=== PATIENT | female | born 1950 | race Caucasian/White ===

== ENCOUNTER 2018-03-09 17:42 | Inpatient (IN) | payer MEDICARE ==
[2018-03-09 18:29] LABS: #Basophils 0.1 thou/uL (0.0-0.2); #Eosinphils 0.1 thou/uL (0.0-0.7); #Lymphocytes 2.4 thou/uL (1.20-3.40); #Monocytes 0.8 thou/uL (0.11-0.59); #Neutrophils 9.4 thou/uL (1.40-6.50); %Basophils 0.5 % (0.0-1.0); %Eosinophils 0.8 % (0.0-10.0); %Lymphocytes 19.1 % (21.0-51.0); %Monocytes 6.1 % (0.0-10.0); %Neutrophils 73.6 % (42.0-75.0); Hemoglobin 13.3 g/dL (12.0-16.0); Mean Corpuscular HGB CONC 33.1 g/dL (32.0-36.0); Mean Corpuscular Hemoglobin 27.6 pg (27.0-31.0); Mean Corpuscular Volume 83.3 fl (81.0-99.0); Mean Platelet Volume 8.5 fL (7.4-10.4); Platelet Count 255 thou/uL (130-400); Red Blood Cell (RBC) Count 4.82 mill/uL (4.20-5.40); White Blood Cell (WBC) Count 12.8 thou/uL (4.8-10.8)
[2018-03-09 18:30] LABS: Bilirubin Negative (Negative); Blood, Urine Negative (Negative); Clarity Clear (Clear); Glucose, Urine (Dipstick) Negative (Negative); Leukocyte Negative (Negative); Nitrite Negative (Negative); Protein, Urine (Dipstick) Trace mg/dL (Neg-Trace); pH, Urine 6.5 (5.0-9.0)
[2018-03-09 18:46] LABS: ALT (SGPT) Less than 6 U/L (8-55); AST (SGOT) 15 U/L (5-34); Albumin 4.3 g/dL (3.4-4.8); Alkaline Phosphatase 85 U/L (40-150); Anion Gap 14 mmol/L (10-20); BUN (Urea Nitrogen) 13 mg/dL (9.8-20.1); Bilirubin, Total 0.8 mg/dL (0.2-1.2); CK (CPK) 231 U/L (29-168); CKMB 1.1 ng/mL (0-6.6); Calc. Creatinine Clearance 0 mL/min (70-130); Calcium 9.7 mg/dL (7.8-10.44); Carbon Dioxide 25 mmol/L (23-31); Chloride 104 mmol/L (98-107); Estimated GFR-MDRD 55; Globulin 3.2 g/dL (2.4-3.5); Glucose 112 mg/dL (80-115); Lipase 6 U/L (8-78); Potassium 4.1 mmol/L (3.5-5.1); Protein, Total 7.5 g/dL (6.0-8.3); Sodium 139 mmol/L (136-145); Troponin I 0.012 ng/mL (< 0.028)
--- NOTE | 2018-03-09 19:22 | RAD ---
SINGLE VIEW OF THE CHEST: 03/09/18 COMPARISON: None. HISTORY: Shortness of breath for four days and dyspnea. FINDINGS: Single view of the chest shows a normal sized cardiomediastinal silhouette. There is no evidence of c onsolidation, mass, or pleural effusion. The bones are unremarkable. IMPRESSION: No evidence of acute cardiopulmonary disease. POS: [facility]
[2018-03-09] MEDS ORDERED: Enoxaparin Sodium 80 MG/0.8 ML SYRINGE ONE (19:26)
[2018-03-09] MEDS ORDERED: Enoxaparin Sodium 100 MG/ML SYRINGE ONE (19:26)
[2018-03-09] MEDS ORDERED: methylPREDNISolone Sod Succ/PF 125 MG/2 ML VIAL ONE (19:26)
[2018-03-09 22:04] LABS: Troponin I Less than 0.010 ng/mL (< 0.028)
[2018-03-09 22:30] VITALS: BMI 63.8
[2018-03-09 22:39] LABS: Lactic Acid 0.9 mmol/L (0.5-2.2)
[2018-03-09] MEDS ORDERED: Gabapentin 400 MG CAP PO SCH (23:30)
[2018-03-09] MEDS ORDERED: traZODone HCl 50 MG TAB PO SCH (23:30)
[2018-03-10] MEDS ORDERED: Acetaminophen 325 MG TAB PO PRN (01:23)
[2018-03-10] MEDS ORDERED: Guaifenesin DM 100-10/5 ML UDCUP PO PRN (01:23)
[2018-03-10] MEDS ORDERED: Ondansetron HCl/PF 4 MG/2 ML Vial IVP PRN (01:23)
[2018-03-10] MEDS ORDERED: traZODone HCl 50 MG TAB PO PRN (01:23)
[2018-03-10] MEDS ORDERED: Albuterol Sulfate 2.5 mg/3 ml Neb NEB PRN (01:23)
--- NOTE | 2018-03-10 02:41 | HP ---
REASON FOR ADMISSION: Likely BACLOFEN intolerance, acute encephalopathy, acute respiratory failure with hypoxia again due to baclofen. HISTORY OF PRESENTING ILLNESS: The patient gives history of starting baclofen from last 3 days. She was on Flexeril, but her insurance was not covering Flexeril and, Dr. Danny Barksdale, her primary care physician switched her over to baclofen. She states she has been feeling crazy after starting baclofen. She could not walk straight and she was feeling lethargic. She was peeing all over and could not think straight. Around 4:30 p.m., she went to see Dr. Barksdale for the same. She was asked to go to the emergency room for further workup by her primary care physician. The patient states she has got bad back and neck area with herniated disk and hence the need for muscle relaxants. She normally ambulates with a cane. Currently, she is fully oriented and this entire history is obtained from her. PAST MEDICAL AND SURGICAL HISTORY: Hypertension, history of asthma, paroxysmal atrial fibrillation with prior EP study done in 1996 in [facility], right Achilles heel repair, morbid obesity, tonsillectomy, GERD, hypothyroidism , insomnia. CURRENT MEDICATIONS: Advair Diskus 100/50 mcg 2 puffs twice daily, albuterol inhaler q.6 hourly p.r.n., losartan 50 mg daily, trazodone 100 mg p.o. at bedtime, levothyroxine 150 mcg daily, Protonix 40 mg daily, Plavix 75 mg daily, VESIcare 10 mg daily, gabapentin 400 mg p.o. 3 times daily, metoclopramide 10 mg p.o. twice daily. ALLERGIES: SULFACETAMIDE. PERSONAL HISTORY: Does not abuse alcohol or drugs. No history of smoking. FAMILY HISTORY: Mother of a stroke and its complications at the age of 88 years. Father at the age of 89 years from old age. Code status is DNR. This was discussed with patient. Power of database tester is her son, Mr. Romero, number to reach is [phone]. REVIEW OF SYSTEMS: The following complete review of systems was negative, unless otherwise mentioned in the HPI or below: Constitutional: Weight loss or gain, ability to conduct usual activities. Skin: Rash, itching. Eyes: Double vision, pain. ENT/Mouth: Nose bleeding, neck stiffness, pain, tenderness. Cardiovascular: Palpitations, dyspnea on exertion, orthopnea. Respiratory: Shortness of breath, wheezing, cough, hemoptysis, fever or night sweats. Gastrointestinal: Poor appetite, abdominal pain, heartburn, nausea, vomiting, constipation, or diarrhea. Genitourinary: Urgency, frequency, dysuria, nocturia. Musculoskeletal: Pain, swelling. Neurologic/Psychiatric: Anxiety, depression. Allergy/Immunologic: Skin rash, bleeding tendency. PHYSICAL EXAMINATION: GENERAL: The patient is a 68-year-old female, who is currently not in any acute distress. VITAL SIGNS: Blood pressure 156/94, pulse 86 per minute, respiratory rate 24 per minute, temperature 99.5 degrees Fahrenheit, saturating 96% on 3 liters nasal cannula. NECK: Supple, no elevated JVD. HEENT: Eyes: Extraocular muscles intact. Pupils are reacting to light. Oral cavity, mucous membranes are moist. No exudates or congestion. CARDIOVASCULAR SYSTEM: S1, S2 heard. Regular rhythm. RESPIRATORY SYSTEM: Air entry 1+ bilateral. No rales or rhonchi. ABDOMEN: Soft, bowel sounds heard. No tenderness, rigidity or guarding. EXTREMITIES: No peripheral edema or calf tenderness. VASCULAR SYSTEM: Peripheral pulses 1+ bilateral, no ischemic ulcerations or gangrene. CENTRAL NERVOUS SYSTEM: No gross focal deficits seen. The patient is alert, awake, oriented x3. PSYCHIATRIC SYSTEM: The patient's mood is euthymic. No hallucinations or delusions. LABORATORY AND X-RAY FINDINGS: EKG done shows normal sinus rhythm at 84 beats per minute with poor R-wave progression. White count of 12, H&H 13 and 40, platelet count 255 with 73% neutrophils. D-dimer 1.0. Electrolytes are stable. BUN 13, creatinine 1.0. Glucose 112. Liver enzymes within normal limits. CK-MB 1.1. Troponin x2 is negative. BNP 44. Lipase is 6. Chest x- ray done shows no acute cardiopulmonary abnormalities. CLINICAL IMPRESSION AND PLAN: The patient will be admitted to telemetry for likely BACLOFEN intolerance/overdose with acute encephalopathy and acute hypoxic respiratory failure, which is slowly resolving on supplemental oxygen at present. The patient's mind is also clearing up and she is responding well to verbal questions. The patient states she is so much better now than she was in the morning. She is on multiple medications for her disk issues and chronic pain. The patient is also on trazodone, Reglan, gabapentin, all of which can cause psychotropic issues. Her baclofen will be held completely for now. We will continue her Plavix, Synthroid, Cozaar, Reglan, and half the dose of trazodone for now. PT evaluation will be requested in the morning. Once the patient is weaned off oxygen, she can be safely discharged home. She is otherwise hemodynamically stable at present. Please note I have seen and examined patient on 03/09/2018. JEMALD
[2018-03-10 05:40] LABS: #Lymphocytes 1.4 thou/uL (1.20-3.40); #Monocytes 0.1 thou/uL (0.11-0.59); #Neutrophils 6.1 thou/uL (1.40-6.50); %Eosinophils 0.4 % (0.0-10.0); %Lymphocytes 18.6 % (21.0-51.0); %Monocytes 1.1 % (0.0-10.0); %Neutrophils 79.9 % (42.0-75.0); Hemoglobin 13.2 g/dL (12.0-16.0); Mean Corpuscular HGB CONC 32.3 g/dL (32.0-36.0); Mean Corpuscular Hemoglobin 27.6 pg (27.0-31.0); Mean Corpuscular Volume 85.5 fl (81.0-99.0); Mean Platelet Volume 8.3 fL (7.4-10.4); Platelet Count 246 thou/uL (130-400); RBC Distribution Width 13.7 % (11.5-14.5); Red Blood Cell (RBC) Count 4.79 mill/uL (4.20-5.40); White Blood Cell (WBC) Count 7.6 thou/uL (4.8-10.8)
[2018-03-10 05:53] LABS: Anion Gap 11 mmol/L (10-20); BUN (Urea Nitrogen) 16 mg/dL (9.8-20.1); Calc. Creatinine Clearance 162 mL/min (70-130); Calcium 9.6 mg/dL (7.8-10.44); Carbon Dioxide 26 mmol/L (23-31); Chloride 104 mmol/L (98-107); Estimated GFR-MDRD 57; Glucose 177 mg/dL (80-115); Potassium 4.8 mmol/L (3.5-5.1); Sodium 136 mmol/L (136-145)
[2018-03-10] MEDS ORDERED: Levothyroxine Sodium 25 MCG TAB PO SCH (06:00)
[2018-03-10] MEDS ORDERED: Levothyroxine Sodium 112 MCG TAB PO SCH (06:00)
[2018-03-10] MEDS: Metoclopramide HCl 10 MG TAB PO SCH ×2 (07:05→09:17)
[2018-03-10 08:31] VITALS: TEMP 97.9
[2018-03-10] MEDS ORDERED: Clopidogrel Bisulfate 75 MG TAB PO SCH (09:00)
[2018-03-10] MEDS ORDERED: Gabapentin 400 MG CAP PO SCH (09:00)
[2018-03-10] MEDS ORDERED: TROSPIUM 20 MG TABLET PO SCH ×2 (09:00→11:00)
[2018-03-10] MEDS ORDERED: Enoxaparin Sodium 40 MG/0.4 ML SYRINGE SC SCH (09:00)
[2018-03-10] MEDS ORDERED: Losartan 25 MG TAB PO SCH (09:00)
[2018-03-10] MEDS ORDERED: Famotidine 20 MG TAB PO SCH (09:00)
--- NOTE | 2018-03-10 13:19 | ULT ---
BILATERAL LOWER EXTREMITY VENOUS DUPLEX ULTRASOUND INCLUDING COLOR AND SPECTRAL DOPPLER IMAGING: HISTORY: A 68-year-old female with a history of hypoxia and shortness of breath. FINDINGS: Exam performed from groin to ankle including visualized greater saphenous, common femoral, superficia l femoral, profunda femoral, popliteal, trifurcation, and posterior tibial vein regions. There is ph asic flow with normal compressibility and normal augmentation at all levels. No intraluminal thrombu s. IMPRESSION: No evidence for deep venous thrombosis. Exam was somewhat limited technically because of large body habitus. POS: [facility]
[2018-03-10 15:25] VITALS: BP 136/79
--- NOTE | 2018-03-10 22:27 | PDOC.EVN ---
Event Note - Event Note Event Note: discharge summary dictated [id number]
--- NOTE | 2018-03-11 07:11 | DIS ---
DATE OF ADMISSION: 03/09/2018 DATE OF DISCHARGE: 03/10/2018 DISCHARGE DIAGNOSES: 1. Baclofen intolerance with acute encephalopathy. 2. Acute hypoxic respiratory insufficiency, likely secondary to baclofen sedation. 3. Hypertension. 4. History of asthma. 5. Paroxysmal atrial fibrillation. 6. Hypothyroidism. 7. Morbid obesity. DISCHARGE DIAGNOSES: 1. Baclofen intolerance with acute encephalopathy. 2. Acute hypoxic respiratory insufficiency, likely secondary to baclofen sedation. 3. Hypertension 4. History of asthma. 5. Paroxysmal atrial fibrillation. 6. Hypothyroidism. 7. Morbid obesity. HOSPITAL COURSE: The patient is a 68-year-old female with a past medical history of asthma, hyperten kasandra, paroxysmal atrial fibrillation with prior EP study done in 1996, GERD, hypothyroidism, and morb id obesity who presents with "feeling crazy" after starting baclofen. The patient could not walk str aight and was feeling lethargic and had some urinary incontinence. The patient was asked to go to [facility] ED after she saw her PCP. The patient states that she had been doing very well on Flexeril 10 mg t .i.d. as needed. However, her insurance decided they would cover baclofen instead and she actually s tarted feeling strange after starting that about 3 days prior to admission. The patient was admitted . She was slightly hypoxic. She did have a slightly elevated D-dimer. The patient's baclofen was h eld and she actually improve the next day. The patient states she was back to her old self. Her oxy gen was also weaned off. She was trialed without oxygen and she did well. Her D-dimer was slightly elevated. However, she could not do a CTP or a VQ scan; however, she did have leg Dopplers done [facility] were negative for DVT bilaterally. The patient was discharged with being off of her baclofen and p utting her back on the Flexeril. Of note, the patient actually was told that the Flexeril would be a ffordable on the 4 dollar list at most pharmacies. DISCHARGE PHYSICAL EXAMINATION: VITAL SIGNS: Temperature 97.9, pulse 87, respirations 20, blood pressure 157/91. GENERAL: Awake, alert, oriented, and morbidly obese. HEENT: Mucous membranes moist. HEART: Regular rate and rhythm, no murmurs, rubs or gallops. LUNGS: Clear to auscultation bilaterally. ABDOMEN: Nontender, nondistended. EXTREMITIES: No cyanosis, clubbing or edema. DISCHARGE MEDICATIONS: 1. Tylenol #3. 2. Plavix 75 mg p.o. daily. 3. Flexeril 10 mg p.o. t.i.d. p.r.n. for muscle spasms. 4. Synthroid 137 mcg p.o. daily. 5. Losartan 50 mg p.o. daily. 6. Reglan 10 mg p.o. b.i.d. 7. Protonix 40 mg p.o. daily. 8. VESIcare 10 mg p.o. daily. 9. Trazodone 100 mg p.o. at bedtime. 10. Kenalog cream. DISCHARGE FOLLOWUP: The patient will follow up with her PCP, Dr. Danny Barksdale, in the next 3-4 days aft er discharge.
== END 2018-03-10 17:19 | disposition home or self-care (01) | DRG 189 ==
LOC: SCSER 17:42 → 2NO 19:14
PROVIDERS: ADMIT Emergency Medicine; ATTEND Emergency Medicine
DX: J96.01 Acute respiratory failure with hypoxia (principal); G93.40 Encephalopathy, unspecified; Z68.44 Body mass index [BMI] 60.0-69.9, adult; T42.8X5A Adverse effect of antiparkinsonism drugs and other central muscle-tone depressants, initial encounter; Z79.899 Other long term (current) drug therapy; I10 Essential (primary) hypertension; J45.909 Unspecified asthma, uncomplicated; I48.0 Paroxysmal atrial fibrillation; E66.01 Morbid (severe) obesity due to excess calories; K21.9 Gastro-esophageal reflux disease without esophagitis; G47.00 Insomnia, unspecified; E03.9 Hypothyroidism, unspecified; Z79.02 Long term (current) use of antithrombotics/antiplatelets; Z88.2 Allergy status to sulfonamides
CPT/HCPCS: 36415; 71045; 80048; 80053; 81003; 82553; 83605; 83690; 83880; 84484; 85025; 85379; 87040; 93005; 93970; 94640; 96372; 96374; A4353; J1650; J1956; J2930; J7620

== ENCOUNTER 2018-10-01 10:25 | Emergency (ER) | payer MEDICARE ==
[2018-10-01] MEDS ORDERED: Ketorolac Tromethamine 30 MG/ML VIAL ONE (10:42)
== END 2018-10-01 11:18 | disposition home or self-care (01) ==
LOC: SCSER 10:25
DX: M25.562 Pain in left knee (principal); M25.561 Pain in right knee; E03.9 Hypothyroidism, unspecified; K21.9 Gastro-esophageal reflux disease without esophagitis; I10 Essential (primary) hypertension; J45.909 Unspecified asthma, uncomplicated
CPT/HCPCS: 96372; J1885

== ENCOUNTER 2018-11-09 19:04 | Inpatient (IN) | payer MEDICARE ==
[2018-11-09] MEDS ORDERED: Diltiazem 125 MG/25 ML ONE (20:05)
[2018-11-09 20:06] LABS: #Eosinphils 0.1 thou/uL (0.0-0.7); #Lymphocytes 1.5 thou/uL (1.20-3.40); #Monocytes 0.7 thou/uL (0.11-0.59); #Neutrophils 8.9 thou/uL (1.40-6.50); %Basophils 0.3 % (0.0-1.0); %Eosinophils 0.6 % (0.0-10.0); %Lymphocytes 13.1 % (21.0-51.0); %Monocytes 6.1 % (0.0-10.0); %Neutrophils 79.9 % (42.0-75.0); Hemoglobin 12.4 g/dL (12.0-16.0); Mean Corpuscular HGB CONC 31.3 g/dL (32.0-36.0); Mean Corpuscular Hemoglobin 27.4 pg (27.0-31.0); Mean Corpuscular Volume 87.8 fL (78.0-98.0); Platelet Count 308 thou/uL (130-400); RBC Distribution Width 13.7 % (11.5-14.5); Red Blood Cell (RBC) Count 4.52 mill/uL (4.20-5.40); White Blood Cell (WBC) Count 11.1 thou/uL (4.8-10.8)
[2018-11-09 20:28] LABS: ALT (SGPT) Less than 7 U/L (8-55); AST (SGOT) 17 U/L (5-34); Alkaline Phosphatase 89 U/L (40-150); Anion Gap 10 mmol/L (10-20); BUN (Urea Nitrogen) 12 mg/dL (9.8-20.1); Bilirubin, Total 0.5 mg/dL (0.2-1.2); CK (CPK) 679 U/L (29-168); Calc. Creatinine Clearance 0 mL/min (70-130); Calcium 9.5 mg/dL (7.8-10.44); Carbon Dioxide 32 mmol/L (23-31); Chloride 102 mmol/L (98-107); Estimated GFR-MDRD 41; Globulin 3.2 g/dL (2.4-3.5); Glucose 130 mg/dL (80-115); Potassium 4.8 mmol/L (3.5-5.1); Protein, Total 7.2 g/dL (6.0-8.3); Sodium 139 mmol/L (136-145)
[2018-11-09] MEDS ORDERED: Diltiazem HCl 125 MG, Admixture Fee 1 EACH in Sodium Chloride 0.9% 100 ML IVPB SCH ×2 (20:30→21:30)
[2018-11-09 20:46] LABS: Bilirubin Moderate (Negative); Blood, Urine Negative (Negative); Clarity CLEAR (Clear); Glucose, Urine (Dipstick) Negative (Negative); Leukocyte Negative (Negative); Nitrite Negative (Negative); Protein, Urine (Dipstick) 30 mg/dL (Neg-Trace); Specific Gravity, Urine 1.027 (1.002-1.036)
[2018-11-09 20:48] LABS: Bacteria/HPF None Seen HPF (None Seen); Pathc Cast-AUWi Flag 2.32 (0-2.49); RBC/HPF 0-3 HPF (0-3); WBC/HPF 0-3 HPF (0-3)
--- NOTE | 2018-11-09 20:48 | RAD ---
FRONTAL VIEW CHEST: Date: 11/09/18 COMPARISON: 03/09/18. INDICATION: History of multiple falls, chest pain. FINDINGS: Cardiac silhouette is enlarged. There is interstitial opacification and pulmonary vascular congestion bilaterally. No obvious effusion. Left lateral lung base is partially excluded. IMPRESSION: Findings which favor decompensated CHF. Correlate clinically. Imaging follow-up is recommended. POS: [facility]
[2018-11-09 21:03] LABS: Renal Epithelial 0-3 HPF (0-3)
[2018-11-09] MEDS ORDERED: Morphine 4 MG/ML VIAL ONE (21:52)
[2018-11-10] MEDS ORDERED: Ondansetron PF 4 MG/2 ML Vial IVP PRN (00:27)
[2018-11-10] MEDS ORDERED: Acetaminophen 325 MG TAB PO PRN (00:27)
[2018-11-10 01:23] LABS: Troponin I 0.012 ng/mL (< 0.028)
--- NOTE | 2018-11-10 02:26 | HP ---
PRIMARY CARE DOCTOR: Dr. Danny Barksdale. CODE STATUS: Full code. TIME OF EVALUATION: 12:00 a.m. CHIEF COMPLAINT: Weakness. HISTORY OF PRESENT ILLNESS: This is a 68-year-old female patient with past medical history of hypertension, asthma, hypothyroidism, GERD, came to the hospital after having severe generalized weakness all day long, multiple times falls, no clear triggers, no alleviating factors, the patient developed also some dyspnea and chest pain. No nausea. No fevers. She reported the symptoms were moderate. They started insidiously and has gradually been getting worse. REVIEW OF SYSTEMS: CONSTITUTIONAL: No fever or chills. The patient reported generalized weakness. RESPIRATORY: No cough, sputum production, or shortness of breath. CARDIOVASCULAR: No chest pain or palpitation. GASTROINTESTINAL: No nausea. No vomiting or abdominal pain. PRODUCTION LINE WORKER: No dizziness, headache, or feeling lightheaded. GENITOURINARY: No burning on urination. EXTREMITIES: Bilateral leg swelling. All other systems were reviewed and negative except for the findings mentioned above. PAST MEDICAL HISTORY: As mentioned in the HPI. FAMILY HISTORY: Reviewed and noncontributory to current presentation. PAST SURGICAL HISTORY: Cardiac cath in 1996. Surgical history of orthopedic surgery, right Achilles heel repair, surgical history of tonsillectomy. PSYCHIATRIC HISTORY: No previous psych history. SOCIAL HISTORY: No alcohol, no drugs, and no smoking history. ALLERGIES: IODINE AND SULFA. REPORTED MEDICATIONS: 1. Oxybutynin. 2. Trazodone. 3. Losartan. 4. Levofloxacin. 5. Pantoprazole. 6. Tramadol. 7. Metoclopramide. 8. Cyclobenzaprine. 9. Benzonatate. 10. Gabapentin. 11. Tylenol 3. 12. [place]. PHYSICAL EXAMINATION: VITAL SIGNS: On presentation, blood pressure 143/79 with heart rate 96, respiratory rate was 22, temperature 98.8, pain was 8/10. Oxygen saturation was 94%. GENERAL APPEARANCE: The patient is alert, oriented, not in acute distress. HEENT: Eyes; normal conjunctivae. Moist oral mucosa. Anicteric. No JVD. RESPIRATORY: Bilateral air entry. No rales. No wheezing. Symmetric expansion. CARDIOVASCULAR: Irregular rhythm. Rate is controlled. No murmurs. No gallops. Bilateral leg edema. The patient is on Cardizem drip. ABDOMEN: Soft. Normal bowel sounds. MUSCULOSKELETAL: Baseline range of motion and strength. No tenderness. Skin is warm, intact. No pallor. No rash. No redness. Peripheral pulses are present. Capillary refill seems to be intact. NEUROLOGIC: No evidence of any new focal weakness. Baseline speech. Cranial nerves seems to be intact. PSYCHIATRIC: The patient has good mood. No anxiety. Optimal judgment. Baseline for this patient, the patient is unable to ambulate by herself, she needs help and she is morbidly obese. DIAGNOSTIC DATA: EKG was reviewed. The patient presented with sinus rhythm with premature ventricular complexes at a rate of 93, FL 146, QRS 80, QT corrected 432. Also another EKG was done showed atrial fibrillation with RVR, nonspecific ST abnormalities, ventricular rate was 128. FL undetermined, QRS 82, QT corrected 505. LABORATORY DATA: Labs are reviewed. The patient has white count 11.1, hemoglobin 12.4, MCV 87.8, platelet count 308. Chemistry; sodium 139, potassium 4.8, chloride 102, carbon dioxide 32, anion gap 10, BUN 12, creatinine 1.30, previous creatinine was 0.97, GFR 41, glucose 130, lactic acid 1.4, calcium 9.5, magnesium 2.0, total bilirubin 0.5, AST 17, ALT less than 7, alk phos 89. CK 679. Troponin 0.010. Beta natriuretic peptide 18.5. Serum total protein 7.2, albumin 4.0, globulin 3.2, albumin-globulin ratio is 1.3. TSH 27. Urine was done and showed no white count. ASSESSMENT AND PLAN: The patient will be placed in the hospital due to the following medical problems: 1. Atrial fibrillation with rapid ventricular response. The patient was given Cardizem. The patient was put on Cardizem drip. Rate is controlled right now. We will reconcile home medications, call Cardiology for medication adjustment in the morning. 2. Mildly elevated creatinine of 1.3, it was 0.9 at the time of admission, we will monitor, and will treat accordingly. 3. Hyperglycemia, glucose 130. No history of diabetes reported. We will monitor and treat accordingly. 4. Deep venous thrombosis prophylaxis. 5. Morbidly obese. Advised to lose weight. 6. The patient will need certified social workers in health care and case repairer evaluation since the patient is living alone. The son who takes care of her is in the hospital and unable to continue caring for the patient. Job ID: [id number] MTDD
[2018-11-10 03:49] LABS: #Eosinphils 0.1 thou/uL (0.0-0.7); #Lymphocytes 1.7 thou/uL (1.20-3.40); #Monocytes 0.8 thou/uL (0.11-0.59); #Neutrophils 7.4 thou/uL (1.40-6.50); %Basophils 0.3 % (0.0-1.0); %Lymphocytes 16.5 % (21.0-51.0); %Monocytes 8.3 % (0.0-10.0); %Neutrophils 73.9 % (42.0-75.0); Hemoglobin 11.7 g/dL (12.0-16.0); Mean Corpuscular Hemoglobin 28.2 pg (27.0-31.0); Mean Platelet Volume 7.7 fL (7.4-10.4); Platelet Count 254 thou/uL (130-400); RBC Distribution Width 13.7 % (11.5-14.5); Red Blood Cell (RBC) Count 4.16 mill/uL (4.20-5.40)
[2018-11-10 04:08] LABS: Anion Gap 14 mmol/L (10-20); BUN (Urea Nitrogen) 10 mg/dL (9.8-20.1); Calc. Creatinine Clearance 147 mL/min (70-130); Calcium 8.7 mg/dL (7.8-10.44); Carbon Dioxide 27 mmol/L (23-31); Chloride 102 mmol/L (98-107); Estimated GFR-MDRD 49; Glucose 118 mg/dL (80-115); Potassium 3.8 mmol/L (3.5-5.1); Sodium 139 mmol/L (136-145)
[2018-11-10 04:13] LABS: Troponin I 0.014 ng/mL (< 0.028)
[2018-11-10] MEDS: Furosemide 40 MG/4 ML VIAL SLOW IVP SCH ×2 (05:48→14:23)
[2018-11-10] MEDS ORDERED: Enoxaparin Sodium 40 MG/0.4 ML SYRINGE SC SCH (09:00)
--- NOTE | 2018-11-10 17:40 | CON ---
DATE OF CONSULTATION: CARDIOLOGY CONSULT PRIMARY CARE PHYSICIAN: Danny Barksdale DO PRIMARY PIPE BUFFER: Padma Nolan MD REASON FOR CONSULT: Atrial fibrillation with rapid ventricular response. HISTORY OF PRESENT ILLNESS: Ms. Flores is a 68-year-old female with a significant history of hypertension, asthma, hypothyroidism, COPD, and paroxysmal atrial fibrillation with EP study in 1996 in [place], prediabetic and obese. The patient started having feeling of the "flipping of heart" for 6 weeks. Also, with the intermittent sharp and squeezing-like pain for several seconds for over 6 weeks, which is very similar to symptom when she was found to have atrial fibrillation in 1996, however yesterday she feel worsening of dizziness and loss of balance. She fell twice yesterday at home and also she had worsening of shortness of breath. About the reason, the patient called the EMS and the patient was transferred to emergency department for further evaluation and treatment. She was found to have the atrial fibrillation with rapid ventricular response with heart rate more than 200. The patient was given Cardizem 10 mg IV push bolus with Cardizem drip, and the patient is converted back to sinus rhythm. When the patient was transferred to the telemetry floor last night around 1 o'clock in the morning, the patient's heart rate was back to the sinus rhythm, sinus rhythm is 110 this morning with Cardizem 5 mg an hour. She had a history of atrial fibrillation, however, she has not seen any cardiologists over the 2 years since she moved to the [place] from [place]. During the initial Cardiology consult assessment, the patient denied chest pain or heaviness, squeezing-like pain to her chest, fluttering, palpitation, dizziness, shortness of breath, or any other cardiac complaints. The patient is taking Plavix due to venous insufficiency. She has the ultrasound to her lower extremities, however, she cannot remember it was in the vein or artery studies. She underwent EP study in 1996 in [place]. Since then, she has not had any cardiac workup. She was in the hospital in February 2018 for encephalopathy secondary to baclofen. PAST MEDICAL HISTORY: 1. Hypertension. 2. Paroxysmal atrial fibrillation. 3. Asthma. 4. Hypothyroidism. 5. Insomnia. 6. GERD. 7. COPD, is on home O2 of 4 L nausea cannula. 8. Prediabetes. 9. Morbid obesity. 10. Vein insufficiency. PAST SURGICAL HISTORY: EP study in 1996, right Achilles heel repair, tonsillectomy, and thyroid removed in 2007. FAMILY HISTORY: The patient's father had a medical history of COPD and congestive heart failure. The patient's mother has history of pacemaker placement and CVA. The patient's grandfather in the maternal side had a history of cancer and the patient's grandmother in the maternal side has stroke. SOCIAL HISTORY: She is . She is living with her son. She is an ex- smoker, quit in 2007. She denied EtOH or illicit drug abuse. She drink Diet Coke 2 to 3 cans a day. She had a sedentary lifestyle for more than 2 years. ALLERGIES: SHE IS ALLERGIC TO IODINE, SULFA, AND BACLOFEN. HOME MEDICATIONS: 1. Losartan 50 mg once a day. 2. Levothyroxine 300 mcg once a day. 3. Plavix 75 mg once a day. 4. every 8 hours as needed. 5. Trazodone 100 mg once a day. 6. Kenalog ointment 0.5 tube topical once a day as needed. 7. VESIcare 10 mg once a day. 8. Protonix 40 mg once a day. 9. Tessalon 100 mg as needed. 10. Flexeril 10 mg for 3 times a day as needed. 11. Reglan 10 mg twice a day. 12. Gabapentin 400 mg 3 times a day. 13. Oxybutynin 10 mg twice a day. REVIEW OF SYSTEMS: Twelve-point review of systems negative unless otherwise mentioned in the HPI. The patient used to use a cane, but over the last couple of months, she is immobile and she does not move from her bed. She denies blood in the stool or urine. She has chronic joint pain. She denied constipation or diarrhea. PHYSICAL EXAMINATION: VITAL SIGNS: Blood pressure 138/69; temperature 98.1; pulse is 73, sinus rhythm ; respiratory rate 18, and O2 sat 93% with 4 L nasal cannula. GENERAL: The patient is alert and oriented x4, not in acute distress. HEENT: Head; normocephalic, atraumatic. Eyes; extraocular muscle movement intact. ENT and mouth; oral and nasal mucosa moist without lesion. RESPIRATORY: The patient has expiratory wheezing and diminished at the bases. CARDIOVASCULAR: Regular rate and rhythm. Normal S1 and S2. There is no S3 or S4. No significant murmur, hives, or thrills noted. 2+ pulses in upper extremities and 2+ pulses on the dorsalis pedis and posterior tibial. Unable to palpate popliteal and femoral due to body structure. No edema in the lower extremities. Carotid pulses are present without bruits or thrill. ABDOMEN: Soft, nontender. No mass to palpitate. Bowel sounds are present. SKIN: Warm and dry. No lesion, rash, or erythema noticed. MUSCULOSKELETAL: The patient is able to move all extremities. NEUROLOGIC: The patient is alert and oriented x4. Nonfocal. PSYCHIATRIC: The patient's mood is appropriate. DIAGNOSTIC DATA: A 12-lead EKG shows sinus rhythm with occasional PVC. WBC 10.0, hemoglobin 11.7, hematocrit of 36.6, and platelet 254. Sodium of 139, potassium 3.8, BUN 10, creatinine 1.11, glucose 118. AST 17, ALT is less than 7. Creatine kinase is 679. Troponin is 0.010, 0.012, and 0.014. TSH is 27.3158. The patient's chest x-ray shows interstitial opacification and pulmonary vascular congestion bilaterally, which indicate compensation to CHF. ASSESSMENT AND PLAN: 1. Atrial fibrillation with rapid ventricular response. The patient converted back to the sinus rhythm with Cardizem 10 mg bolus and Cardizem 5 mg an hour and she is on Lovenox 40 mg subcu once a day, which we would like to change to anticoagulants doses 1 mg/kg twice a day. Echocardiogram is ordered. At this moment, the patient is in sinus rhythm. We would like to continue to monitor on the telemetry and will be changed to p.o. form from tomorrow if the patient stay in sinus rhythm. 2. Acute kidney insufficiency. Again, the patient's kidney function is slightly improved from yesterday. We would like to continue to monitor. 3. Prediabetes. The patient's fasting blood glucose is a bit elevated, which is managed by the patient's primary care doctor. 4. Chronic obstructive pulmonary disease with home O2 of 4 L nasal cannula. The patient's condition is stable with 4 L nasal cannula, at this moment, which is managed by primary care doctor. 5. Hypothyroidism. At home, she say she is on levothyroxine 300 mcg once a day, which is not started yet, and the patient's TSH was more than 27, which is managed by the patient's primary care doctor. 6. Morbid obesity. Weight management education given to the patient. Thank you for allowing the Cardiology Service to participate in the care of this patient. We will follow along the patient's care team and make further recommendation as appropriate. Job ID: [id number] MTDD
[2018-11-10] MEDS ORDERED: Betamethasone Val 0.1% OINT 15 GM TUBE TOP PRN (19:44)
--- NOTE | 2018-11-10 19:45 | PDOC.PN ---
- Subjective Encounter Start Date: 11/10/18 Encounter Start Time: 19:25 Subjective: f/u for A-fib RVR on Cardizem/Lovenox and recent falls with weakness -: c/o bladder irritation and concern for UTI. - Objective MAR Reviewed: Yes Vital Signs & Weight: Vital Signs (12 hours) Temp Pulse Resp BP Pulse Ox 11/10/18 15:33 99.3 F 73 18 110/51 L 96 11/10/18 11:38 98.1 F 73 18 138/69 93 L Weight Weight 424 lb 1.6 oz I&O: 11/09/18 11/10/18 11/11/18 06:59 06:59 06:59 Intake Total 444 720 Output Total 225 4800 Balance 219 -4080 Result Diagrams: 11/10/18 03:41 11/10/18 03:41 Additional Labs: Laboratory Tests 11/09/18 11/09/18 11/09/18 19:52 19:52 19:52 WBC 11.1 H Creatinine 1.30 H Magnesium 2.0 Troponin I B-Natriuretic Peptide TSH 3rd Generation 27.3158 H 11/09/18 11/09/18 11/10/18 19:52 19:52 00:37 WBC Creatinine Magnesium Troponin I 0.010 0.012 B-Natriuretic Peptide 18.5 TSH 3rd Generation 11/10/18 03:41 WBC Creatinine Magnesium Troponin I 0.014 B-Natriuretic Peptide TSH 3rd Generation Radiology Reviewed by me: Yes (Echo - EF 60-65%, LAE) EKG Reviewed by me: Yes (Tele - SR) Phys Exam - Physical Examination Constitutional: NAD HEENT: PERRLA, sclera anicteric, oral pharynx no lesions Neck: no nodes, no JVD, supple, full ROM Respiratory: no wheezing, no rales, no rhonchi S1, S2 Cardiovascular: RRR, no significant murmur, no rub, gallop morbidly obese Gastrointestinal: soft, no distention, positive bowel sounds Musculoskeletal: no edema, pulses present Neurological: normal sensation, moves all 4 limbs Psychiatric: A&O x 3 Skin: normal turgor, cap refill <2 seconds Dx/Plan (1) Atrial fibrillation with RVR Code(s): I48.91 - UNSPECIFIED ATRIAL FIBRILLATION Status: Acute Comment: converted to SR on Cardizem gtt, continue IV Cardizem and transition to po in 24h, OAC options for d/c (2) Hypothyroidism Code(s): E03.9 - HYPOTHYROIDISM, UNSPECIFIED Status: Chronic Comment: Uncontrolled, start Levothyroxine, check FT4 (3) Chronic respiratory failure with hypoxia Code(s): J96.11 - CHRONIC RESPIRATORY FAILURE WITH HYPOXIA Status: Chronic Comment: Continue O2 @ baseline home requirements (4) Morbid obesity Code(s): E66.01 - MORBID (SEVERE) OBESITY DUE TO EXCESS CALORIES Status: Chronic Comment: Dietitian consult, low-fat diet (5) UTI (urinary tract infection) Status: Acute Qualifiers: Urinary tract infection type: acute cystitis Comment: Suspected, start Rocephin 2gm IV daily - Plan continue antibiotics, PT/OT, psychosocial rehabilitation counselor, out of bed/ambulate Stable currently -: Resume home medication regimen -: Start Rocephin 2gm IV daily -: Continue Cardizem gtt -: Resume Levothyroxine * D/C Lasix * AM lab: BMP
[2018-11-10] MEDS ORDERED: Trospium 20 MG TAB PO SCH (20:45)
[2018-11-10] MEDS: Acetaminophen/Codeine 30-300mg Tablet PO SCH (22:14)
[2018-11-10] MEDS: cefTRIAXone\\ROCEPHIN 2 GM in Sodium Chloride 0.9% 100 ML IVPB SCH (22:15)
[2018-11-10] MEDS: Gabapentin 400 MG CAP PO SCH (22:17)
[2018-11-11 05:54] LABS: Anion Gap 14 mmol/L (10-20); BUN (Urea Nitrogen) 12 mg/dL (9.8-20.1); Calc. Creatinine Clearance 156 mL/min (70-130); Calcium 9.4 mg/dL (7.8-10.44); Carbon Dioxide 28 mmol/L (23-31); Chloride 100 mmol/L (98-107); Estimated GFR-MDRD 52; Glucose 130 mg/dL (80-115); Potassium 4.1 mmol/L (3.5-5.1); Sodium 138 mmol/L (136-145)
[2018-11-11] MEDS: Levothyroxine Sodium 25 MCG TAB PO SCH (05:54)
[2018-11-11] MEDS: Levothyroxine Sodium 112 MCG TAB PO SCH (05:55)
[2018-11-11] MEDS: Acetaminophen/Codeine 30-300mg Tablet PO SCH ×3 (05:56→21:18)
--- NOTE | 2018-11-11 09:01 | PDOC.CTH ---
Cardiology Progress Note - Subjective The pt seen and examined. No overnight events. No cardiac complaints. Contact isolation for possible C-diff? She has been having cont. diarrhea since last night. - Objective Vital Signs Temp Pulse Resp BP Pulse Ox 11/11/18 04:05 98.6 F 87 20 134/72 93 L Weight 424 lb 1.6 oz 11/10/18 11/11/18 11/12/18 06:59 06:59 06:59 Intake Total 444 1080 Output Total 225 5850 Balance 219 -4770 - Physical Examination General/Neuro: alert & oriented x3 Neck: no JVD present Lungs: other: (diminished at bases) Heart: RRR Abdomen: soft Extremities: other: (No edema) - Telemetry Telemetry Rhythm: SR 90s - Labs Result Diagrams: 11/10/18 03:41 11/11/18 05:17 Troponin/CKMB Troponin I 0.014 ng/mL (< 0.028) 11/10/18 03:41 - Assessment/Plan 1. Afib with RVR - Remains in SR since 11/10/2018 with Cardizem drip, which will be changed Cardizem 180mg qd from today. On Lovenox 180mg subq q12hrs from today (the dose was verified by pharmacist) 2. HTN - stable 3. COPD/Asthma with Home O2 4LNC - stable 4. Hypothyroidism - Levothyroxin, which managed by PCP 5. UTI - on IV ABX; managed by PCP 6. Morbid obesity MAR reviewed 7. Diarhea. * Echo on 11/10/2018 showed EF 60-65%, mod-severe dilated LA, mild TR, and trace MR. Pt. seen and eval. by me. I agree with the A/P by the APPRAISER ART Review of Systems - Review of Systems Constitutional: reports: weakness EENTM: reports: no symptoms reported Respiratory: reports: no symptoms reported Cardiac (ROS): reports: no symptoms reported ABD/GI: reports: no symptoms reported : reports: see HPI
[2018-11-11] MEDS ORDERED: Diltiazem HCl 125 MG, Admixture Fee 1 EACH in Sodium Chloride 0.9% 100 ML IVPB SCH (09:04)
[2018-11-11] MEDS: Enoxaparin Sodium 100 MG/ML SYRINGE SC SCH ×2 (09:48→21:13)
[2018-11-11] MEDS: Enoxaparin Sodium 80 MG/0.8 ML SYRINGE SC SCH ×2 (09:48→21:13)
[2018-11-11] MEDS: Oxybutynin 5 MG TAB PO SCH ×2 (09:49→21:13)
[2018-11-11] MEDS: Gabapentin 400 MG CAP PO SCH ×3 (09:49→21:13)
--- NOTE | 2018-11-11 10:33 | CON ---
DATE OF CONSULTATION: 11/10/2018 ADDENDUM: INDICATION FOR CONSULTATION: A 68-year-old female with atrial fibrillation with rapid ventricular response. HISTORY OF PRESENT ILLNESS: Please also refer to the notes dictated by my nurse practitioner. She and we have already seen and discussed this patient. I would agree with her assessment and plan. This unfortunate lady who has had some history of atrial fibrillation in the past and also has COPD and has had some falls at home, was brought to the hospital as she has complained of some weakness yesterday. Her son usually takes care of her and he actually also was admitted to the hospital to undergo a GI surgical procedure. She has not been followed up by cap coverer for several years. Apparently, she was seen by someone in [place], so she moved here and then she almost lost to followup. She denies any chest pain, but she does have COPD and has chronic shortness of breath. She noticed that she had been having some palpitations and thus presented to the hospital, was found to have atrial fibrillation. She was given IV diltiazem and was then converted back to normal sinus rhythm. She apparently had some type of EP study in [place] in the past, but said that they were unable to do any ablation and uncertain if whether or not she was having atrial fibrillation at that time or possibly SVT or some other arrhythmia. We do not have those records available. PAST MEDICAL HISTORY: Please refer to the notes dictated. SOCIAL HISTORY: Please refer to the notes dictated. FAMILY HISTORY: Please refer to the notes dictated. REVIEW OF SYSTEMS: Please refer to the notes dictated. MEDICATIONS: Please refer to the notes dictated. PHYSICAL EXAMINATION: GENERAL: Reveals a morbidly obese female, who is in no acute distress at this time. She is very pleasant. She is oriented. VITAL SIGNS: Her blood pressure is 130/69 and she is afebrile. Heart rate is in the 70s, shows sinus rhythm, O2 saturations are 94%. She is on nasal oxygen. HEENT: Shows the head to be normocephalic and atraumatic. Carotid pulses are present. I cannot hear any bruits. Her chest has bilateral expiratory wheezing. CARDIOVASCULAR: Reveals a regular rate and rhythm at this time. There were no gross murmurs noted. ABDOMEN: Shows morbid obesity. Positive bowel sounds are present. EXTREMITIES: Showed 2+ lower extremity edema. She has what appears to be intertrigo in the right popliteal space. Pedal pulses are difficult to palpate, but appear to be present. NEUROLOGIC: She appears to be intact, but she is morbidly obese and does not get out of the bed. She actually has been falling at home, but is able to sometimes get up with a little bit of assistance. Neurologically otherwise is appropriate. SKIN: Warm and dry. LABORATORY DATA: EKG showed a sinus rhythm, but no acute changes. Her laboratory data was already outlined. She did have an elevation of BNP and also her cardiac enzymes are indeterminate, did not show any significant evidence of myocardial infarction. The EKG did not show any evidence of ischemia. IMPRESSION: 1. Atrial fibrillation with rapid ventricular response, which converted back to sinus rhythm. I would agree with the present medications with diltiazem, can switch her over to p.o. medications. Also would cover her with Lovenox due to her decreased mobility. However, she says at home, she is able to walk around. 2. Probable diastolic dysfunction with congestive heart failure. We will continue to monitor this and would agree with IV diuretics. 3. Most likely chronic kidney disease. This may be acute on chronic. This will be dealt with by the primary care physician. 4. History of chronic obstructive pulmonary disease. Would be careful with not to give her too much oxygen since she is morbidly obese, she may have CO2 retention. We are more than happy to continue to follow the patient with you throughout her course. Job ID: [id number]
[2018-11-11] MEDS: Nystatin Powder 15 GM BOT TOP SCH ×2 (12:13→21:14)
[2018-11-11] MEDS ORDERED: Saccharomyces boulardii 250 MG CAP PO SCH (12:15)
--- NOTE | 2018-11-11 13:30 | PDOC.PN ---
- Subjective Encounter Start Date: 11/11/18 Encounter Start Time: 13:30 Subjective: f/u for A-fib RVR, UTI and weakness. Feels ok but c/o diarrhea. - Objective MAR Reviewed: Yes Vital Signs & Weight: Vital Signs (12 hours) Temp Pulse Pulse Pulse Resp BP BP 11/11/18 11:05 104 H 83 109/62 114/55 L 11/11/18 04:05 98.6 F 87 20 BP Pulse Ox 11/11/18 11:05 11/11/18 04:05 134/72 93 L Weight Weight 424 lb 1.6 oz I&O: 11/10/18 11/11/18 11/12/18 06:59 06:59 06:59 Intake Total 444 1080 Output Total 225 5850 Balance 219 -4770 Result Diagrams: 11/10/18 03:41 11/11/18 05:17 Additional Labs: Laboratory Tests 11/09/18 11/09/18 11/09/18 19:52 19:52 19:52 WBC 11.1 H Creatinine 1.30 H Magnesium 2.0 Troponin I B-Natriuretic Peptide Free T4 TSH 3rd Generation 27.3158 H 11/09/18 11/09/18 11/10/18 19:52 19:52 00:37 WBC Creatinine Magnesium Troponin I 0.010 0.012 B-Natriuretic Peptide 18.5 Free T4 TSH 3rd Generation 11/10/18 11/10/18 11/11/18 03:41 03:41 05:17 WBC Creatinine 1.11 H Magnesium Troponin I 0.014 B-Natriuretic Peptide Free T4 0.78 TSH 3rd Generation Radiology Reviewed by me: Yes (Echo - EF 60-65%, mod-severe LAE) EKG Reviewed by me: Yes (Tele - SR) Phys Exam - Physical Examination Constitutional: NAD + wheezing L>R, diminished in bases S1, S2 Cardiovascular: RRR, no significant murmur, no rub, gallop + obesity Gastrointestinal: soft, non-tender, no distention, positive bowel sounds Musculoskeletal: pulses present, edema present Neurological: normal sensation, moves all 4 limbs Psychiatric: A&O x 3 Skin: normal turgor, cap refill <2 seconds Dx/Plan (1) Atrial fibrillation with RVR Code(s): I48.91 - UNSPECIFIED ATRIAL FIBRILLATION Status: Acute Comment: converted to SR on Cardizem gtt, continue Cardizem 180mg po daily, OAC options for d/c (2) Hypothyroidism Code(s): E03.9 - HYPOTHYROIDISM, UNSPECIFIED Status: Chronic Comment: Uncontrolled, start Levothyroxine (3) Chronic respiratory failure with hypoxia Code(s): J96.11 - CHRONIC RESPIRATORY FAILURE WITH HYPOXIA Status: Chronic Comment: Continue O2 @ baseline home requirements, add Duonebs q4h (4) Morbid obesity Code(s): E66.01 - MORBID (SEVERE) OBESITY DUE TO EXCESS CALORIES Status: Chronic Comment: Dietitian consult, low-fat diet (5) UTI (urinary tract infection) Status: Acute Qualifiers: Urinary tract infection type: acute cystitis Comment: Suspected, start Rocephin 2gm IV daily (6) Diarrhea Code(s): R19.7 - DIARRHEA, UNSPECIFIED Status: Acute Comment: ? infectious, check stool c. diff, stool guaiac, contact precautions pending stool study - Plan continue antibiotics, PT/OT, community mental health social worker, respiratory therapy, DVT proph w/ SCDs Stable overall -: Continue Rocephin -: Continue Diltiazem 180mg daily -: Consider OAC options -: Add Duonebs * PT for mobilizatoin * Rehab/SNF options
[2018-11-11] MEDS ORDERED: Diltiazem HCl SR 60 mg Capsule PO SCH (18:00)
[2018-11-11] MEDS: cefTRIAXone\\ROCEPHIN 2 GM in Sodium Chloride 0.9% 100 ML IVPB SCH (21:12)
[2018-11-11] MEDS: Metoclopramide HCl 10 MG TAB PO SCH (21:13)
[2018-11-12] MEDS: Levothyroxine Sodium 25 MCG TAB PO SCH (05:27)
[2018-11-12] MEDS: Levothyroxine Sodium 112 MCG TAB PO SCH (05:27)
[2018-11-12] MEDS: Acetaminophen/Codeine 30-300mg Tablet PO SCH ×3 (05:27→21:42)
[2018-11-12] MEDS: Enoxaparin Sodium 100 MG/ML SYRINGE SC SCH ×2 (08:24→21:41)
[2018-11-12] MEDS: Enoxaparin Sodium 80 MG/0.8 ML SYRINGE SC SCH ×2 (08:25→21:41)
[2018-11-12] MEDS: Gabapentin 400 MG CAP PO SCH ×3 (08:25→21:41)
[2018-11-12] MEDS: Metoclopramide HCl 10 MG TAB PO SCH ×2 (08:25→21:41)
[2018-11-12] MEDS: Oxybutynin 5 MG TAB PO SCH ×2 (08:27→21:42)
[2018-11-12] MEDS: Nystatin Powder 15 GM BOT TOP SCH ×2 (08:27→21:42)
[2018-11-12] MEDS: Saccharomyces boulardii 250 MG CAP PO SCH (08:28)
--- NOTE | 2018-11-12 08:31 | PDOC.CTH ---
Cardiology Progress Note - Subjective The pt seen and examined. No overnight events. No cardiac complaints. Around 1800 on 11/11/2018, diltiazem was increased from 180mg to 240mg due to several episodes of Afib with RVR. - Objective Vital Signs Temp Pulse Resp BP Pulse Ox 11/12/18 07:33 97.6 F 72 20 137/63 93 L 11/12/18 06:34 91 L 11/12/18 06:31 83 20 11/12/18 03:57 98.5 F 83 16 129/64 95 11/11/18 21:10 99.4 F 78 18 129/70 93 L Weight 423 lb 5 oz 11/11/18 11/12/18 11/13/18 06:59 06:59 06:59 Intake Total 1080 1295 Output Total 5850 1595 Balance -4770 -300 - Physical Examination General/Neuro: alert & oriented x3 Neck: no JVD present Lungs: other: (ex wheezing) Heart: other: (irregular) Abdomen: soft Extremities: other: (no edema) - Telemetry Telemetry Rhythm: SR 70s - Labs Result Diagrams: 11/10/18 03:41 11/11/18 05:17 Troponin/CKMB Troponin I 0.014 ng/mL (< 0.028) 11/10/18 03:41 - Assessment/Plan 1. Afib with RVR - SR with intermittent Afib with RVR since 11/11/2018 with Cardizem 240mg qd. On Lovenox 180mg subq q12hrs from today (the dose was verified by pharmacist) 2. HTN - stable 3. COPD/Asthma with Home O2 4LNC - stable 4. Hypothyroidism - Levothyroxin, which managed by PCP 5. UTI - on IV ABX; managed by PCP 6. Morbid obesity MAR reviewed 7. Diarhea. * Echo on 11/10/2018 showed EF 60-65%, mod-severe dilated LA, mild TR, and trace MR. Pt. seen and eval. by me. I agree with th ee A/Pby the CASH SALES AUDIT CLERK. The diarhea has subsided. Neg. for C.Diff. She feels better. Chest: few expiratory wheezes. RRR at present. Continue present management. She will need OAC on d/c. Suggest Eliquis if she can afford it. 5mg bid. Review of Systems - Review of Systems Constitutional: reports: no symptoms reported EENTM: reports: no symptoms reported Respiratory: reports: no symptoms reported Cardiac (ROS): reports: no symptoms reported ABD/GI: reports: no symptoms reported : reports: no symptoms reported
[2018-11-12] MEDS ORDERED: [UNRECOGNIZED DRUG - OTHER] PO SCH (09:00)
--- NOTE | 2018-11-12 12:39 | PQF ---
CLINICAL DOCUMENTATION IMPROVEMENT CLARIFICATION FORM: ICD-10 Updated PLEASE DO AN ADDENDUM TO THE PROGRESS NOTE WITH ANY DOCUMENTATION UPDATES OR ADDITIONS AND CARRY THROUGH TO DC SUMMARY. THANK YOU. DATE: 11/16/18 ATTN : Nigel TAPIA / DR. NUNEZ Please exercise your independent, professional judgment in responding to the clarification form. Clinical indicators are provided on the bottom of this form for your review Please check appropriate box(s): HEART FAILURE: A. TYPE: [ ] Systolic / HFrEF [X ] Diastolic / HFpEF [ ] Combined Systolic / Diastolic B. ACUITY [ ] Acute [ ] Acute on Chronic [ X] Chronic [ ] Other diagnosis [ ] Unable to determine In addition, please specify: Present on Admission (POA): [X] Yes [ ] No [ ] Unable to determine For continuity of documentation, please document condition throughout progress notes and discharge summary. Thank You. CLINICAL INDICATORS - SIGNS / SYMPTOMS / LABS ER NOTE: "FINDINGS WHICH FAVOR DECOMPENSATED CHF" CONSULTATION REPORT 11/10: "ACUTE CONGESTIVE HEART FAILURE" PROGRESS NOTE 11/12: " ECHO ON 11/10/2018 SHOWED EF 60-65%" RISKS: HTN COPD MORBID OBESITY TREATMENT: TELEMETRY MONITORING ECHOCARDIOGRAM CARDIOLOGY CONSULT (This form is maintained as a part of the permanent medical record) 2014 [employer]. All Rights Reserved DELMY [email or web address] Office: [phone] HOSPITALOscar
--- NOTE | 2018-11-12 16:09 | PDOC.PN ---
- Subjective Encounter Start Date: 11/12/18 Encounter Start Time: 11:40 Subjective: f/u for A-fib RVR now converting to SR on Diltiazem and severe -: deconditioning and fall. Feels better overall. - Objective MAR Reviewed: Yes Vital Signs & Weight: Vital Signs (12 hours) Temp Pulse Pulse Resp BP BP Pulse Ox 11/12/18 15:45 97.6 F 97 18 129/70 94 L 11/12/18 15:17 66 16 11/12/18 11:35 97.5 F L 66 18 129/60 98 11/12/18 11:25 86 16 11/12/18 10:35 85 144/65 H 11/12/18 07:33 97.6 F 72 20 137/63 93 L 11/12/18 06:34 91 L 11/12/18 06:31 83 20 Pulse Ox 11/12/18 15:45 11/12/18 15:17 11/12/18 11:35 11/12/18 11:25 11/12/18 10:35 96 11/12/18 07:33 11/12/18 06:34 11/12/18 06:31 Weight Weight 423 lb 5 oz I&O: 11/11/18 11/12/18 11/13/18 06:59 06:59 06:59 Intake Total 1080 1295 Output Total 5850 1595 Balance -4770 -300 Result Diagrams: 11/10/18 03:41 11/11/18 05:17 Additional Labs: Laboratory Tests 11/09/18 11/09/18 11/09/18 19:52 19:52 19:52 WBC 11.1 H Creatinine 1.30 H Magnesium 2.0 Troponin I B-Natriuretic Peptide Free T4 TSH 3rd Generation 27.3158 H 11/09/18 11/09/18 11/10/18 19:52 19:52 00:37 WBC Creatinine Magnesium Troponin I 0.010 0.012 B-Natriuretic Peptide 18.5 Free T4 TSH 3rd Generation 11/10/18 11/10/18 11/11/18 03:41 03:41 05:17 WBC Creatinine 1.11 H Magnesium Troponin I 0.014 B-Natriuretic Peptide Free T4 0.78 TSH 3rd Generation Microbiology 11/11/18 10:20 Stool Stool Occult Blood (DEANNE) - Final 11/11/18 10:20 Stool C. difficile GDH Antigen & Toxins - Final Laboratory Tests 11/09/18 11/09/18 11/09/18 19:52 19:52 19:52 WBC 11.1 H Creatinine 1.30 H Magnesium 2.0 Troponin I B-Natriuretic Peptide Free T4 TSH 3rd Generation 27.3158 H 11/09/18 11/09/18 11/10/18 19:52 19:52 00:37 WBC Creatinine Magnesium Troponin I 0.010 0.012 B-Natriuretic Peptide 18.5 Free T4 TSH 3rd Generation 11/10/18 11/10/18 11/11/18 03:41 03:41 05:17 WBC Creatinine 1.11 H Magnesium Troponin I 0.014 B-Natriuretic Peptide Free T4 0.78 TSH 3rd Generation EKG Reviewed by me: Yes (Tele - SR in 60's) Phys Exam - Physical Examination Constitutional: NAD HEENT: PERRLA, sclera anicteric, oral pharynx no lesions Neck: no nodes, no JVD, supple, full ROM diminished in bases Respiratory: no wheezing S1, S2 Cardiovascular: RRR, no significant murmur, no rub, gallop obese Gastrointestinal: soft, non-tender, no distention, positive bowel sounds Musculoskeletal: pulses present, edema present Neurological: normal sensation, moves all 4 limbs Psychiatric: A&O x 3 Skin: normal turgor, cap refill <2 seconds Dx/Plan (1) Atrial fibrillation with RVR Code(s): I48.91 - UNSPECIFIED ATRIAL FIBRILLATION Status: Acute Comment: converted to SR on Cardizem gtt, continue Cardizem 240mg po daily, OAC options for d/c (2) Hypothyroidism Code(s): E03.9 - HYPOTHYROIDISM, UNSPECIFIED Status: Chronic Comment: Uncontrolled, start Levothyroxine (3) Chronic respiratory failure with hypoxia Code(s): J96.11 - CHRONIC RESPIRATORY FAILURE WITH HYPOXIA Status: Chronic Comment: Continue O2 @ baseline home requirements, add Duonebs q4h (4) Morbid obesity Code(s): E66.01 - MORBID (SEVERE) OBESITY DUE TO EXCESS CALORIES Status: Chronic Comment: Dietitian consult, low-fat diet (5) UTI (urinary tract infection) Status: Acute Qualifiers: Urinary tract infection type: acute cystitis Comment: Suspected, continue Rocephin 2gm IV daily (6) Diarrhea Code(s): R19.7 - DIARRHEA, UNSPECIFIED Status: Acute Comment: ? infectious, check stool c. diff, stool guaiac, contact precautions pending stool study - Plan continue antibiotics, PT/OT, geriatric social work professor, out of bed/ambulate Stable currently -: Continue Rocephin -: PT for mobilization -: Continue Diltiazem 240mg po daily -: Continue Florastor * CM for SNF options * Continue Lovenox SC BID, consider OAC options prior to d/c
[2018-11-12] MEDS: cefTRIAXone\\ROCEPHIN 2 GM in Sodium Chloride 0.9% 100 ML IVPB SCH (21:41)
[2018-11-13] MEDS: Levothyroxine Sodium 112 MCG TAB PO SCH (05:49)
[2018-11-13] MEDS: Levothyroxine Sodium 25 MCG TAB PO SCH (05:49)
[2018-11-13] MEDS: Acetaminophen/Codeine 30-300mg Tablet PO SCH ×3 (05:49→21:51)
[2018-11-13] MEDS: Enoxaparin Sodium 80 MG/0.8 ML SYRINGE SC SCH (08:52)
[2018-11-13] MEDS: Enoxaparin Sodium 100 MG/ML SYRINGE SC SCH (08:53)
[2018-11-13] MEDS: Metoclopramide HCl 10 MG TAB PO SCH ×2 (08:53→21:53)
[2018-11-13] MEDS: Gabapentin 400 MG CAP PO SCH ×3 (08:53→21:53)
[2018-11-13] MEDS: Oxybutynin 5 MG TAB PO SCH ×2 (08:53→21:53)
[2018-11-13] MEDS: Saccharomyces boulardii 250 MG CAP PO SCH (08:53)
[2018-11-13] MEDS: Nystatin Powder 15 GM BOT TOP SCH ×2 (08:55→21:53)
--- NOTE | 2018-11-13 11:27 | PDOC.CTH ---
Cardiology Progress Note - Subjective No cardiac complaints. C/O wanting trazadone back at night. Feels shaky. - Objective Vital Signs Temp Pulse Resp BP Pulse Ox 11/13/18 08:53 68 11/13/18 07:50 97.8 F 68 20 138/77 97 11/13/18 07:45 97 11/13/18 07:42 68 16 11/13/18 04:00 98.0 F 68 20 128/69 92 L Weight 423 lb 5 oz 11/12/18 11/13/18 11/14/18 06:59 06:59 06:59 Intake Total 1295 1830 240 Output Total 1595 1850 Balance -300 -20 240 - Physical Examination General/Neuro: alert & oriented x3 Neck: no JVD present Lungs: CTA Heart: RRR Abdomen: NT/ND Extremities: other: (no edema) - Telemetry Telemetry Rhythm: SR - Labs Result Diagrams: 11/10/18 03:41 11/11/18 05:17 Troponin/CKMB Troponin I 0.014 ng/mL (< 0.028) 11/10/18 03:41 - Assessment/Plan 1. Afib with RVR 2. HTN 3. COPD/Asthma 4. Hypothyroidism 5. UTI 6. Morbid obesity Stable on current therapy. Rhythm remains SR for the last 48 hours. Will stop Lovenox. Add Eliquis 5mg BID. Continue antibiotics for UTI per primary team. Hopefully home soon. Pt seen and examined. Agree with above. No other changes
--- NOTE | 2018-11-13 16:41 | PDOC.PN ---
- Subjective Encounter Start Date: 11/13/18 Encounter Start Time: 16:30 Subjective: f/u for gen weakness, fall, A-fib RVR now in SR. Feels depressed and -: anxious about having to go to SNF before transitioning home. No CP, -: SOB. - Objective MAR Reviewed: Yes Vital Signs & Weight: Vital Signs (12 hours) Temp Pulse Resp BP Pulse Ox 11/13/18 14:59 73 16 11/13/18 12:55 98.3 F 80 18 127/59 L 93 L 11/13/18 11:29 83 16 11/13/18 08:53 68 11/13/18 07:50 97.8 F 68 20 138/77 97 11/13/18 07:45 97 11/13/18 07:42 68 16 Weight Weight 423 lb 5 oz I&O: 11/12/18 11/13/18 11/14/18 06:59 06:59 06:59 Intake Total 1295 1830 480 Output Total 1595 1850 Balance -300 -20 480 Result Diagrams: 11/10/18 03:41 11/11/18 05:17 Additional Labs: Microbiology 11/11/18 10:20 Stool Stool Occult Blood (DEANNE) - Final 11/11/18 10:20 Stool C. difficile GDH Antigen & Toxins - Final Laboratory Tests 11/09/18 11/09/18 11/09/18 19:52 19:52 19:52 WBC 11.1 H Creatinine 1.30 H Magnesium 2.0 Troponin I B-Natriuretic Peptide Free T4 TSH 3rd Generation 27.3158 H 11/09/18 11/09/18 11/10/18 19:52 19:52 00:37 WBC Creatinine Magnesium Troponin I 0.010 0.012 B-Natriuretic Peptide 18.5 Free T4 TSH 3rd Generation 11/10/18 11/10/18 11/11/18 03:41 03:41 05:17 WBC Creatinine 1.11 H Magnesium Troponin I 0.014 B-Natriuretic Peptide Free T4 0.78 TSH 3rd Generation EKG Reviewed by me: Yes (Tele - SR) Phys Exam - Physical Examination Constitutional: NAD HEENT: PERRLA, sclera anicteric, oral pharynx no lesions Neck: no nodes, no JVD, supple, full ROM diminished in bases Respiratory: no wheezing, no rhonchi S1, S2 Cardiovascular: RRR, no significant murmur, no rub, gallop Obese Gastrointestinal: soft, non-tender, no distention, positive bowel sounds Musculoskeletal: pulses present, edema present Neurological: normal sensation, moves all 4 limbs Psychiatric: A&O x 3 Skin: normal turgor, cap refill <2 seconds Dx/Plan (1) Atrial fibrillation with RVR Code(s): I48.91 - UNSPECIFIED ATRIAL FIBRILLATION Status: Acute Comment: converted to SR on Cardizem gtt, continue Cardizem 240mg po daily, Eliquis 5mg BID (2) Hypothyroidism Code(s): E03.9 - HYPOTHYROIDISM, UNSPECIFIED Status: Chronic Comment: Uncontrolled, start Levothyroxine (3) Chronic respiratory failure with hypoxia Code(s): J96.11 - CHRONIC RESPIRATORY FAILURE WITH HYPOXIA Status: Chronic Comment: Continue O2 @ baseline home requirements, add Duonebs q4h (4) Morbid obesity Code(s): E66.01 - MORBID (SEVERE) OBESITY DUE TO EXCESS CALORIES Status: Chronic Comment: Dietitian consult, low-fat diet (5) UTI (urinary tract infection) Status: Acute Qualifiers: Urinary tract infection type: acute cystitis Comment: Suspected, continue Rocephin 2gm IV daily another 24h then convert to po option (6) Diarrhea Code(s): R19.7 - DIARRHEA, UNSPECIFIED Status: Acute Comment: ? infectious, check stool c. diff, stool guaiac neg, resolving - Plan continue antibiotics, PT/OT, group social worker, out of bed/ambulate, DVT proph w/ SCDs Stable overall -: Continue Rocephin another 24h -: Resume Trazodone -: OOB/ambulate with PT -: Continue Diltiazem * continue Florastor * SNF options pending
[2018-11-13 18:18] LABS: Platelet Count 314 thou/uL (130-400)
[2018-11-13] MEDS ORDERED: Non-Formulary Item 1 EACH (Trazodone Hcl [Trazodone Hcl] 100 MG) PO SCH (21:00)
[2018-11-13] MEDS: Apixaban 5 MG TAB PO SCH (21:52)
[2018-11-13] MEDS: cefTRIAXone\\ROCEPHIN 2 GM in Sodium Chloride 0.9% 100 ML IVPB SCH (21:52)
[2018-11-13] MEDS: traZODone HCl 50 MG TAB PO SCH (21:54)
[2018-11-14] MEDS: Levothyroxine Sodium 112 MCG TAB PO SCH (06:07)
[2018-11-14] MEDS: Acetaminophen/Codeine 30-300mg Tablet PO SCH ×3 (06:07→21:27)
[2018-11-14] MEDS: Levothyroxine Sodium 25 MCG TAB PO SCH (06:07)
[2018-11-14] MEDS: Apixaban 5 MG TAB PO SCH ×2 (10:12→20:25)
[2018-11-14] MEDS: Saccharomyces boulardii 250 MG CAP PO SCH (10:13)
[2018-11-14] MEDS: Gabapentin 400 MG CAP PO SCH ×3 (10:13→20:25)
[2018-11-14] MEDS: Metoclopramide HCl 10 MG TAB PO SCH ×2 (10:13→20:25)
[2018-11-14] MEDS: Oxybutynin 5 MG TAB PO SCH ×2 (10:13→20:24)
[2018-11-14] MEDS: Nystatin Powder 15 GM BOT TOP SCH ×2 (10:14→20:30)
--- NOTE | 2018-11-14 11:51 | PDOC.CTH ---
Cardiology Progress Note - Subjective No overnight events. remains in NSR. - Objective Vital Signs Temp Pulse Resp BP Pulse Ox 11/14/18 11:21 79 16 11/14/18 10:12 62 11/14/18 07:30 98.9 F 60 18 118/57 L 95 11/14/18 06:56 95 11/14/18 06:54 62 16 11/14/18 03:18 97.7 F 69 18 127/63 92 L Weight 427 lb 3.2 oz 11/13/18 11/14/18 11/15/18 06:59 06:59 06:59 Intake Total 1830 1320 Output Total 1850 950 Balance -20 370 - Physical Examination General/Neuro: alert & oriented x3 Neck: no JVD present Lungs: CTA Heart: RRR Abdomen: NT/ND - Telemetry Telemetry Rhythm: SR - Labs Result Diagrams: 11/13/18 17:55 11/13/18 17:55 Troponin/CKMB Troponin I 0.014 ng/mL (< 0.028) 11/10/18 03:41 - Assessment/Plan 1. Afib with RVR 2. HTN 3. COPD/Asthma 4. Hypothyroidism 5. UTI 6. Morbid obesity Remains in NSR. Vitals stable. on Eliquis. Ok for discharge to SNF at any time.
--- NOTE | 2018-11-14 15:37 | PDOC.PN ---
- Subjective Encounter Start Date: 11/14/18 Encounter Start Time: 15:35 Subjective: f/u for A-fib RVR currently in SR on Cardizem 240mg daily and Eliquis. -: Feels ok overall. - Objective MAR Reviewed: Yes Vital Signs & Weight: Vital Signs (12 hours) Temp Pulse Resp BP Pulse Ox 11/14/18 12:00 99.2 F 70 20 123/62 94 L 11/14/18 11:21 79 16 11/14/18 10:12 62 11/14/18 07:30 98.9 F 60 18 118/57 L 95 11/14/18 06:56 95 11/14/18 06:54 62 16 Weight Weight 427 lb 3.2 oz I&O: 11/13/18 11/14/18 11/15/18 06:59 06:59 06:59 Intake Total 1830 1320 Output Total 1850 950 Balance -20 370 Result Diagrams: 11/13/18 17:55 11/13/18 17:55 Additional Labs: Microbiology 11/11/18 10:20 Stool Stool Occult Blood (DEANNE) - Final 11/11/18 10:20 Stool C. difficile GDH Antigen & Toxins - Final Laboratory Tests 11/09/18 11/09/18 11/09/18 19:52 19:52 19:52 WBC 11.1 H Creatinine 1.30 H Magnesium 2.0 Troponin I B-Natriuretic Peptide Free T4 TSH 3rd Generation 27.3158 H 11/09/18 11/09/18 11/10/18 19:52 19:52 00:37 WBC Creatinine Magnesium Troponin I 0.010 0.012 B-Natriuretic Peptide 18.5 Free T4 TSH 3rd Generation 11/10/18 11/10/18 11/11/18 03:41 03:41 05:17 WBC Creatinine 1.11 H Magnesium Troponin I 0.014 B-Natriuretic Peptide Free T4 0.78 TSH 3rd Generation EKG Reviewed by me: Yes (Tele - SR) Phys Exam - Physical Examination Constitutional: NAD HEENT: PERRLA, sclera anicteric, oral pharynx no lesions Neck: no nodes, no JVD, supple, full ROM diminished in bases S1, S2 Cardiovascular: RRR, no significant murmur, no rub, gallop obese Gastrointestinal: soft, non-tender, no distention, positive bowel sounds Musculoskeletal: pulses present, edema present Neurological: normal sensation, moves all 4 limbs Psychiatric: A&O x 3 Skin: normal turgor, cap refill <2 seconds Dx/Plan (1) Atrial fibrillation with RVR Code(s): I48.91 - UNSPECIFIED ATRIAL FIBRILLATION Status: Acute Comment: converted to SR on Cardizem gtt, continue Cardizem 240mg po daily, Eliquis 5mg BID, rate controlled (2) Hypothyroidism Code(s): E03.9 - HYPOTHYROIDISM, UNSPECIFIED Status: Chronic Comment: Uncontrolled, start Levothyroxine 137mcg daily (3) Chronic respiratory failure with hypoxia Code(s): J96.11 - CHRONIC RESPIRATORY FAILURE WITH HYPOXIA Status: Chronic Comment: Continue O2 @ baseline home requirements, add Duonebs q4h (4) Morbid obesity Code(s): E66.01 - MORBID (SEVERE) OBESITY DUE TO EXCESS CALORIES Status: Chronic Comment: Dietitian consult, low-fat diet (5) UTI (urinary tract infection) Status: Acute Qualifiers: Urinary tract infection type: acute cystitis Comment: Suspected, continue Rocephin 2gm IV daily another 24h then convert to po option (6) Diarrhea Code(s): R19.7 - DIARRHEA, UNSPECIFIED Status: Acute Comment: ? infectious, check stool c. diff, stool guaiac neg, resolving - Plan continue antibiotics, PT/OT, psychiatric social worker, respiratory therapy, out of bed/ ambulate, DVT proph w/SCDs Stable currently -: Continue Diltiazem 240mg daily -: Continue Eliquis -: OOB with PT -: SNF options pending * D/C rocephin * Start Omnicef 300mg BID
[2018-11-14] MEDS: traZODone HCl 50 MG TAB PO SCH (20:25)
[2018-11-14] MEDS: Cefdinir 300 MG CAP PO SCH (20:25)
[2018-11-15] MEDS ORDERED: hydrALAZINE 20 MG/ML VIAL SLOW IVP PRN (04:37)
[2018-11-15] MEDS: Acetaminophen/Codeine 30-300mg Tablet PO SCH ×3 (05:39→21:29)
[2018-11-15] MEDS: Levothyroxine Sodium 112 MCG TAB PO SCH (05:40)
[2018-11-15] MEDS: Levothyroxine Sodium 25 MCG TAB PO SCH (05:40)
[2018-11-15] MEDS: Metoclopramide HCl 10 MG TAB PO SCH ×2 (08:42→21:30)
[2018-11-15] MEDS: Oxybutynin 5 MG TAB PO SCH ×2 (08:42→21:29)
[2018-11-15] MEDS: Apixaban 5 MG TAB PO SCH ×2 (08:43→21:29)
[2018-11-15] MEDS: Gabapentin 400 MG CAP PO SCH ×2 (08:43→14:09)
[2018-11-15] MEDS: Saccharomyces boulardii 250 MG CAP PO SCH (08:43)
[2018-11-15] MEDS: Cefdinir 300 MG CAP PO SCH ×2 (08:43→21:29)
[2018-11-15] MEDS: Nystatin Powder 15 GM BOT TOP SCH ×2 (08:44→21:30)
--- NOTE | 2018-11-15 09:04 | PDOC.CTH ---
Cardiology Progress Note - Subjective The pt seen and examined. No overnight events. No cardiac complaints. - Objective Vital Signs Temp Pulse Resp BP Pulse Ox 11/15/18 08:43 62 11/15/18 07:47 94 L 11/15/18 07:45 62 16 94 L 11/15/18 07:26 97.7 F 60 16 121/64 92 L 11/15/18 04:45 158/74 H 11/15/18 03:32 97.7 F 64 20 178/77 H 97 Weight 432 lb 8.751 oz 11/14/18 11/15/18 11/16/18 06:59 06:59 06:59 Intake Total 1320 2180 Output Total 950 1625 Balance 370 555 - Physical Examination General/Neuro: alert & oriented x3 Neck: no JVD present Lungs: other: (mild ex. wheezing) Heart: RRR Abdomen: soft Extremities: other: (No edema) - Telemetry Telemetry Rhythm: SR 60s - Labs Result Diagrams: 11/15/18 16:53 11/15/18 16:53 Troponin/CKMB Troponin I 0.014 ng/mL (< 0.028) 11/10/18 03:41 - Assessment/Plan 1. Afib with RVR - Remains in SR during this weekend with Cardizem 240mg qd and Eliquis 5mg BID. 2. HTN - stable 3. COPD/Asthma with Home O2 4LNC - stable 4. Hypothyroidism - Levothyroxin, which managed by PCP 5. UTI - on ABX PO; managed by PCP 6. Morbid obesity 7. Diarhea - resolved MAR reviewed * Echo on 11/10/2018 showed EF 60-65%, mod-severe dilated LA, mild TR, and trace MR. pt. seen and eval. by me. I agree with the A/P by the [facility]. She is maintaining NSR. Chest clear. RRR. No edema. Review of Systems - Review of Systems Constitutional: reports: no symptoms reported EENTM: reports: no symptoms reported Respiratory: reports: no symptoms reported Cardiac (ROS): reports: no symptoms reported ABD/GI: reports: no symptoms reported : reports: no symptoms reported Musculoskeletal: reports: no symptoms reported
[2018-11-15 17:17] LABS: Hemoglobin 12.1 g/dL (12.0-16.0); Platelet Count 313 thou/uL (130-400)
--- NOTE | 2018-11-15 18:55 | PDOC.PN ---
- Subjective Encounter Start Date: 11/15/18 Encounter Start Time: 18:25 Subjective: f/u for A-fib RVR, deconditioning and UTI on Omnicef. Feels ok -: overall. Awaiting SNF transfer. - Objective MAR Reviewed: Yes Vital Signs & Weight: Vital Signs (12 hours) Temp Pulse Resp BP Pulse Ox 11/15/18 18:11 65 20 95 11/15/18 15:43 97.8 F 72 16 131/65 94 L 11/15/18 14:51 72 20 93 L 11/15/18 12:05 97.7 F 64 16 132/62 93 L 11/15/18 10:52 65 20 91 L 11/15/18 08:43 62 11/15/18 07:47 94 L 11/15/18 07:45 62 16 94 L 11/15/18 07:26 97.7 F 60 16 121/64 92 L Weight Weight 432 lb 8.751 oz I&O: 11/14/18 11/15/18 11/16/18 06:59 06:59 06:59 Intake Total 1320 2180 1200 Output Total 950 1625 1250 Balance 370 555 -50 Result Diagrams: 11/15/18 16:53 11/15/18 16:53 Additional Labs: Microbiology 11/11/18 10:20 Stool Stool Occult Blood (DEANNE) - Final 11/11/18 10:20 Stool C. difficile GDH Antigen & Toxins - Final Laboratory Tests 11/09/18 11/09/18 11/09/18 19:52 19:52 19:52 WBC 11.1 H Creatinine 1.30 H Magnesium 2.0 Troponin I B-Natriuretic Peptide Free T4 TSH 3rd Generation 27.3158 H 11/09/18 11/09/18 11/10/18 19:52 19:52 00:37 WBC Creatinine Magnesium Troponin I 0.010 0.012 B-Natriuretic Peptide 18.5 Free T4 TSH 3rd Generation 11/10/18 11/10/18 11/11/18 03:41 03:41 05:17 WBC Creatinine 1.11 H Magnesium Troponin I 0.014 B-Natriuretic Peptide Free T4 0.78 TSH 3rd Generation EKG Reviewed by me: Yes (Tele - SR) Phys Exam - Physical Examination Constitutional: NAD HEENT: PERRLA, sclera anicteric, oral pharynx no lesions Neck: no nodes, no JVD, supple, full ROM diminished in bases Respiratory: no wheezing, no rales, no rhonchi, clear to auscultation bilateral S1, S2 Cardiovascular: RRR, no significant murmur, no rub, gallop obese Gastrointestinal: soft, non-tender, no distention, positive bowel sounds Musculoskeletal: pulses present, edema present Neurological: normal sensation, moves all 4 limbs Psychiatric: A&O x 3 Skin: normal turgor, cap refill <2 seconds Dx/Plan (1) Atrial fibrillation with RVR Code(s): I48.91 - UNSPECIFIED ATRIAL FIBRILLATION Status: Acute Comment: Converted to SR on Cardizem gtt, continue Cardizem 240mg po daily, Eliquis 5mg BID, rate controlled currently (2) Hypothyroidism Code(s): E03.9 - HYPOTHYROIDISM, UNSPECIFIED Status: Chronic Comment: Uncontrolled, start Levothyroxine 137mcg daily (3) Chronic respiratory failure with hypoxia Code(s): J96.11 - CHRONIC RESPIRATORY FAILURE WITH HYPOXIA Status: Chronic Comment: Continue O2 @ baseline home requirements, add Duonebs q4h (4) Morbid obesity Code(s): E66.01 - MORBID (SEVERE) OBESITY DUE TO EXCESS CALORIES Status: Chronic Comment: Dietitian consult, low-fat diet, SNF pending (5) UTI (urinary tract infection) Status: Acute Qualifiers: Urinary tract infection type: acute cystitis Comment: Suspected, continue Omnicef 300mg BID (6) Diarrhea Code(s): R19.7 - DIARRHEA, UNSPECIFIED Status: Acute Comment: ? infectious, check stool c. diff, stool guaiac neg, resolving (7) Physical deconditioning Code(s): R53.81 - OTHER MALAISE Status: Chronic Comment: PT/OT with SNF pending - Plan crowley catheter, continue antibiotics, PT/OT, social insurance administrator, respiratory therapy, out of bed/ambulate, DVT proph w/SCDs Stable currently -: Continue Omnicef -: SNF transfer likely in am -: Continue Eliquis -: Continue Diltiazem 240mg daily * D/C to SNF in am 11/16/18
[2018-11-16] MEDS: Gabapentin 400 MG CAP PO SCH ×3 (00:48→14:29)
[2018-11-16] MEDS: traZODone HCl 50 MG TAB PO SCH (00:49)
[2018-11-16] MEDS: Acetaminophen/Codeine 30-300mg Tablet PO SCH ×3 (05:52→20:35)
[2018-11-16] MEDS: Levothyroxine Sodium 25 MCG TAB PO SCH (05:52)
[2018-11-16] MEDS: Levothyroxine Sodium 112 MCG TAB PO SCH (05:52)
[2018-11-16] MEDS: Oxybutynin 5 MG TAB PO SCH ×2 (09:09→20:35)
[2018-11-16] MEDS: Apixaban 5 MG TAB PO SCH ×2 (09:09→20:35)
[2018-11-16] MEDS: Saccharomyces boulardii 250 MG CAP PO SCH (09:09)
[2018-11-16] MEDS: Metoclopramide HCl 10 MG TAB PO SCH ×2 (09:10→20:35)
[2018-11-16] MEDS: Cefdinir 300 MG CAP PO SCH ×2 (09:10→20:35)
[2018-11-16] MEDS: Nystatin Powder 15 GM BOT TOP SCH (10:23)
--- NOTE | 2018-11-16 10:41 | PDOC.CTH ---
Cardiology Progress Note - Objective Vital Signs Temp Pulse Resp BP Pulse Ox 11/16/18 10:31 62 20 95 11/16/18 09:09 77 11/16/18 07:50 98.0 F 77 19 124/74 92 L 11/16/18 06:42 74 20 92 L 11/16/18 04:00 98.1 F 67 20 148/69 H 93 L Weight 433 lb 11/15/18 11/16/18 11/17/18 06:59 06:59 06:59 Intake Total 2180 1200 Output Total 1625 1650 Balance 555 -450 - Physical Examination General/Neuro: alert & oriented x3 Neck: no JVD present Lungs: CTA Heart: RRR Abdomen: NT/ND, soft - Labs Result Diagrams: 11/15/18 16:53 11/15/18 16:53 Troponin/CKMB Troponin I 0.014 ng/mL (< 0.028) 11/10/18 03:41 - Assessment/Plan 1. Afib with RVR - Remains in SR From a cardiac standpoint she is stable to transfer to rehab. with Cardizem 240mg qd and Eliquis 5mg BID. 2. HTN - stable 3. COPD/Asthma with Home O2 4LNC - stable 4. Hypothyroidism - Levothyroxin, which managed by PCP 5. UTI - on ABX PO; managed by PCP 6. Morbid obesity 7. Diarhea - resolved MAR reviewed * Echo on 11/10/2018 showed EF 60-65%, mod-severe dilated LA, mild TR, and trace MR. From a cardiac standpoint she is stable for transfer to rehab.
--- NOTE | 2018-11-16 15:46 | PDOC.PN ---
- Subjective Encounter Start Date: 11/16/18 Encounter Start Time: 12:30 Doing generally well. Says she has her usual aches and pains, but otherwise at baseline. - Objective Vital Signs & Weight: Vital Signs (12 hours) Temp Pulse Pulse Resp BP BP Pulse Ox 11/16/18 14:17 63 20 93 L 11/16/18 11:30 98.4 F 70 22 H 124/69 92 L 11/16/18 11:23 70 124/69 11/16/18 10:31 62 20 95 11/16/18 09:09 77 11/16/18 07:50 98.0 F 77 19 124/74 92 L 11/16/18 06:42 74 20 92 L 11/16/18 04:00 98.1 F 67 20 148/69 H 93 L Pulse Ox 11/16/18 14:17 11/16/18 11:30 11/16/18 11:23 96 11/16/18 10:31 11/16/18 09:09 11/16/18 07:50 11/16/18 06:42 11/16/18 04:00 Weight Weight 433 lb I&O: 11/15/18 11/16/18 11/17/18 06:59 06:59 06:59 Intake Total 2180 1200 Output Total 1625 1650 Balance 555 -450 Result Diagrams: 11/15/18 16:53 11/15/18 16:53 Phys Exam - Physical Examination Constitutional: NAD Respiratory: no wheezing, no rales, no rhonchi, clear to auscultation bilateral Cardiovascular: RRR, no significant murmur, no rub Gastrointestinal: soft, non-tender, no distention, positive bowel sounds Musculoskeletal: no edema Neurological: non-focal Psychiatric: normal affect, A&O x 3 Dx/Plan (1) Atrial fibrillation with RVR Code(s): I48.91 - UNSPECIFIED ATRIAL FIBRILLATION Status: Acute Comment: Converted to SR on Cardizem gtt, continue Cardizem 240mg po daily, Eliquis 5mg BID, rate controlled currently (2) Diarrhea Code(s): R19.7 - DIARRHEA, UNSPECIFIED Status: Acute Comment: ? infectious, check stool c. diff, stool guaiac neg, resolving (3) UTI (urinary tract infection) Status: Acute Qualifiers: Urinary tract infection type: acute cystitis Comment: Suspected, continue Omnicef 300mg BID (4) Chronic respiratory failure with hypoxia Code(s): J96.11 - CHRONIC RESPIRATORY FAILURE WITH HYPOXIA Status: Chronic Comment: Continue O2 @ baseline home requirements, add Duonebs q4h (5) Hypothyroidism Code(s): E03.9 - HYPOTHYROIDISM, UNSPECIFIED Status: Chronic Comment: Uncontrolled, start Levothyroxine 137mcg daily (6) Morbid obesity Code(s): E66.01 - MORBID (SEVERE) OBESITY DUE TO EXCESS CALORIES Status: Chronic Comment: Dietitian consult, low-fat diet, SNF pending (7) Physical deconditioning Code(s): R53.81 - OTHER MALAISE Status: Chronic Comment: PT/OT with SNF pending (8) Acute encephalopathy Code(s): G93.40 - ENCEPHALOPATHY, UNSPECIFIED Status: Acute - Plan * Continue Diltiazem. * Continue Omnicef. * Rehab pending insurance approval. * Continue Eliquis. * Home oxygen...chronic.
[2018-11-17] MEDS: Gabapentin 400 MG CAP PO SCH ×4 (00:27→21:46)
[2018-11-17] MEDS: traZODone HCl 50 MG TAB PO SCH ×2 (00:27→21:46)
[2018-11-17] MEDS: Nystatin Powder 15 GM BOT TOP SCH ×3 (00:27→21:46)
[2018-11-17] MEDS: Acetaminophen/Codeine 30-300mg Tablet PO SCH ×2 (05:59→15:03)
[2018-11-17] MEDS: Levothyroxine Sodium 25 MCG TAB PO SCH (05:59)
[2018-11-17] MEDS: Levothyroxine Sodium 112 MCG TAB PO SCH (05:59)
--- NOTE | 2018-11-17 09:12 | PDOC.CTH ---
Cardiology Progress Note - Subjective The pt seen and examined. No overnight events. No cardiac complaints. She is waiting for SNF placement. - Objective Vital Signs Temp Pulse Resp BP Pulse Ox 11/17/18 06:38 70 16 94 L 11/17/18 04:00 98.0 F 72 20 136/72 93 L Weight 433 lb 11/16/18 11/17/18 11/18/18 06:59 06:59 06:59 Intake Total 1200 1530 Output Total 1650 2400 Balance -450 -870 - Physical Examination General/Neuro: alert & oriented x3 Neck: no JVD present Lungs: other: (very diminished at bases) Heart: RRR Abdomen: soft Extremities: other: (No edema) - Telemetry Telemetry Rhythm: SR 70s - Labs Result Diagrams: 11/15/18 16:53 11/15/18 16:53 Troponin/CKMB Troponin I 0.014 ng/mL (< 0.028) 11/10/18 03:41 - Assessment/Plan 1. Afib with RVR - Remains in SR with Cardizem 240mg qd and Eliquis 5mg BID. 2. HTN - stable 3. COPD/Asthma with Home O2 4LNC - stable 4. Hypothyroidism - Levothyroxin, which managed by PCP 5. UTI - on ABX PO; managed by PCP 6. Morbid obesity 7. Diarhea - resolved MAR reviewed * Echo on 11/10/2018 showed EF 60-65%, mod-severe dilated LA, mild TR, and trace MR. From a cardiac standpoint she is stable for transfer to rehab. Review of Systems - Review of Systems Constitutional: reports: no symptoms reported EENTM: reports: no symptoms reported Respiratory: reports: no symptoms reported Cardiac (ROS): reports: no symptoms reported ABD/GI: reports: no symptoms reported : reports: no symptoms reported Musculoskeletal: reports: no symptoms reported
[2018-11-17] MEDS: Oxybutynin 5 MG TAB PO SCH ×2 (09:40→20:28)
[2018-11-17] MEDS: Apixaban 5 MG TAB PO SCH ×2 (09:40→20:28)
[2018-11-17] MEDS: Saccharomyces boulardii 250 MG CAP PO SCH (09:41)
[2018-11-17] MEDS: Metoclopramide HCl 10 MG TAB PO SCH ×2 (09:42→20:28)
[2018-11-17] MEDS: Cefdinir 300 MG CAP PO SCH ×2 (09:43→20:28)
[2018-11-17 17:40] LABS: Hemoglobin 11.9 g/dL (12.0-16.0); Platelet Count 308 thou/uL (130-400)
--- NOTE | 2018-11-17 21:13 | PDOC.PN ---
- Subjective Encounter Start Date: 11/17/18 Encounter Start Time: 08:40 Doing well. No new complaints. - Objective Vital Signs & Weight: Vital Signs (12 hours) Temp Pulse Resp BP BP Pulse Ox 11/17/18 19:35 99.5 F 68 16 128/68 93 L 11/17/18 18:25 70 18 94 L 11/17/18 16:05 98.0 F 54 L 20 131/64 93 L 11/17/18 14:06 69 20 95 11/17/18 12:08 97.7 F 69 20 139/71 11/17/18 10:34 62 20 94 L 11/17/18 09:41 69 118/72 11/17/18 09:26 92 L 11/17/18 09:25 97.2 F L 69 20 118/72 92 L Weight Weight 433 lb I&O: 11/16/18 11/17/18 11/18/18 06:59 06:59 06:59 Intake Total 1200 1530 1370 Output Total 1650 2400 1675 Balance -450 -870 -305 Result Diagrams: 11/17/18 17:31 11/17/18 17:31 Phys Exam - Physical Examination Constitutional: NAD morbidly obese Respiratory: no wheezing, no rales, no rhonchi Cardiovascular: RRR, no significant murmur Gastrointestinal: soft, non-tender, no distention Musculoskeletal: no edema Dx/Plan (1) Atrial fibrillation with RVR Code(s): I48.91 - UNSPECIFIED ATRIAL FIBRILLATION Status: Acute Comment: Converted to SR on Cardizem gtt, continue Cardizem 240mg po daily, Eliquis 5mg BID, rate controlled currently (2) Diarrhea Code(s): R19.7 - DIARRHEA, UNSPECIFIED Status: Acute Comment: ? infectious, check stool c. diff, stool guaiac neg, resolving (3) UTI (urinary tract infection) Status: Acute Qualifiers: Urinary tract infection type: acute cystitis Comment: Suspected, continue Omnicef 300mg BID (4) Chronic respiratory failure with hypoxia Code(s): J96.11 - CHRONIC RESPIRATORY FAILURE WITH HYPOXIA Status: Chronic Comment: Continue O2 @ baseline home requirements, add Duonebs q4h (5) Hypothyroidism Code(s): E03.9 - HYPOTHYROIDISM, UNSPECIFIED Status: Chronic Comment: Uncontrolled, start Levothyroxine 137mcg daily (6) Morbid obesity Code(s): E66.01 - MORBID (SEVERE) OBESITY DUE TO EXCESS CALORIES Status: Chronic Comment: Dietitian consult, low-fat diet, SNF pending (7) Physical deconditioning Code(s): R53.81 - OTHER MALAISE Status: Chronic Comment: PT/OT with SNF pending (8) Acute encephalopathy Code(s): G93.40 - ENCEPHALOPATHY, UNSPECIFIED Status: Resolved - Plan * Stable. * Awaiting placement.
[2018-11-18] MEDS: Acetaminophen/Codeine 30-300mg Tablet PO SCH ×2 (00:37→06:38)
[2018-11-18] MEDS: Levothyroxine Sodium 25 MCG TAB PO SCH (05:17)
[2018-11-18] MEDS: Levothyroxine Sodium 112 MCG TAB PO SCH (05:17)
[2018-11-18] MEDS: Apixaban 5 MG TAB PO SCH (09:20)
[2018-11-18] MEDS: Cefdinir 300 MG CAP PO SCH (09:20)
[2018-11-18] MEDS: Gabapentin 400 MG CAP PO SCH (09:20)
[2018-11-18] MEDS: Saccharomyces boulardii 250 MG CAP PO SCH (09:21)
[2018-11-18] MEDS: Metoclopramide HCl 10 MG TAB PO SCH (09:21)
[2018-11-18] MEDS: Oxybutynin 5 MG TAB PO SCH (09:21)
[2018-11-18] MEDS: Nystatin Powder 15 GM BOT TOP SCH (09:21)
[2018-11-18 11:30] VITALS: BP 135/66; TEMP 98.1
--- NOTE | 2018-11-18 12:43 | PDOC.CTH ---
Cardiology Progress Note - Subjective The pt seen and examined. No overnight events. No cardiac complaints. - Objective Vital Signs Temp Pulse Resp BP Pulse Ox 11/18/18 11:29 98.1 F 60 18 135/66 93 L 11/18/18 10:19 62 18 95 11/18/18 09:20 62 11/18/18 07:55 97.6 F 62 18 133/63 94 L 11/18/18 06:48 95 11/18/18 06:47 72 16 95 11/18/18 03:37 98.6 F 70 20 123/57 L 92 L Weight 433 lb 11/17/18 11/18/18 11/19/18 06:59 06:59 06:59 Intake Total 1530 2070 Output Total 2400 2125 Balance -870 -55 - Physical Examination General/Neuro: alert & oriented x3 Neck: no JVD present Lungs: CTA Heart: RRR Abdomen: soft Extremities: other: (No edema) - Telemetry Telemetry Rhythm: SR - Labs Result Diagrams: 11/17/18 17:31 11/17/18 17:31 Troponin/CKMB Troponin I 0.014 ng/mL (< 0.028) 11/10/18 03:41 - Assessment/Plan 1. Afib with RVR - Remains in SR with Cardizem 240mg qd and Eliquis 5mg BID. 2. HTN - stable 3. COPD/Asthma with Home O2 4LNC - stable 4. Hypothyroidism - Levothyroxin, which managed by PCP 5. UTI - on ABX PO; managed by PCP 6. Morbid obesity 7. Diarhea - resolved MAR reviewed * Echo on 11/10/2018 showed EF 60-65%, mod-severe dilated LA, mild TR, and trace MR. From a cardiac standpoint she is stable for transfer to rehab. Review of Systems - Review of Systems Constitutional: reports: no symptoms reported EENTM: reports: no symptoms reported Respiratory: reports: no symptoms reported Cardiac (ROS): reports: no symptoms reported ABD/GI: reports: no symptoms reported : reports: no symptoms reported Musculoskeletal: reports: no symptoms reported Skin: reports: no symptoms reported
[2018-11-18 13:10] VITALS: BMI 69.9
== END 2018-11-18 13:07 | DRG 309 ==
LOC: ERS 19:04 → 2NO 11-10 00:56
PROVIDERS: ADMIT Hospitalist; ATTEND Hospitalist
DX: I48.0 Paroxysmal atrial fibrillation (principal); N17.9 Acute kidney failure, unspecified; J96.11 Chronic respiratory failure with hypoxia; Z68.44 Body mass index [BMI] 60.0-69.9, adult; N30.00 Acute cystitis without hematuria; G93.40 Encephalopathy, unspecified; I50.32 Chronic diastolic (congestive) heart failure; I11.0 Hypertensive heart disease with heart failure; E66.01 Morbid (severe) obesity due to excess calories; R73.03 Prediabetes; J44.9 Chronic obstructive pulmonary disease, unspecified; I87.2 Venous insufficiency (chronic) (peripheral); E03.9 Hypothyroidism, unspecified; R19.7 Diarrhea, unspecified; K21.9 Gastro-esophageal reflux disease without esophagitis; Z99.81 Dependence on supplemental oxygen; Z79.02 Long term (current) use of antithrombotics/antiplatelets; Z87.891 Personal history of nicotine dependence; Z88.2 Allergy status to sulfonamides; Z88.8 Allergy status to other drugs, medicaments and biological substances
CPT/HCPCS: 36415; 51702; 71045; 80048; 80053; 81003; 81015; 82274; 82550; 82565; 83605; 83735; 83880; 84439; 84443; 84484; 85014; 85018; 85025; 85049; 87324; 87449; 93005; 93306; 94640; 94760; 96361; 96365; 96366; 96375; 96376; J0696; J1650; J1940; J2270; J2405; J7050; J7620; J8597

== ENCOUNTER 2018-12-27 16:24 | Observation (INO) | payer MEDICARE ==
--- NOTE | 2018-12-27 19:02 | RAD ---
LEFT KNEE FOUR VIEWS: History: Injury. Pain. Comparison: None. FINDINGS: The exam is limited due to decreased penetration. Evaluation for joint effusion is severely limited. There is severe medial compartment joint space narrowing. Possible fracture of the articular surface of the lateral tibial plateau. IMPRESSION: 1. Possible lateral tibial plateau fracture although severely limited due to lack of penetration. A C T examination would be beneficial if clinically warranted. 2. Severe medial compartment degenerative disease. POS: ANAI
--- NOTE | 2018-12-27 20:18 | CT ---
CT LEFT KNEE WITHOUT CONTRAST: History: Fall, pain. Comparison: Radiograph same day. FINDINGS: Femur is intact. There is severe degenerative disease of the medial compartment with subcortical scle rosis, cyst formations as well as compartment narrowing. Large medial compartment osteophytes. Modera te lateral compartment osteophytes. No tibial plateau fracture is appreciated. There is extensive soft tissue swelling along the foot although it is incompletely evaluated on this exam. Abnormal sclerosis of the medial, intermediate, and lateral cuneiforms are present with some os sification on the intermediate cuneiform which may be sequellae of prior ligamentous injury. Tibia an d fibula are intact. IMPRESSION: Severe medial compartment degenerative changes of the knee. No acute displaced fracture is appreciate d. POS: ANAI
[2018-12-27] MEDS ORDERED: traMADol HCl 50 MG TAB ONE (20:26)
[2018-12-27] MEDS ORDERED: Ondansetron ODT 4 MG TAB SL PRN (21:33)
[2018-12-27] MEDS ORDERED: Ondansetron PF 4 MG/2 ML Vial IVP PRN (21:33)
[2018-12-27 21:39] VITALS: BMI 66.8
[2018-12-27] MEDS: Acetaminophen 325 MG TAB PO PRN (23:26)
[2018-12-28] MEDS: Acetaminophen 325 MG TAB PO PRN (03:31)
[2018-12-28 08:31] LABS: #Eosinphils 0.2 thou/uL (0.0-0.7); #Lymphocytes 1.6 thou/uL (1.20-3.40); #Monocytes 0.5 thou/uL (0.11-0.59); #Neutrophils 2.8 thou/uL (1.40-6.50); %Basophils 0.2 % (0.0-1.0); %Eosinophils 3.1 % (0.0-10.0); %Lymphocytes 31.5 % (21.0-51.0); %Monocytes 9.6 % (0.0-10.0); %Neutrophils 55.6 % (42.0-75.0); Hemoglobin 10.3 g/dL (12.0-16.0); Mean Corpuscular HGB CONC 30.9 g/dL (32.0-36.0); Mean Corpuscular Hemoglobin 26.7 pg (27.0-31.0); Mean Corpuscular Volume 86.7 fL (78.0-98.0); Mean Platelet Volume 8.4 fL (7.4-10.4); Platelet Count 240 thou/uL (130-400); RBC Distribution Width 13.6 % (11.5-14.5); Red Blood Cell (RBC) Count 3.87 mill/uL (4.20-5.40)
[2018-12-28 08:49] LABS: ALT (SGPT) Less than 7 U/L (8-55); AST (SGOT) 13 U/L (5-34); Albumin 3.4 g/dL (3.4-4.8); Alkaline Phosphatase 68 U/L (40-150); Anion Gap 12 mmol/L (10-20); BUN (Urea Nitrogen) 7 mg/dL (9.8-20.1); Bilirubin, Total 0.4 mg/dL (0.2-1.2); Calc. Creatinine Clearance 194 mL/min (70-130); Carbon Dioxide 31 mmol/L (23-31); Chloride 102 mmol/L (98-107); Estimated GFR-MDRD 67; Globulin 2.5 g/dL (2.4-3.5); Glucose 111 mg/dL (80-115); Potassium 3.8 mmol/L (3.5-5.1); Protein, Total 5.9 g/dL (6.0-8.3); Sodium 141 mmol/L (136-145)
[2018-12-28] MEDS ORDERED: Acetaminophen/Codeine 30-300mg Tablet PO SCH ×2 (11:30→14:00)
[2018-12-28] MEDS ORDERED: Losartan 25 MG TAB PO SCH (11:30)
--- NOTE | 2018-12-28 12:28 | HP ---
CHIEF COMPLAINT: Left knee gave out causing a fall of the bed. HISTORY OF PRESENT ILLNESS: Ms. Flores is a pleasant 68-year-old woman, who was recently discharged from rehab, where she was for approximately 3 weeks following a fall. The patient states she was at home and her son was helping her get back into bed. She managed to lift her right leg up and over into the bed; however, the left leg gave out causing her to roll off the bed and onto the floor. The patient reports having pain in the left knee and in her back. She underwent imaging in the ED including a knee x-ray, which showed a possible lateral tibial plateau fracture and severe medial compartment degenerative disease. A CT was obtained to further assess for fracture and showed severe medial compartment degenerative changes of the knee, but no acute displaced fracture appreciated. The patient does suffer from chronic joint and back pain, and states she often experiences difficulty with her knees. She describes a sensation of a ball hitting against a stump and states at times her knees give away causing her to slowly fall to the ground. The patient states while in rehab, she was doing well, however, states she had not really mobilize long distances as she normally does at home. She does have stairs in her home and is not feeling safe enough to return home due to her inability to mobilize confidently and independently. She gets a significant amount of support from her son; however, he is also dealing with medical issues including a recent colostomy. The patient denies having any complaints at this time. She has a past medical history of COPD and is normally on oxygen. She denies having any worsening of her shortness of breath. REVIEW OF SYSTEMS: She denies having any fevers, chills, or sweats. Denies having any chest pain or palpitations. She denies any abdominal pain or cramping. She has been moving her bowels normal. No urinary symptoms. Denies having any dysuria or hematuria. Denies any headaches or dizziness. All other review of systems are negative. PAST MEDICAL HISTORY: 1. Hypertension. 2. COPD on oxygen. 3. Chronic neck and back pain with bulging disks. 4. Urinary incontinence. 5. Hypothyroidism. 6. GERD. 7. History of UTIs. 8. Atrial fibrillation. 9. Anxiety. PAST SURGICAL HISTORY: 1. Heart cath with no lesions per patient in 1996. 2. Right Achilles heel repair. 3. Tonsillectomy. SOCIAL HISTORY: The patient denies any alcohol use or illicit drug use. Denies smoking. ALLERGIES: 1. IODINE AND IODINE CONTAINING PRODUCTS. 2. SULFA. CURRENT MEDICATIONS: 1. Oxybutynin 5 mg p.o. twice daily. 2. Trazodone 300 mg p.o. daily. 3. Losartan 50 mg p.o. daily. 4. Levofloxacin 750 mg p.o. daily. 5. Pantoprazole 40 mg p.o. daily. 6. Tramadol 50 mg p.o. daily. 7. Metoclopramide 10 mg p.o. b.i.d. 8. Cyclobenzaprine 10 mg p.o. daily. 9. Benzonatate 100 mg p.o. t.i.d. 10. Gabapentin 400 mg p.o. t.i.d. 11. Tylenol with codeine one tablet p.o. q.8 hours as needed for pain. PHYSICAL EXAMINATION: GENERAL: The patient is morbidly obese. She is in no acute distress. VITAL SIGNS: Temperature 97.7, pulse 67, respirations 20, O2 saturation 93% on 3 L per nasal cannula, and blood pressure 146/71. HEENT: Normocephalic and atraumatic. Pupils are equal, round, and reactive to light. Sclerae are without icterus. Oropharynx is clear. NECK: Supple. Full range of motion. LUNGS: Clear to auscultation bilaterally without any wheezes, rales, or rhonchi. CARDIAC: Regular rate and rhythm. ABDOMEN: Soft, obese, nontender. No guarding or rigidity. No renal angle tenderness. EXTREMITIES: No edema or swelling. No calf tenderness. NEUROLOGIC: Alert and oriented x3. SKIN: Without rash or jaundice. LABORATORY DATA: White blood count 5, hemoglobin 10.3, hematocrit 33.5, platelets 140. Sodium 141, potassium 3.8, BUN 7, creatinine 0.85, GFR 67, total bilirubin 0.4, AST 13, ALT less than 7, alkaline phosphatase 68, and albumin 3.4. IMAGING DATA: As mentioned above in HPI. IMPRESSION AND PLAN: Ms. Flores is a pleasant 68-year-old woman, admitted to the hospital for management of the following. 1. Left knee pain secondary to fall. Pain controlled with medications. Imaging studies have demonstrated no evidence of a fracture. The patient states the discomfort is not any worse from her chronic joint aches and pains; however, does not feel confident in returning home given her general deconditioning and inability to mobilize without assistance for long distances. PT, OT eval and rehab screening requested. 2. Pain. Resume regular home medications including Tylenol 3, Flexeril, and Neurontin. 3. Hypertension. Resume home medications and monitor blood pressure. 4. Hypothyroidism. Resume home medications. 5. History of atrial fibrillation. Resume home medications. 6. Gastroesophageal reflux disease. Resume home medications. The patient's case was discussed with Dr. Joya, who agrees with the plan of care as described above. Job ID: [id number]
[2018-12-28] MEDS: Gabapentin 400 MG CAP PO SCH ×2 (14:47→20:57)
[2018-12-28] MEDS ORDERED: Dicyclomine 10 MG CAP PO SCH (17:45)
--- NOTE | 2018-12-28 18:22 | RAD ---
ABDOMEN ONE VIEW: 12/28/18 HISTORY: Abdominal pain and nausea. COMPARISON: None. FINDINGS: Evaluation for free air is limited without an upright exam. The hemidiaphragms are not incorporated o n these two examinations. Moderate stool burden. No abnormal calcifications projecting over the renal shadows. Small phlebolith in the pelvis. No acute osseous abnormality. There is suture material along the left upper quadrant of the abdomen. IMPRESSION: Within the limits of this exam, no acute abnormality. POS: ANAI
[2018-12-28] MEDS: Apixaban 5 MG TAB PO SCH (20:57)
[2018-12-28] MEDS: Dicyclomine 10 MG CAP PO SCH (20:57)
[2018-12-28] MEDS: Trospium 20 MG TAB PO SCH (20:57)
[2018-12-28] MEDS: Metoclopramide HCl 10 MG TAB PO SCH (20:57)
[2018-12-28] MEDS ORDERED: Oxybutynin 5 MG TAB PO SCH (21:00)
[2018-12-28] MEDS ORDERED: Trospium 20 MG TAB PO SCH (21:00)
[2018-12-28] MEDS: Acetaminophen/Codeine 30-300mg Tablet PO SCH (21:01)
[2018-12-29] MEDS: Levothyroxine Sodium 112 MCG TAB PO SCH (05:03)
[2018-12-29] MEDS: Acetaminophen/Codeine 30-300mg Tablet PO SCH ×3 (05:03→21:03)
[2018-12-29] MEDS: Levothyroxine Sodium 25 MCG TAB PO SCH (05:03)
[2018-12-29 06:59] LABS: #Eosinphils 0.2 thou/uL (0.0-0.7); #Lymphocytes 1.6 thou/uL (1.20-3.40); #Monocytes 0.4 thou/uL (0.11-0.59); #Neutrophils 2.5 thou/uL (1.40-6.50); %Basophils 0.5 % (0.0-1.0); %Eosinophils 3.4 % (0.0-10.0); %Lymphocytes 34.4 % (21.0-51.0); %Neutrophils 52.7 % (42.0-75.0); Hemoglobin 10.8 g/dL (12.0-16.0); Mean Corpuscular HGB CONC 31.1 g/dL (32.0-36.0); Mean Corpuscular Hemoglobin 27.5 pg (27.0-31.0); Mean Corpuscular Volume 88.6 fL (78.0-98.0); Mean Platelet Volume 8.3 fL (7.4-10.4); Platelet Count 234 thou/uL (130-400); RBC Distribution Width 13.7 % (11.5-14.5); Red Blood Cell (RBC) Count 3.91 mill/uL (4.20-5.40); White Blood Cell (WBC) Count 4.7 thou/uL (4.8-10.8)
[2018-12-29 07:26] LABS: Anion Gap 9 mmol/L (10-20); BUN (Urea Nitrogen) 7 mg/dL (9.8-20.1); Calc. Creatinine Clearance 181 mL/min (70-130); Calcium 9.2 mg/dL (7.8-10.44); Carbon Dioxide 34 mmol/L (23-31); Chloride 103 mmol/L (98-107); Estimated GFR-MDRD 61; Glucose 108 mg/dL (80-115); Sodium 142 mmol/L (136-145)
[2018-12-29] MEDS: Apixaban 5 MG TAB PO SCH ×2 (08:58→20:59)
[2018-12-29] MEDS: Metoclopramide HCl 10 MG TAB PO SCH ×2 (08:58→20:59)
[2018-12-29] MEDS: Gabapentin 400 MG CAP PO SCH ×3 (08:58→20:59)
[2018-12-29] MEDS: Trospium 20 MG TAB PO SCH ×2 (08:58→21:00)
[2018-12-29] MEDS: Dicyclomine 10 MG CAP PO SCH ×4 (08:59→21:00)
[2018-12-29] MEDS ORDERED: LEVOTHYROXINE SODIUM PO SCH (09:00)
[2018-12-29] MEDS ORDERED: Polyethylene Glycol 3350 17 GM Packet PO SCH (11:45)
[2018-12-29] MEDS: traZODone HCl 50 MG TAB PO SCH (12:19)
[2018-12-29] MEDS: Cyclobenzaprine 10 MG TAB PO PRN (21:03)
[2018-12-30] MEDS: Levothyroxine Sodium 25 MCG TAB PO SCH (05:10)
[2018-12-30] MEDS: Levothyroxine Sodium 112 MCG TAB PO SCH (05:10)
[2018-12-30] MEDS: Acetaminophen/Codeine 30-300mg Tablet PO SCH ×3 (05:10→21:11)
[2018-12-30 05:47] LABS: Anion Gap 13 mmol/L (10-20); BUN (Urea Nitrogen) 8 mg/dL (9.8-20.1); Calc. Creatinine Clearance 177 mL/min (70-130); Carbon Dioxide 29 mmol/L (23-31); Chloride 104 mmol/L (98-107); Estimated GFR-MDRD 60; Glucose 96 mg/dL (80-115); Potassium 4.6 mmol/L (3.5-5.1); Sodium 141 mmol/L (136-145)
[2018-12-30 05:51] LABS: #Eosinphils 0.2 thou/uL (0.0-0.7); #Lymphocytes 2.2 thou/uL (1.20-3.40); #Monocytes 0.5 thou/uL (0.11-0.59); #Neutrophils 3.1 thou/uL (1.40-6.50); %Basophils 0.4 % (0.0-1.0); %Eosinophils 3.4 % (0.0-10.0); %Lymphocytes 36.8 % (21.0-51.0); %Monocytes 7.7 % (0.0-10.0); %Neutrophils 51.8 % (42.0-75.0); Hemoglobin 11.1 g/dL (12.0-16.0); Mean Corpuscular HGB CONC 31.2 g/dL (32.0-36.0); Mean Corpuscular Hemoglobin 27.7 pg (27.0-31.0); Mean Corpuscular Volume 88.9 fL (78.0-98.0); Mean Platelet Volume 9.7 fL (7.4-10.4); Platelet Count 169 thou/uL (130-400); RBC Distribution Width 14.1 % (11.5-14.5); Red Blood Cell (RBC) Count 3.99 mill/uL (4.20-5.40); White Blood Cell (WBC) Count 6.1 thou/uL (4.8-10.8)
[2018-12-30] MEDS: Dicyclomine 10 MG CAP PO SCH ×4 (09:29→20:02)
[2018-12-30] MEDS: Apixaban 5 MG TAB PO SCH ×2 (09:29→20:01)
[2018-12-30] MEDS: Trospium 20 MG TAB PO SCH ×2 (09:29→20:02)
[2018-12-30] MEDS: Metoclopramide HCl 10 MG TAB PO SCH ×2 (09:29→20:02)
[2018-12-30] MEDS: Gabapentin 400 MG CAP PO SCH ×3 (09:29→20:01)
[2018-12-30] MEDS: traZODone HCl 50 MG TAB PO SCH (09:30)
--- NOTE | 2018-12-30 16:08 | PDOC.PN ---
- Subjective Encounter Start Date: 12/30/18 Encounter Start Time: 16:06 Subjective: Patient resting comfortably. States she was able to have a bowel -: movement last night. Has some itching of her face which she states -: is chronic. Denies any further abdominal pain. No n/v. No chest pain or sob At present she is awaiting placement. I discussed with Dr. Robbins who took care of her when she was at [facility]. He is happy to take her. At this present time we are awaiting approval from [facility]. Patient doing well and without any problems at present. - Objective Vital Signs & Weight: Vital Signs (12 hours) Temp Pulse Resp BP BP Pulse Ox 12/30/18 14:01 80 16 12/30/18 11:00 98.1 F 70 18 132/80 95 12/30/18 10:40 70 16 12/30/18 09:29 68 144/80 H 12/30/18 07:30 97.9 F 68 20 144/80 H 95 12/30/18 06:36 100 16 12/30/18 04:27 98.4 F 70 18 149/78 H 94 L Weight Weight 426 lb 12.8 oz I&O: 12/29/18 12/30/18 12/31/18 06:59 06:59 06:59 Intake Total 1550 3150 Output Total 2600 4875 Balance -1050 -1725 Result Diagrams: 12/30/18 05:08 12/30/18 05:08 Phys Exam - Physical Examination Constitutional: NAD HEENT: PERRLA, oral pharynx no lesions Neck: supple, full ROM Respiratory: clear to auscultation bilateral Cardiovascular: RRR Gastrointestinal: soft, non-tender, no distention, positive bowel sounds morbidly obese Psychiatric: normal affect, A&O x 3 Deviation from normal: pruritic blotchy rash on left side of face, hx of psoriasis Dx/Plan (1) Constipation Code(s): K59.00 - CONSTIPATION, UNSPECIFIED Status: Resolved Plan: Moving bowels with help of stool softeners. No abdominal pain. (2) Hypothyroidism Code(s): E03.9 - HYPOTHYROIDISM, UNSPECIFIED Status: Chronic Comment: On Levothyroxine. (3) Morbid obesity Code(s): E66.01 - MORBID (SEVERE) OBESITY DUE TO EXCESS CALORIES Status: Chronic Comment: Dietitian consult, low-fat diet, SNF pending (4) Physical deconditioning Code(s): R53.81 - OTHER MALAISE Status: Chronic Comment: PT/OT with placement pending. - Plan cont current plan of care * .
[2018-12-30] MEDS ORDERED: Triamcinolone 0.5 % Ointment 15 Gram Tube TOP PRN (16:09)
[2018-12-30] MEDS ORDERED: Betamethasone Val 0.1% OINT 15 GM TUBE TOP PRN (16:16)
[2018-12-30] MEDS ORDERED: diphenhydrAMINE 25 MG CAP PO PRN (17:38)
--- NOTE | 2018-12-30 17:59 | PDOC.PN ---
- Subjective Encounter Start Date: 12/29/18 Encounter Start Time: 12:01 Subjective: Patient states she feels well but continues to have -: difficulty moving her bowels. Denies any abdominal pain. -: No nausea or vomiting. Tolerating oral intake. Denies any cp/sob. Has been mobilizing with the help of PT. - Objective Vital Signs & Weight: Vital Signs (12 hours) Temp Pulse Resp BP BP Pulse Ox 12/30/18 15:00 97.9 F 74 20 142/79 H 97 12/30/18 14:01 80 16 12/30/18 11:00 98.1 F 70 18 132/80 95 12/30/18 10:40 70 16 12/30/18 09:29 68 144/80 H 12/30/18 07:30 97.9 F 68 20 144/80 H 95 12/30/18 06:36 100 16 Weight Weight 426 lb 12.8 oz I&O: 12/29/18 12/30/18 12/31/18 06:59 06:59 06:59 Intake Total 1550 3150 Output Total 2600 4875 Balance -1050 -1725 Result Diagrams: 12/30/18 05:08 12/30/18 05:08 Phys Exam - Physical Examination Constitutional: NAD Morbidly obese HEENT: PERRLA, moist MMs, oral pharynx no lesions Neck: full ROM Respiratory: no wheezing, no rales, no rhonchi, clear to auscultation bilateral Cardiovascular: RRR Gastrointestinal: soft, non-tender, no distention, positive bowel sounds Musculoskeletal: no edema Neurological: normal sensation Psychiatric: normal affect, A&O x 3 Dx/Plan (1) Constipation Code(s): K59.00 - CONSTIPATION, UNSPECIFIED Status: Chronic Plan: Senna and miralax. (2) Hypothyroidism Code(s): E03.9 - HYPOTHYROIDISM, UNSPECIFIED Status: Chronic Comment: On Levothyroxine. (3) Morbid obesity Code(s): E66.01 - MORBID (SEVERE) OBESITY DUE TO EXCESS CALORIES Status: Chronic Comment: Low fat diet. Placement pending. (4) Physical deconditioning Code(s): R53.81 - OTHER MALAISE Status: Chronic Comment: PT/OT with placement pending. - Plan cont current plan of care * .
[2018-12-30] MEDS ORDERED: Nystatin Powder 15 GM BOT TOP PRN (19:40)
[2018-12-30] MEDS: Cyclobenzaprine 10 MG TAB PO PRN (21:11)
[2018-12-31] MEDS: Levothyroxine Sodium 112 MCG TAB PO SCH (05:07)
[2018-12-31] MEDS: Levothyroxine Sodium 25 MCG TAB PO SCH (05:07)
[2018-12-31] MEDS: Acetaminophen/Codeine 30-300mg Tablet PO SCH ×3 (05:08→21:21)
[2018-12-31 05:31] LABS: #Eosinphils 0.2 thou/uL (0.0-0.7); #Lymphocytes 1.7 thou/uL (1.20-3.40); #Monocytes 0.5 thou/uL (0.11-0.59); #Neutrophils 2.7 thou/uL (1.40-6.50); %Basophils 0.5 % (0.0-1.0); %Eosinophils 3.5 % (0.0-10.0); %Lymphocytes 33.4 % (21.0-51.0); %Monocytes 9.3 % (0.0-10.0); %Neutrophils 53.3 % (42.0-75.0); Hemoglobin 10.7 g/dL (12.0-16.0); Mean Corpuscular HGB CONC 31.7 g/dL (32.0-36.0); Mean Corpuscular Hemoglobin 28.1 pg (27.0-31.0); Mean Corpuscular Volume 88.5 fL (78.0-98.0); Mean Platelet Volume 8.7 fL (7.4-10.4); Platelet Count 234 thou/uL (130-400); RBC Distribution Width 13.9 % (11.5-14.5); Red Blood Cell (RBC) Count 3.82 mill/uL (4.20-5.40)
[2018-12-31 05:48] LABS: Anion Gap 9 mmol/L (10-20); BUN (Urea Nitrogen) 9 mg/dL (9.8-20.1); Calc. Creatinine Clearance 160 mL/min (70-130); Calcium 9.3 mg/dL (7.8-10.44); Carbon Dioxide 35 mmol/L (23-31); Chloride 101 mmol/L (98-107); Estimated GFR-MDRD 53; Glucose 108 mg/dL (80-115); Potassium 4.4 mmol/L (3.5-5.1); Sodium 141 mmol/L (136-145)
[2018-12-31] MEDS: Dicyclomine 10 MG CAP PO SCH ×4 (09:01→21:21)
[2018-12-31] MEDS: traZODone HCl 50 MG TAB PO SCH (09:01)
[2018-12-31] MEDS: Trospium 20 MG TAB PO SCH ×2 (09:01→21:21)
[2018-12-31] MEDS: Apixaban 5 MG TAB PO SCH ×2 (09:01→21:20)
[2018-12-31] MEDS: Metoclopramide HCl 10 MG TAB PO SCH ×2 (09:02→21:21)
[2018-12-31] MEDS: Gabapentin 400 MG CAP PO SCH ×3 (09:02→21:21)
[2018-12-31] MEDS ORDERED: Aluminum & Magnesium Hydroxide 60 ML, Lidocaine 2% Viscous Solution 30 ML, diphenhydrAM... SSW SCH (13:00)
[2018-12-31] MEDS: Benzonatate 100 MG CAP PO SCH ×2 (13:20→21:20)
[2018-12-31] MEDS: Cyclobenzaprine 10 MG TAB PO PRN ×2 (13:21→21:21)
--- NOTE | 2018-12-31 13:21 | PRG ---
DATE OF SERVICE: 12/31/2018 SUBJECTIVE: Reviewed the case with Baylee Lieberman. I reviewed the case and examined the patient. The patient was known to me from her previous admission. She was discharged to rehab. She states she was at home from rehab for just a matter of hours or less than an hour before she fell and injured her knee. The patient is feeling that she is actually better than she was from her previous admission, but is still capable of managing at home at this particular juncture. She has developed an erythematous rash over the left side of her face. On further exam, it appears to be somewhat psoriatic. She does have significant degenerative joint disease, but has significant obesity, which is likely contributory. She does occasionally have some of these patches on her elbow, not so much on her knees. She does not have any pitting of her nail beds. There is still concern certainly for the possibility of psoriatic arthritis. At any rate, the patient prepared to go to rehab. She has been accepted waiting on insurance approval at this juncture. We are at the 72 hour eliel today and should have a decision at some point today. Job ID: [id number] MTDD
--- NOTE | 2018-12-31 15:36 | RAD ---
SINGLE VIEW CHEST: Date: 12/31/18 COMPARISON: 11/09/18. HISTORY: Persistent cough and choking episode. FINDINGS: Single view of the chest shows a normal sized cardiomediastinal silhouette. There is no evidence of c onsolidation, mass, or pleural effusion. The bones are unremarkable. IMPRESSION: No evidence of acute cardiopulmonary disease. POS: [facility]
[2018-12-31 16:30] LABS: Bilirubin Negative (Negative); Blood, Urine Large (Negative); Clarity CLOUDY (Clear); Glucose, Urine (Dipstick) Negative (Negative); Leukocyte Moderate (Negative); Nitrite Positive (Negative); Protein, Urine (Dipstick) Trace mg/dL (Neg-Trace); Specific Gravity, Urine 1.007 (1.002-1.036); pH, Urine 5.5 (5.0-9.0)
[2018-12-31 16:33] LABS: Bacteria/HPF 3+ HPF (None Seen); Hyaline Casts/LPF 4-6 HYALINE CAST LPF (0-3 Hyaline); Pathc Cast-AUWi Flag 0.54 (0-2.49); Squamous Epithelial None Seen HPF (0-3)
--- NOTE | 2018-12-31 16:55 | PDOC.PN ---
- Subjective Encounter Start Date: 12/31/18 Encounter Start Time: 13:51 Subjective: Patient complaining of constipation, small hard stool yesterday. -: Had good bowel movement the day before with Miralax. Eating/drinking -: without n/v. Has had a cough, bringing up white/clear phlegm. Afebrile. No chest pain or sob. No hemoptysis. Has been walking with PT but only able to get as far as 12 steps. Denies any dizziness but has sob, which is chronic for her. She is on oxygen at home due to COPD. - Objective Vital Signs & Weight: Vital Signs (12 hours) Temp Pulse Resp BP BP Pulse Ox 12/31/18 15:50 98.1 F 79 18 105/66 93 L 12/31/18 13:24 100 24 H 12/31/18 11:32 97.6 F 70 18 108/66 97 12/31/18 11:14 72 20 12/31/18 09:01 89 126/71 12/31/18 08:28 94 L 12/31/18 08:26 89 20 94 L 12/31/18 07:31 97.9 F 64 18 126/71 95 Weight Weight 426 lb 12.8 oz I&O: 12/30/18 12/31/18 01/01/19 06:59 06:59 06:59 Intake Total 3150 3210 Output Total 4887 0345 Balance -1725 -6750 Result Diagrams: 12/31/18 04:41 12/31/18 04:41 Phys Exam - Physical Examination Constitutional: NAD HEENT: PERRLA, moist MMs, oral pharynx no lesions Neck: supple, full ROM Respiratory: clear to auscultation bilateral Cardiovascular: RRR Gastrointestinal: soft, non-tender, no distention, positive bowel sounds Morbidly obese Musculoskeletal: no edema Neurological: normal sensation, moves all 4 limbs Psychiatric: normal affect, A&O x 3 Deviation from normal: well-demarcated rash on left side of face and neck, flare since yesterday -: non-pruritic, per patient chronic issue Dx/Plan (1) Constipation Code(s): K59.00 - CONSTIPATION, UNSPECIFIED Status: Chronic (2) Hypothyroidism Code(s): E03.9 - HYPOTHYROIDISM, UNSPECIFIED Status: Chronic Comment: On Levothyroxine. (3) Morbid obesity Code(s): E66.01 - MORBID (SEVERE) OBESITY DUE TO EXCESS CALORIES Status: Chronic Comment: Low fat diet. Placement pending. (4) Physical deconditioning Code(s): R53.81 - OTHER MALAISE Status: Chronic Comment: PT/OT with placement pending. - Plan cont current plan of care Patient with coughing fits while eating lunch. Bringing up clear phlegm. -: CXR requested. Patient admits to frequently holding her breath. -: Rash likely associated with Psoriatic arthritis (Dr. Nava has seen pt). -: Improved with topical steroids. -: Awaiting placement. Per RN, urine odorous. UA/UCx requested. ADDENDUM: Received notification from [facility] that dario intends to deny request for transfer to swing bed. I have called to complete peer to peer ([phone]). High call volume and prompted to leave a message. UA positive, Levaquin 750 mg IV q24h, with plans to transition to PO on discharge. Patient afebrile. Awaiting UCx.
[2018-12-31] MEDS: guaiFENesin ER 600 MG TAB PO SCH (21:21)
[2019-01-01 04:55] LABS: #Eosinphils 0.2 thou/uL (0.0-0.7); #Lymphocytes 1.7 thou/uL (1.20-3.40); #Monocytes 0.5 thou/uL (0.11-0.59); #Neutrophils 2.6 thou/uL (1.40-6.50); %Basophils 0.5 % (0.0-1.0); %Eosinophils 3.3 % (0.0-10.0); %Lymphocytes 33.5 % (21.0-51.0); %Monocytes 9.7 % (0.0-10.0); Hemoglobin 10.8 g/dL (12.0-16.0); Mean Corpuscular HGB CONC 32.7 g/dL (32.0-36.0); Mean Corpuscular Hemoglobin 28.3 pg (27.0-31.0); Mean Corpuscular Volume 86.4 fL (78.0-98.0); Mean Platelet Volume 8.4 fL (7.4-10.4); Platelet Count 219 thou/uL (130-400); White Blood Cell (WBC) Count 4.9 thou/uL (4.8-10.8)
[2019-01-01 05:21] LABS: Anion Gap 10 mmol/L (10-20); BUN (Urea Nitrogen) 9 mg/dL (9.8-20.1); Calc. Creatinine Clearance 150 mL/min (70-130); Calcium 9.2 mg/dL (7.8-10.44); Carbon Dioxide 34 mmol/L (23-31); Chloride 101 mmol/L (98-107); Estimated GFR-MDRD 49; Glucose 108 mg/dL (80-115); Potassium 4.1 mmol/L (3.5-5.1); Sodium 141 mmol/L (136-145)
[2019-01-01] MEDS: Levothyroxine Sodium 25 MCG TAB PO SCH (06:05)
[2019-01-01] MEDS: Acetaminophen/Codeine 30-300mg Tablet PO SCH ×3 (06:05→22:27)
[2019-01-01] MEDS: Levothyroxine Sodium 112 MCG TAB PO SCH (06:05)
[2019-01-01] MEDS: Trospium 20 MG TAB PO SCH ×2 (08:38→20:05)
[2019-01-01] MEDS: traZODone HCl 50 MG TAB PO SCH (08:39)
[2019-01-01] MEDS: Dicyclomine 10 MG CAP PO SCH ×4 (08:40→20:03)
[2019-01-01] MEDS: Gabapentin 400 MG CAP PO SCH ×3 (08:40→20:04)
[2019-01-01] MEDS: Metoclopramide HCl 10 MG TAB PO SCH ×2 (08:40→20:04)
[2019-01-01] MEDS: guaiFENesin ER 600 MG TAB PO SCH ×2 (08:40→20:04)
[2019-01-01] MEDS: Apixaban 5 MG TAB PO SCH ×2 (08:40→20:03)
[2019-01-01] MEDS: Benzonatate 100 MG CAP PO SCH ×3 (08:40→20:03)
--- NOTE | 2019-01-01 11:03 | PRG ---
DATE OF SERVICE: 01/01/2019 SUBJECTIVE: The patient is doing well today. She has no specific complaints. She did have a significant episode yesterday of coughing aggressively after attempting to eat her evening meal and then she reports she had a little bit this morning. She does admit that it is primarily with trying to swallow. It can even happen with water. She feels like there is something in her esophagus that is not working properly. OBJECTIVE: VITAL SIGNS: Temperature 98.3, pulse 69, respirations 18, O2 saturation 97% on room air, and BP is 117/69. GENERAL APPEARANCE: Morbidly obese, age-appropriate female, in no distress. She is awake, alert, oriented, pleasant, cooperative. HEART: Regular rate and rhythm without murmurs. LUNGS: Clear bilaterally with no wheeze or rales. ABDOMEN: Soft, nontender, and nondistended. Positive bowel sounds. She does have upper abdomen ventral hernia. EXTREMITIES: No cyanosis, clubbing, or edema. SKIN: There is a bit of violaceous type erythematous patches over her left face and postauricular area that is significantly improved over the last day or 2. LABORATORY DATA: White count is 4.9, hemoglobin 10.8. Sodium 141, potassium 4.1, chloride 101, CO2 is 34, BUN 9, creatinine 1.1. Urinalysis from yesterday revealed significant evidence of urinary tract infection. So far, cultures are still pending. IMPRESSION AND PLAN: 1. Knee pain. The patient initially presented with fall related to the pain. Improved. 2. Physical deconditioning, improving. Continue therapy. Still awaiting on rehab placement possibilities. 3. Fall related to the deconditioning and knee pain. 4. Urinary tract infection. The patient has a chronic indwelling Slaughter catheter due to her chronic debility, as she gets closer to the point where that can likely be discontinued as her mobility improves. We will continue with the Levaquin. We will go ahead and switch that to a p.o. Still awaiting cultures. 5. Dysphagia with some possible mild aspiration. We will get a Speech Therapy consult. 6. Hypothyroidism. Continue levothyroxine. 7. Morbid obesity. 8. Disposition. Waited for 3 days for peer to peer be done until Thursday , so the patient will be here until that time. Job ID: [id number] [facility]
[2019-01-01] MEDS ORDERED: Polyethylene Glycol 3350 17 GM Packet PO ONE (12:19)
[2019-01-01] MEDS: Cyclobenzaprine 10 MG TAB PO PRN ×2 (15:07→22:28)
[2019-01-02] MEDS: Acetaminophen/Codeine 30-300mg Tablet PO SCH ×3 (05:34→23:05)
[2019-01-02] MEDS: Levothyroxine Sodium 25 MCG TAB PO SCH (05:35)
[2019-01-02] MEDS: Levothyroxine Sodium 112 MCG TAB PO SCH (05:35)
[2019-01-02] MEDS: traZODone HCl 50 MG TAB PO SCH (09:05)
[2019-01-02] MEDS: Benzonatate 100 MG CAP PO SCH ×3 (09:05→20:38)
[2019-01-02] MEDS: Trospium 20 MG TAB PO SCH ×2 (09:06→20:39)
[2019-01-02] MEDS: Dicyclomine 10 MG CAP PO SCH ×4 (09:06→20:38)
[2019-01-02] MEDS: guaiFENesin ER 600 MG TAB PO SCH ×2 (09:06→20:39)
[2019-01-02] MEDS: Apixaban 5 MG TAB PO SCH ×2 (09:06→20:38)
[2019-01-02] MEDS: Gabapentin 400 MG CAP PO SCH ×3 (09:06→20:39)
[2019-01-02] MEDS: Metoclopramide HCl 10 MG TAB PO SCH ×2 (09:06→20:40)
[2019-01-02] MEDS: Cyclobenzaprine 10 MG TAB PO PRN ×2 (15:20→23:05)
--- NOTE | 2019-01-02 19:04 | PDOC.PN ---
- Subjective Encounter Start Date: 01/02/19 Encounter Start Time: 18:45 Subjective: f/u for deconditioning, limited mobility awaiting swing bed approval. -: Feels ok overall. No new issues. Appetite ok. - Objective MAR Reviewed: Yes Vital Signs & Weight: Vital Signs (12 hours) Temp Pulse Resp BP BP Pulse Ox 01/02/19 15:44 98.1 F 65 18 136/70 96 01/02/19 15:21 72 20 01/02/19 12:38 76 20 01/02/19 12:00 98.3 F 71 18 108/68 94 L 01/02/19 08:19 95 01/02/19 08:17 66 24 H 95 01/02/19 07:35 97.9 F 64 12 131/77 94 L Weight Weight 426 lb 12.8 oz I&O: 01/01/19 01/02/19 01/03/19 06:59 06:59 06:59 Intake Total 4600 2070 1500 Output Total 5000 4300 2400 Balance -400 -8851 -900 Result Diagrams: 01/01/19 04:20 01/01/19 04:20 Additional Labs: Microbiology 12/31/18 16:00 Urine crowley catheter Urine Culture - Final Escherichia coli 11/11/18 10:20 Stool Stool Occult Blood (DEANNE) - Final 11/11/18 10:20 Stool C. difficile GDH Antigen & Toxins - Final Laboratory Tests 11/09/18 11/09/18 11/09/18 19:52 19:52 19:52 WBC 11.1 H Creatinine 1.30 H Magnesium 2.0 Troponin I B-Natriuretic Peptide Free T4 TSH 3rd Generation 27.3158 H 11/09/18 11/09/18 11/10/18 19:52 19:52 00:37 WBC Creatinine Magnesium Troponin I 0.010 0.012 B-Natriuretic Peptide 18.5 Free T4 TSH 3rd Generation 11/10/18 11/10/18 11/11/18 03:41 03:41 05:17 WBC Creatinine 1.11 H Magnesium Troponin I 0.014 B-Natriuretic Peptide Free T4 0.78 TSH 3rd Generation Radiology Reviewed by me: Yes (PCXR - neg) Phys Exam - Physical Examination Constitutional: NAD HEENT: PERRLA, sclera anicteric, oral pharynx no lesions Neck: no nodes, no JVD, supple, full ROM Respiratory: no wheezing, no rales, no rhonchi, clear to auscultation bilateral Cardiovascular: RRR, no significant murmur, no rub, gallop obese Gastrointestinal: soft, non-tender, no distention, positive bowel sounds Musculoskeletal: no edema, pulses present Neurological: normal sensation, moves all 4 limbs Psychiatric: A&O x 3 Skin: normal turgor, cap refill <2 seconds Dx/Plan (1) UTI (urinary tract infection) Status: Acute Qualifiers: Urinary tract infection type: acute cystitis Comment: E.coli pansensitive, continue Levaquin 500mg daily (2) Hypothyroidism Code(s): E03.9 - HYPOTHYROIDISM, UNSPECIFIED Status: Chronic Comment: Continue Levothyroxine 137mcg daily (3) Morbid obesity Code(s): E66.01 - MORBID (SEVERE) OBESITY DUE TO EXCESS CALORIES Status: Chronic Comment: Low fat diet. Placement pending. (4) Dysphagia Code(s): R13.10 - DYSPHAGIA, UNSPECIFIED Status: Acute Qualifiers: Dysphagia type: oropharyngeal phase Qualified Code(s): R13.12 - Dysphagia, oropharyngeal phase Comment: Likely subacute due to immobility, morbid obesity, continue modified po intake, PPI - Plan continue antibiotics, PT/OT, social science manager, speech therapy, out of bed/ ambulate, DVT proph w/SCDs Stable currently -: Continue Diltiazem/Eliquis -: PT for mobilization -: Await approval for SNF/rehab -: Continue Levaquin 500mg daily * .
[2019-01-03] MEDS: Acetaminophen/Codeine 30-300mg Tablet PO SCH ×3 (05:10→21:23)
[2019-01-03] MEDS: Levothyroxine Sodium 112 MCG TAB PO SCH (05:11)
[2019-01-03] MEDS: Levothyroxine Sodium 25 MCG TAB PO SCH (05:11)
[2019-01-03] MEDS: Trospium 20 MG TAB PO SCH ×2 (09:10→21:00)
[2019-01-03] MEDS: Apixaban 5 MG TAB PO SCH ×2 (09:10→20:59)
[2019-01-03] MEDS: traZODone HCl 50 MG TAB PO SCH (09:11)
[2019-01-03] MEDS: guaiFENesin ER 600 MG TAB PO SCH ×2 (09:11→21:00)
[2019-01-03] MEDS: Gabapentin 400 MG CAP PO SCH ×3 (09:11→21:00)
[2019-01-03] MEDS: Benzonatate 100 MG CAP PO SCH ×3 (09:11→20:59)
[2019-01-03] MEDS: Metoclopramide HCl 10 MG TAB PO SCH ×2 (09:12→21:00)
[2019-01-03] MEDS: Dicyclomine 10 MG CAP PO SCH ×4 (09:13→21:00)
--- NOTE | 2019-01-03 20:06 | PDOC.PN ---
- Subjective Encounter Start Date: 01/03/19 Encounter Start Time: 15:50 Subjective: f/u for gen weakness, falls, deconditioning and E. coli UTI. Feels ok -: overall. Ambulated approx 15' with CGA. Still weak and needing assistance -: with all ADL's - Objective MAR Reviewed: Yes Vital Signs & Weight: Vital Signs (12 hours) Temp Pulse Resp BP BP BP Pulse Ox 01/03/19 19:55 95 01/03/19 19:54 95 01/03/19 15:28 70 20 96 01/03/19 15:00 98.2 F 68 20 119/62 95 01/03/19 11:39 97.6 F 81 22 H 118/69 95 01/03/19 11:03 81 20 94 L 01/03/19 09:12 75 121/70 Weight Weight 426 lb 12.8 oz I&O: 01/02/19 01/03/19 01/04/19 06:59 06:59 06:59 Intake Total 2070 2220 Output Total 4300 4450 Balance -2230 -2230 Result Diagrams: 01/01/19 04:20 01/01/19 04:20 Additional Labs: Microbiology 12/31/18 16:00 Urine crowley catheter Urine Culture - Final Escherichia coli Phys Exam - Physical Examination Constitutional: NAD HEENT: PERRLA, sclera anicteric, oral pharynx no lesions Neck: no nodes, no JVD, supple, full ROM diminished in bases Respiratory: no wheezing, no rales, no rhonchi, clear to auscultation bilateral Cardiovascular: RRR, no significant murmur, no rub, gallop obese Gastrointestinal: soft, non-tender, no distention, positive bowel sounds Musculoskeletal: no edema, pulses present Neurological: normal sensation, moves all 4 limbs Psychiatric: A&O x 3 Skin: normal turgor, cap refill <2 seconds Dx/Plan (1) UTI (urinary tract infection) Status: Acute Qualifiers: Urinary tract infection type: acute cystitis Comment: E.coli pansensitive, continue Levaquin 500mg daily (2) Hypothyroidism Code(s): E03.9 - HYPOTHYROIDISM, UNSPECIFIED Status: Chronic Comment: Continue Levothyroxine 137mcg daily (3) Morbid obesity Code(s): E66.01 - MORBID (SEVERE) OBESITY DUE TO EXCESS CALORIES Status: Chronic Comment: Low fat diet. Placement pending. (4) Dysphagia Code(s): R13.10 - DYSPHAGIA, UNSPECIFIED Status: Acute Qualifiers: Dysphagia type: oropharyngeal phase Qualified Code(s): R13.12 - Dysphagia, oropharyngeal phase Comment: Likely subacute due to immobility, morbid obesity, continue modified po intake, PPI (5) Chronic anticoagulation Code(s): Z79.01 - DIESEL ENGINE INSPECTOR (CURRENT) USE OF ANTICOAGULANTS Status: Chronic Comment: Continue Eliquis 5mg BID - Plan continue antibiotics, PT/OT, licensed master social worker, out of bed/ambulate Stable currently -: Continue PT/OT for mobilization -: Continue Levaquin 500mg daily -: CM assisting with SNF options -: Likely d/c in 24h * .
[2019-01-03] MEDS: Ondansetron PF 4 MG/2 ML Vial SLOW IVP PRN (20:58)
[2019-01-03] MEDS: Cyclobenzaprine 10 MG TAB PO PRN (21:24)
[2019-01-03] MEDS ORDERED: Ondansetron PF 4 MG/2 ML Vial SLOW IVP SCH (23:59)
[2019-01-04] MEDS: Acetaminophen/Codeine 30-300mg Tablet PO SCH ×2 (05:33→13:15)
[2019-01-04] MEDS: Levothyroxine Sodium 25 MCG TAB PO SCH (05:33)
[2019-01-04] MEDS: Levothyroxine Sodium 112 MCG TAB PO SCH (05:33)
[2019-01-04] MEDS: traZODone HCl 50 MG TAB PO SCH (09:57)
[2019-01-04] MEDS: Benzonatate 100 MG CAP PO SCH (09:58)
[2019-01-04] MEDS: Apixaban 5 MG TAB PO SCH (09:58)
[2019-01-04] MEDS: Trospium 20 MG TAB PO SCH (09:58)
[2019-01-04] MEDS: Dicyclomine 10 MG CAP PO SCH ×2 (09:58→13:15)
[2019-01-04] MEDS: guaiFENesin ER 600 MG TAB PO SCH (09:58)
[2019-01-04] MEDS: Metoclopramide HCl 10 MG TAB PO SCH (09:58)
[2019-01-04] MEDS: Gabapentin 400 MG CAP PO SCH (09:58)
--- NOTE | 2019-01-04 10:58 | DIS ---
DATE OF ADMISSION: 12/27/2018 DATE OF DISCHARGE: 01/04/2019 DISCHARGE DIAGNOSES: 1. Urinary tract infection with Escherichia coli, pansensitive. 2. Hypothyroidism, stable. 3. Morbid obesity. 4. Generalized weakness with physical deconditioning. 5. Chronic anticoagulation with Eliquis. 6. Chronic atrial fibrillation, rate controlled. 7. Urinary incontinence. CONSULTATIONS: None. PERTINENT LAB AND X-RAY FINDINGS: Basic metabolic profile within normal limits. CBC showed a hemoglobin ranging between 10.3 to 11.1. Urine culture dated 12/31/2018 showed greater than 100,000 colonies of E coli pansensitive. Four views of the left knee dated 12/27/2018 showed severe medial compartment degenerative disease. CT of the left knee dated 12/27/2018 showed severe medial compartment degenerative changes. No acute displaced fracture. Abdominal radiographs dated 12/28/2018 showed no acute process. Portable chest x-ray dated 12/31/2018 showed no acute cardiopulmonary process. HOSPITAL COURSE: The patient was initially admitted after presenting status post mechanical fall with complaints of knee pain. The patient with recent admission and discharge to shelter to continue physical and occupational therapy with recent discharge home. The patient returned home, however, sustained mechanical fall within 24 hours of returning home. Returning to the emergency room for evaluation. The patient underwent radiographic evaluation of the left knee showing no acute process with severe degenerative changes. The patient with limited mobility status and morbid obesity complicating her gait. The patient did continue to receive general supportive management through the hospital course and received Levaquin for urinary tract infection with E coli. Due to patient's overall comorbid status, deconditioning and recent falls, the patient was evaluated for ongoing skilled care to receive physical and occupational therapy. The patient has been approved for swing bed at [facility] and will transition from acute inpatient care on 01/04/2019. I have examined the patient at the time of discharge and discussed followup instructions. The patient verbalized understanding and agreement ready for discharge 01/04/2019. DISCHARGE MEDICATIONS: 1. Tylenol No. 3, 300/30 mg one tablet p.o. q.8 hours p.r.n. 2. Tessalon Perles 100 mg p.o. daily p.r.n. 3. Flexeril 10 mg p.o. t.i.d. p.r.n. 4. Gabapentin 400 mg p.o. t.i.d. 5. Levothyroxine 137 mcg p.o. daily. 6. Reglan 10 mg p.o. b.i.d. 7. Ditropan 10 mg p.o. b.i.d. 8. Protonix 40 mg p.o. daily. 9. Detrol LA 4 mg p.o. daily. 10. Trazodone 100 mg p.o. daily. 11. Eliquis 5 mg p.o. b.i.d. 12. Cardizem CD 240 mg p.o. daily. 13. DuoNeb 3 mL nebulized q.4 hours p.r.n. 14. Levaquin 500 mg p.o. daily until 01/08/2019. 15. Nystatin powder 15 g topically b.i.d. p.r.n. FOLLOWUP: The patient may follow up with her primary care provider, Dr. Danny Barksdale after discharge from [facility]. CONDITION ON DISCHARGE: Fair. ACTIVITY: Ad rajat, rolling walker with contact guard assistance, and fall risk precautions. DIET: Heart healthy. CODE STATUS: Full. DISPOSITION: Discharged to [facility], 01/04/2019. Job ID: [id number]
[2019-01-04 11:41] VITALS: BP 113/59; TEMP 97.9
[2019-01-04] MEDS: Ondansetron PF 4 MG/2 ML Vial SLOW IVP PRN (13:17)
== END 2019-01-04 13:25 | disposition swing bed (61) ==
LOC: ERS 16:24 → SURG A 19:49
PROVIDERS: ADMIT Internal Medicine; ATTEND Internal Medicine
DX: M25.562 Pain in left knee (principal); N30.00 Acute cystitis without hematuria; B96.20 Unspecified Escherichia coli [E. coli] as the cause of diseases classified elsewhere; I10 Essential (primary) hypertension; J44.9 Chronic obstructive pulmonary disease, unspecified; G89.29 Other chronic pain; M54.2 Cervicalgia; M54.9 Dorsalgia, unspecified; E03.9 Hypothyroidism, unspecified; K21.9 Gastro-esophageal reflux disease without esophagitis; F41.9 Anxiety disorder, unspecified; I48.2 Chronic atrial fibrillation; R32 Unspecified urinary incontinence; K59.09 Other constipation; R53.81 Other malaise; M19.90 Unspecified osteoarthritis, unspecified site; E66.01 Morbid (severe) obesity due to excess calories; Z68.44 Body mass index [BMI] 60.0-69.9, adult; Z99.81 Dependence on supplemental oxygen; Z88.2 Allergy status to sulfonamides; Z91.041 Radiographic dye allergy status; Z79.899 Other long term (current) drug therapy; Z79.01 Long term (current) use of anticoagulants; W19.XXXA Unspecified fall, initial encounter
CPT/HCPCS: 51702; 71045; 73564; 73700; 74018; 80048 ×4; 80053; 81001; 85025 ×5; 87077; 87086; 87186; 94640 ×9; 96374; 96375; 96376; 97110 ×2; 97116 ×2; 97139; 97530 ×3; 99285; G0378 ×3; 36415; J1956; J2405; J7620; J8597; Q0163

== ENCOUNTER 2019-07-08 14:40 | Observation (INO) | payer MEDICARE ==
[2019-07-08 15:15] LABS: #Eosinphils 0.1 thou/uL (0.0-0.7); #Lymphocytes 1.9 thou/uL (1.20-3.40); #Monocytes 0.4 thou/uL (0.11-0.59); #Neutrophils 4.5 thou/uL (1.40-6.50); %Basophils 0.3 % (0.0-1.0); %Eosinophils 1.5 % (0.0-10.0); %Lymphocytes 27.2 % (21.0-51.0); %Monocytes 5.8 % (0.0-10.0); %Neutrophils 65.3 % (42.0-75.0); Hemoglobin 11.6 g/dL (12.0-16.0); Mean Corpuscular HGB CONC 33.6 g/dL (32.0-36.0); Mean Corpuscular Hemoglobin 29.1 pg (27.0-31.0); Mean Corpuscular Volume 86.6 fL (78.0-98.0); Mean Platelet Volume 7.8 fL (7.4-10.4); Platelet Count 255 thou/uL (130-400); RBC Distribution Width 13.6 % (11.5-14.5); Red Blood Cell (RBC) Count 3.99 mill/uL (4.20-5.40); White Blood Cell (WBC) Count 6.9 thou/uL (4.8-10.8)
--- NOTE | 2019-07-08 15:25 | RAD ---
Chest AP view INDICATION: Difficulty breathing COMPARISON: 12/31/2018 FINDINGS: Lungs:Chronic lung changes are stable. No consolidation is evident. Cardiac silhouette:Heart size is accentuated by exam technique. Pulmonary vasculature:Normal Pleural spaces:No pleural effusion or pneumothorax is demonstrated. Upper abdomen:No abnormality seen. Osseous structures: No acute osseous abnormality. Additional findings:None. IMPRESSION: No acute cardiopulmonary abnormality. Stable chronic lung changes.
[2019-07-08 15:43] LABS: ALT (SGPT) Less than 7 U/L (8-55); AST (SGOT) 11 U/L (5-34); Albumin 3.9 g/dL (3.4-4.8); Alkaline Phosphatase 72 U/L (40-110); Anion Gap 13 mmol/L (10-20); BUN (Urea Nitrogen) 18 mg/dL (9.8-20.1); Bilirubin, Total 0.3 mg/dL (0.2-1.2); Calc. Creatinine Clearance 0 mL/min (70-130); Calcium 9.2 mg/dL (7.8-10.44); Carbon Dioxide 27 mmol/L (23-31); Chloride 102 mmol/L (98-107); Estimated GFR-MDRD 53; Globulin 2.8 g/dL (2.4-3.5); Glucose 177 mg/dL (80-115); Potassium 4.3 mmol/L (3.5-5.1); Protein, Total 6.7 g/dL (6.0-8.3); Sodium 138 mmol/L (136-145)
[2019-07-08 16:35] LABS: Bacteria/HPF None Seen HPF (None Seen); Bilirubin Negative (Negative); Blood, Urine Trace (Negative); Clarity Clear (Clear); Glucose, Urine (Dipstick) Normal (Negative); Leukocyte 75 Leu/uL (Negative); Nitrite Negative (Negative); Protein, Urine (Dipstick) 20 mg/dL (Neg-Trace)
[2019-07-08] MEDS ORDERED: predniSONE 20 MG TAB ONE (17:56)
[2019-07-08] MEDS ORDERED: hydrALAZINE 20 MG/ML VIAL ONE (18:06)
[2019-07-08] MEDS ORDERED: Levofloxacin 500 mg/D5W 100 ml Premix Bag ONE (18:18)
[2019-07-08] MEDS ORDERED: Nitroglycerin 2% Ointment 1 INCH/1 GM Packet ONE (19:03)
[2019-07-08] MEDS ORDERED: methylPREDNISolone Sod Succ 40 MG VIAL ONE (19:03)
[2019-07-08] MEDS ORDERED: Acetaminophen 650 MG Suppository PR PRN (19:34)
[2019-07-08] MEDS ORDERED: Ondansetron PF 4 MG/2 ML Vial IVP PRN (19:34)
[2019-07-08] MEDS ORDERED: hydrALAZINE 20 MG/ML VIAL SLOW IVP PRN (19:38)
[2019-07-08] MEDS ORDERED: Losartan 25 MG TAB PO SCH (20:00)
--- NOTE | 2019-07-08 20:12 | PDOC.HHP ---
Hospitalist Results - Labs Result Diagrams: 07/08/19 14:59 07/08/19 14:59 Lab results: WBC 6.9 thou/uL (4.8-10.8) 07/08/19 14:59 Hgb 11.6 g/dL (12.0-16.0) L 07/08/19 14:59 Hct 34.5 % (36.0-47.0) L 07/08/19 14:59 MCV 86.6 fL (78.0-98.0) 07/08/19 14:59 Plt Count 255 thou/uL (130-400) 07/08/19 14:59 Neutrophils % 65.3 % (42.0-75.0) 07/08/19 14:59 Sodium 138 mmol/L (136-145) 07/08/19 14:59 Potassium 4.3 mmol/L (3.5-5.1) 07/08/19 14:59 Chloride 102 mmol/L (98-107) 07/08/19 14:59 Carbon Dioxide 27 mmol/L (23-31) 07/08/19 14:59 BUN 18 mg/dL (9.8-20.1) 07/08/19 14:59 Creatinine 1.04 mg/dL (0.6-1.1) 07/08/19 14:59 Glucose 177 mg/dL (80-115) H 07/08/19 14:59 Calcium 9.2 mg/dL (7.8-10.44) 07/08/19 14:59 Total Bilirubin 0.3 mg/dL (0.2-1.2) 07/08/19 14:59 AST 11 U/L (5-34) 07/08/19 14:59 ALT Less than 7 U/L (8-55) L 07/08/19 14:59 Alkaline Phosphatase 72 U/L (40-110) 07/08/19 14:59 Creatine Kinase 149 U/L (29-168) 07/08/19 14:59 Troponin I 0.021 ng/mL (< 0.028) 07/08/19 14:59 B-Natriuretic Peptide Less than 10.0 pg/mL (0-100) 07/08/19 14:59 Serum Total Protein 6.7 g/dL (6.0-8.3) 07/08/19 14:59 Albumin 3.9 g/dL (3.4-4.8) 07/08/19 14:59 Urine Ketones Negative mg/dL (Negative) 07/08/19 16:15 Urine Blood Trace (Negative) A 07/08/19 16:15 Urine Nitrite Negative (Negative) 07/08/19 16:15 Ur Leukocyte Esterase 75 Luke/uL (Negative) A 07/08/19 16:15 Urine RBC 4-6 HPF (0-3) A 07/08/19 16:15 Urine WBC 4-6 HPF (0-3) A 07/08/19 16:15 Ur Squamous Epith Cells 11-20 HPF (0-3) A 07/08/19 16:15 Urine Bacteria None Seen HPF (None Seen) 07/08/19 16:15
[2019-07-08] MEDS ORDERED: Bacteriostatic Water 30 ML VIAL FS PRN (20:15)
--- NOTE | 2019-07-08 20:22 | HP ---
PRIMARY CARE PROVIDER: Dr. Danny Barksdale. CHIEF COMPLAINT: Shortness of breath. HISTORY OF PRESENT ILLNESS: Ms. Flores is a pleasant 69-year-old lady, who was seen at [facility] on July 08, 2019. She reports that she was diagnosed in the past with both asthma and COPD. She reports that she has had cough over the last 3 days. She describes it as a deep, barking cough, dry. She denies any recent steroid use or antibiotic use. She reports wheezing since today morning. She reports shortness of breath with exertion. She tried her nebulizer and rescue inhaler and continued to be short of breath. She therefore presented to the emergency room. She reports that she uses 3 L/minute of oxygen at home. She denies any fevers or chills. She denies any nausea, vomiting, or diarrhea. She denies any dysuria or increased frequency of urination. REVIEW OF SYSTEMS: All systems were reviewed and found to be negative except for the pertinent positives mentioned above. PAST MEDICAL HISTORY: Hypertension, asthma, COPD, urinary incontinence, hypothyroidism, gastroesophageal reflux disease, urinary tract infection, chronic back pain, CHF. SURGICAL HISTORY: Cardiac catheterization, right Achilles heel repair, tonsillectomy, adenoidectomy. PSYCHIATRIC HISTORY: Anxiety. SOCIAL HISTORY: The patient denies tobacco use, alcohol use, or recreational drug use. CODE STATUS: I discussed her code status. She is full code. FAMILY HISTORY: Father had congestive heart failure and COPD. Mother had cerebrovascular accident and congestive heart failure. ALLERGIES: IODINE AND SULFA. CURRENT MEDICATIONS: 1. Trazodone 300 mg daily. 2. Losartan 50 mg daily. 3. Pantoprazole 40 mg daily. 4. Reglan 10 mg two times a day. 5. Cyclobenzaprine 10 mg daily. 6. Gabapentin 400 mg three times a day. 7. Tylenol No. 3 p.r.n. PHYSICAL EXAMINATION: GENERAL: Ms. Flores is awake and alert, not in acute distress. She is morbidly obese. VITAL SIGNS: Blood pressure is 159/104, pulse 68, respiratory rate 17, and oxygen saturation 100% on 3 L of oxygen. She is afebrile. EYES: No scleral icterus, no conjunctival pallor. ENT: Moist mucosal membranes. No oropharyngeal erythema or exudates. NECK: Supple, nontender, trachea is midline. RESPIRATORY: Accessory muscles of breathing are mildly active. Chest wall movements are symmetric bilaterally. Lung examination reveals occasional expiratory wheeze. Diminished breath sounds at bases. CARDIOVASCULAR: S1 and S2 are heard, regular. Peripheral pulses palpable. SKIN: No rashes or subcutaneous nodules. LYMPHATIC: No cervical lymphadenopathy. NEUROLOGIC: Cranial nerves 2 through 12 are intact. MUSCULOSKELETAL: Power is 5/5 in all 4 extremities. She has trace bilateral lower extremity edema. PSYCHIATRIC: Normal affect, normal mood, the patient is oriented to person, place, and time. DIAGNOSTIC STUDIES: Ms. Flores is labs and investigations were reviewed. She had a chest x-ray, which did not show any pulmonary infiltrates. She has normal white count, normocytic anemia with hemoglobin 11.6, normal platelet count, normal electrolytes, normal creatinine, unremarkable LFTs, and urinalysis that is negative for nitrite, positive for 75 leukocytes per microliter. ASSESSMENT AND PLAN: Ms. Flores is a pleasant 69-year-old lady, who was seen at [facility] on July 08, 2019. Her problem list includes: 1. Acute on chronic hypoxic respiratory failure: Ms. Flores is presenting with acute on chronic hypoxic respiratory failure secondary to chronic obstructive pulmonary disease exacerbation/asthma exacerbation. She will be admitted to the hospital for further management. 2. Chronic obstructive pulmonary disease exacerbation: She will be treated with oxygen, steroids, bronchodilators, and antibiotics in the form of ceftriaxone and azithromycin. 3. Gastroesophageal reflux disease: Stable. 4. Urinary tract infection: Urinalysis is mildly suggestive of urinary tract infection. The patient has urinary incontinence. We will request urinary cultures. As mentioned, she will receive ceftriaxone. 5. Hypertension: Resume home medications, monitor vital signs and titrate antihypertensives as needed. Many thanks for allowing me to participate in your patient's care. Please feel free to contact me with any questions or concerns. LEVEL OF RISK: Moderate. LEVEL OF COMPLEXITY: Moderate. Job ID: [id number]
[2019-07-08] MEDS ORDERED: Azithromycin 500 MG in Sodium Chloride 0.9% 250 ML 250 ML IVPB SCH (21:00)
[2019-07-08 21:14] VITALS: BMI 66.5
[2019-07-08] MEDS ORDERED: cefTRIAXone\\ROCEPHIN 1 GM in Sodium Chloride 0.9% 100 ML IVPB SCH (22:00)
[2019-07-08] MEDS: Acetaminophen/Codeine 30-300mg Tablet PO SCH (22:28)
[2019-07-08] MEDS ORDERED: Gabapentin 400 MG CAP PO SCH (22:30)
[2019-07-08] MEDS ORDERED: Cyclobenzaprine 10 MG TAB PO SCH (22:30)
[2019-07-08] MEDS ORDERED: Apixaban 5 MG TAB PO SCH (22:30)
[2019-07-08] MEDS ORDERED: Metoclopramide HCl 10 MG TAB PO SCH (22:30)
[2019-07-08] MEDS ORDERED: traZODone HCl 50 MG TAB PO SCH (22:30)
[2019-07-08] MEDS: Acetaminophen 325 MG TAB PO PRN (23:37)
[2019-07-08] MEDS: methylPREDNISolone Sod Succ 40 MG VIAL IVP SCH (23:58)
[2019-07-09] MEDS: Acetaminophen 325 MG TAB PO PRN (03:43)
[2019-07-09 05:57] LABS: #Basophils 0.2 thou/uL (0.0-0.2); #Lymphocytes 0.9 thou/uL (1.20-3.40); #Neutrophils 5.8 thou/uL (1.40-6.50); %Basophils 2.7 % (0.0-1.0); %Eosinophils 0.4 % (0.0-10.0); %Lymphocytes 13.5 % (21.0-51.0); %Monocytes 0.6 % (0.0-10.0); %Neutrophils 82.8 % (42.0-75.0); Hemoglobin 11.8 g/dL (12.0-16.0); Mean Corpuscular HGB CONC 33.5 g/dL (32.0-36.0); Mean Corpuscular Hemoglobin 28.9 pg (27.0-31.0); Mean Corpuscular Volume 86.3 fL (78.0-98.0); Platelet Count 261 thou/uL (130-400); RBC Distribution Width 13.4 % (11.5-14.5); Red Blood Cell (RBC) Count 4.09 mill/uL (4.20-5.40)
[2019-07-09] MEDS: methylPREDNISolone Sod Succ 40 MG VIAL IVP SCH ×2 (05:59→12:17)
[2019-07-09] MEDS ORDERED: Levothyroxine Sodium 100 MCG TAB PO SCH (06:00)
[2019-07-09] MEDS: Acetaminophen/Codeine 30-300mg Tablet PO SCH ×2 (06:24→07:51)
[2019-07-09 06:33] LABS: Anion Gap 14 mmol/L (10-20); BUN (Urea Nitrogen) 16 mg/dL (9.8-20.1); Calc. Creatinine Clearance 165 mL/min (70-130); Calcium 9.2 mg/dL (7.8-10.44); Carbon Dioxide 24 mmol/L (23-31); Chloride 102 mmol/L (98-107); Estimated GFR-MDRD 56; Glucose 188 mg/dL (80-115); Potassium 4.3 mmol/L (3.5-5.1); Sodium 136 mmol/L (136-145)
[2019-07-09] MEDS: Gabapentin 400 MG CAP PO SCH ×2 (07:51→14:15)
[2019-07-09] MEDS ORDERED: Apixaban 5 MG TAB PO SCH (09:00)
[2019-07-09] MEDS ORDERED: Losartan 25 MG TAB PO SCH (09:00)
[2019-07-09] MEDS ORDERED: Trospium 20 MG TAB PO SCH (09:00)
[2019-07-09] MEDS ORDERED: Enoxaparin Sodium 40 MG/0.4 ML SYRINGE SC SCH (09:00)
[2019-07-09 11:48] VITALS: BP 150/79; TEMP 98
--- NOTE | 2019-07-09 12:33 | HP ---
ADDENDUM: On further questioning, Ms. Flores reports that she has a history of paroxysmal atrial fibrillation. She does not see a pipe fitter gas pipe. She reportedly takes apixaban and other medications. These medications will need to be clarified. Once they are clarified, they can be resumed. Please note that the child care specialist in the emergency room is showing normal sinus rhythm. Job ID: [id number]
[2019-07-09] MEDS ORDERED: Cefdinir 300 MG CAP PO SCH (13:00)
--- NOTE | 2019-07-09 16:47 | DIS ---
DATE OF ADMISSION: 07/08/2019 DATE OF DISCHARGE: 07/09/2019 PRIMARY CARE PROVIDER: Danny Barksdale DO DISCHARGE DIAGNOSES: 1. Acute on chronic hypoxic respiratory failure. 2. Chronic obstructive pulmonary disease exacerbation. 3. Urinary tract infection. CONDITION: Condition of the patient on the day of discharge: Stable. I assessed Ms. Flores on the day of discharge. She reports feeling better. She denies any chest pain. Shortness of breath is better. Vital signs are stable. S1 and S2 are heard, regular. Lungs are clear to auscultation bilaterally. DISCHARGE MEDICATIONS: She is being discharged home on oral prednisone taper and cefdinir 300 mg 2 times a day for 1 week. Otherwise, no change was made to her pre-admission home medications, which include; 1. Tylenol No. 3 p.r.n. 2. Tessalon p.r.n. 3. Flexeril 10 mg at bedtime. 4. Gabapentin 400 mg 3 times a day. 5. Magnesium citrate 300 mg daily as needed. 6. Reglan 10 mg at bedtime. 7. Protonix 40 mg at bedtime. 8. MiraLAX 17 g daily. 9. Fleet Enema as needed. 10. Detrol LA 4 mg daily. 11. Trazodone 100 mg at bedtime. 12. DuoNeb p.r.n. 13. Apixaban 5 mg 2 times a day. 14. Diltiazem 240 mg daily. 15. Flonase 1 g nasally to both nares. 16. Synthroid 200 mcg daily. HOSPITAL COURSE: Ms. Flores is a pleasant 69-year-old lady, who was admitted to [facility] for acute on chronic hypoxic respiratory failure and urinary tract infection and COPD exacerbation on July 08, 2019. Please refer to my history and physical note dated July 08, 2019, for further details. She was treated with oxygen, steroids, bronchodilators, and antibiotics. She is being discharged home in a stable condition. She uses home oxygen. She has been advised to follow up with primary care provider in 3 to 5 days time for final urine culture result. Many thanks for allowing me to participate in your the patient's care. Please feel free to contact me with any questions or concerns. FOLLOWUP APPOINTMENTS: The patient advised to follow up with primary care provider in 3 to 5 days' time. DISCHARGE DESTINATION: Home. Job ID: [id number]
[2019-07-09] MEDS ORDERED: Cyclobenzaprine 10 MG TAB PO SCH (21:00)
[2019-07-09] MEDS ORDERED: Metoclopramide HCl 10 MG TAB PO SCH (21:00)
[2019-07-09] MEDS ORDERED: traZODone HCl 50 MG TAB PO SCH (21:00)
== END 2019-07-09 14:58 | disposition home or self-care (01) ==
LOC: ERS 14:40 → T4-B 18:56
PROVIDERS: ADMIT Internal Medicine; ATTEND Internal Medicine
DX: J96.21 Acute and chronic respiratory failure with hypoxia (principal); J44.1 Chronic obstructive pulmonary disease with (acute) exacerbation; N39.0 Urinary tract infection, site not specified; E03.9 Hypothyroidism, unspecified; I11.0 Hypertensive heart disease with heart failure; I50.9 Heart failure, unspecified; F41.9 Anxiety disorder, unspecified; Z79.899 Other long term (current) drug therapy; Z91.041 Radiographic dye allergy status; Z88.2 Allergy status to sulfonamides; Z99.89 Dependence on other enabling machines and devices
CPT/HCPCS: 36415; 51701; 71045; 80048; 80053; 81003; 81015; 82550; 83880; 84484; 85025; 87086; 93005; 94640; 96365; 96367; 96375; 96376; A4353; G0378; J0360; J0456; J0696; J1956; J2920; J3490; J7050; J7512; J7620; J8597

== ENCOUNTER 2019-09-22 17:53 | Emergency (ER) | payer MEDICARE ==
[2019-09-22] MEDS ORDERED: HYDROcodone/Acetaminophen 10/325 mg Tablet ONE (18:39)
[2019-09-22 18:58] LABS: #Lymphocytes 1.3 thou/uL (1.20-3.40); #Monocytes 0.3 thou/uL (0.11-0.59); #Neutrophils 7.5 thou/uL (1.40-6.50); %Basophils 0.2 % (0.0-1.0); %Eosinophils 0.2 % (0.0-10.0); %Lymphocytes 14.6 % (21.0-51.0); %Monocytes 3.4 % (0.0-10.0); %Neutrophils 81.5 % (42.0-75.0); Mean Corpuscular HGB CONC 28.4 g/dL (32.0-36.0); Mean Corpuscular Hemoglobin 25.4 pg (27.0-31.0); Mean Corpuscular Volume 89.7 fL (78.0-98.0); Mean Platelet Volume 8.5 fL (7.4-10.4); Platelet Count 275 thou/uL (130-400); RBC Distribution Width 13.6 % (11.5-14.5); Red Blood Cell (RBC) Count 4.31 mill/uL (4.20-5.40); White Blood Cell (WBC) Count 9.2 thou/uL (4.8-10.8)
[2019-09-22 19:02] LABS: INR-International Normal Ratio 2.9; PTT 35.4 SEC (22.9-36.1); Prothrombin Time 29.9 SEC (12.0-14.7)
[2019-09-22 19:16] LABS: ALT (SGPT) Less than 7 U/L (8-55); AST (SGOT) 9 U/L (5-34); Albumin 4.1 g/dL (3.4-4.8); Alkaline Phosphatase 80 U/L (40-110); Anion Gap 12 mmol/L (10-20); BUN (Urea Nitrogen) 24 mg/dL (9.8-20.1); Bilirubin, Total 0.3 mg/dL (0.2-1.2); Calc. Creatinine Clearance 0 mL/min (70-130); Calcium 9.2 mg/dL (7.8-10.44); Carbon Dioxide 29 mmol/L (23-31); Chloride 101 mmol/L (98-107); Estimated GFR-MDRD 51; Globulin 2.9 g/dL (2.4-3.5); Glucose 220 mg/dL (80-115); Potassium 4.5 mmol/L (3.5-5.1); Sodium 137 mmol/L (136-145)
--- NOTE | 2019-09-22 19:26 | CT ---
Exam: CT brain PROVIDED CLINICAL HISTORY: Fall COMPARISON: None FINDINGS: The ventricular system is normal in size and morphology. No evidence for intracranial hemorrhage or mass effect. The extracranial soft tissues and osseous structures demonstrate no evidence for an acute abnormality. IMPRESSION: No evidence for intracranial hemorrhage or mass effect.
--- NOTE | 2019-09-22 19:43 | CT ---
EXAM: CT cervical spine PROVIDED CLINICAL HISTORY: Trauma COMPARISON: None FINDINGS: No evidence for fracture or traumatic subluxation. No prevertebral soft tissue swelling apparent. Pr ominently medialized course of both cervical segment common carotid arteries. Cervical degenerative changes are seen. IMPRESSION: No evidence for fracture or traumatic subluxation.
== END 2019-09-22 21:15 | disposition home or self-care (01) ==
LOC: ERS 17:53
DX: R51 Headache (principal); M25.562 Pain in left knee; I11.0 Hypertensive heart disease with heart failure; I50.9 Heart failure, unspecified; E03.9 Hypothyroidism, unspecified; K21.9 Gastro-esophageal reflux disease without esophagitis; J44.9 Chronic obstructive pulmonary disease, unspecified; F41.9 Anxiety disorder, unspecified; Z79.899 Other long term (current) drug therapy; Z79.01 Long term (current) use of anticoagulants; W18.30XA Fall on same level, unspecified, initial encounter
CPT/HCPCS: 36415; 70450; 72125; 80053; 85025; 85610; 85730

== ENCOUNTER 2019-10-27 16:27 | Observation (INO) | payer MEDICARE ==
[2019-10-27 17:24] LABS: #Eosinphils 0.1 thou/uL (0.0-0.7); #Lymphocytes 1.6 thou/uL (1.20-3.40); #Monocytes 0.5 thou/uL (0.11-0.59); #Neutrophils 5.2 thou/uL (1.40-6.50); %Basophils 0.2 % (0.0-1.0); %Eosinophils 1.2 % (0.0-10.0); %Lymphocytes 21.6 % (21.0-51.0); %Neutrophils 70.1 % (42.0-75.0); Hemoglobin 10.4 g/dL (12.0-16.0); Mean Corpuscular HGB CONC 32.5 g/dL (32.0-36.0); Mean Corpuscular Hemoglobin 27.8 pg (27.0-31.0); Mean Corpuscular Volume 85.6 fL (78.0-98.0); Mean Platelet Volume 7.7 fL (7.4-10.4); Platelet Count 268 thou/uL (130-400); RBC Distribution Width 13.8 % (11.5-14.5); Red Blood Cell (RBC) Count 3.73 mill/uL (4.20-5.40); White Blood Cell (WBC) Count 7.4 thou/uL (4.8-10.8)
[2019-10-27] MEDS ORDERED: Aspirin Chewable 81 MG TAB ONE (17:35)
[2019-10-27] MEDS ORDERED: Nitroglycerin 2% Ointment 1 INCH/1 GM Packet ONE (17:35)
--- NOTE | 2019-10-27 17:37 | RAD ---
Exam: Chest one view HISTORY:Severe chest pain. Dyspnea. Comparison: 07/08/2019 FINDINGS: Cardiac silhouette:Enlarged cardiac silhouette due to portable technique Aorta: Unremarkable Pulmonary vessels: Normal Costophrenic angles: Clear LUNGS: Diminished lung is, due to poor inspiratory effort. No mass or consolidation. Pneumothorax: None Osseous abnormalities: None IMPRESSION: No acute cardiopulmonary process.
[2019-10-27 17:50] LABS: ALT (SGPT) Less than 7 U/L (8-55); AST (SGOT) 14 U/L (5-34); Albumin 3.8 g/dL (3.4-4.8); Alkaline Phosphatase 76 U/L (40-110); Anion Gap 14 mmol/L (10-20); BUN (Urea Nitrogen) 13 mg/dL (9.8-20.1); Bilirubin, Total 0.3 mg/dL (0.2-1.2); Calc. Creatinine Clearance 0 mL/min (70-130); Calcium 8.6 mg/dL (7.8-10.44); Carbon Dioxide 29 mmol/L (23-31); Chloride 99 mmol/L (98-107); Estimated GFR-MDRD 61; Globulin 2.5 g/dL (2.4-3.5); Glucose 147 mg/dL (80-115); Lipase 7 U/L (8-78); Potassium 4.4 mmol/L (3.5-5.1); Protein, Total 6.3 g/dL (6.0-8.3); Sodium 138 mmol/L (136-145)
[2019-10-27 18:31] LABS: Bacteria/HPF None Seen HPF (None Seen); Bilirubin Negative (Negative); Blood, Urine 1+ (Negative); Clarity Clear (Clear); Glucose, Urine (Dipstick) Normal (Negative); Leukocyte 75 Leu/uL (Negative); Nitrite Negative (Negative); Protein, Urine (Dipstick) 20 mg/dL (Neg-Trace); Squamous Epithelial 0-3 HPF (0-3)
[2019-10-27 20:31] LABS: Troponin I Less than 0.010 ng/mL (< 0.028)
[2019-10-27] MEDS ORDERED: Ondansetron PF 4 MG/2 ML Vial IVP PRN (22:19)
[2019-10-27] MEDS ORDERED: Ondansetron ODT 4 MG TAB SL PRN (22:19)
[2019-10-27 22:44] VITALS: BMI 68.8
[2019-10-27 23:49] LABS: Troponin I Less than 0.010 ng/mL (< 0.028)
[2019-10-28] MEDS ORDERED: Benzonatate 100 MG CAP PO PRN (01:47)
[2019-10-28] MEDS ORDERED: Acetaminophen/Codeine 30-300mg Tablet PO PRN (01:47)
[2019-10-28] MEDS ORDERED: Polyethylene Glycol 3350 17 GM Packet PO PRN (01:47)
[2019-10-28] MEDS ORDERED: Cyclobenzaprine 10 MG TAB PO SCH ×2 (02:15→21:00)
[2019-10-28] MEDS ORDERED: Gabapentin 400 MG CAP PO SCH ×2 (02:15→09:00)
[2019-10-28] MEDS ORDERED: Bisacodyl 5 MG TAB PO PRN (02:21)
[2019-10-28] MEDS ORDERED: Bisacodyl 10 MG SUPP PR PRN (02:21)
[2019-10-28] MEDS ORDERED: Acetaminophen 325 MG TAB PO PRN (02:21)
[2019-10-28] MEDS ORDERED: HYDROcodone/Acetaminophen 5/325 mg Tablet PO PRN (02:21)
--- NOTE | 2019-10-28 02:25 | PDOC.HHP ---
Hospitalist HPI - History of Present Illness chest pain, abdominal pain, pelvic pain History of Present Illness: 69F with PMH HTN, obesity, atrial fibrillation, asthma, hypothyroidism, CHF, COPD, GERD who presents to ED with CC of abdominal pain, pelvic pain, chest pain. chest pain transient and resolved, noted in ED to have had a ~1 minute spell atrial fibrillation, deedee does not see sourcing manager for this but it is a chronic problem. her abdominal pain is different, also chronic, LUQ mostly and epigastric, worse after she eats, no bloody or melanotic stool reported, she has gallbladder, still never had gallbladder issues, she takes PPI daily for GERD. She also complains of pelvic pain, she states is exactly like previous UTIs with dysuria and frequency noted, in ED UA with positive infectious markers, recieved ASA/nitropaste/duoneb, CXR without acute findings, patient to be admitted for further workup and management ED Course: CURRENT MEDICATIONS [facility] Oct 27, 2019 17:45 DELMY Benoit Luke traZODone TABLET : Strength - 300 mg : ORAL Patient Dose: 300 mg Oral once a day. pantoprazole oral TABLET, DELAYED RELEASE (ENTERIC COATED) : Strength - 40 mg : ORAL Patient Dose: 40 mg Oral once a day. metoclopramide oral TABLET : Strength - 10 mg : ORAL Patient Dose: 10 mg Oral 2 times a day. cyclobenzaprine TABLET : Strength - 10 mg : ORAL Patient Dose: 10 mg Oral once a day. gabapentin CAPSULE : Strength - 400 mg : ORAL Patient Dose: 400 mg Oral 3 times a day. Coumadin oral tablet : Strength - 1 mg : ORAL Patient Dose: Unknown.unknown amount. Tylenol-Codeine #3 tablet : Strength - 300 mg-30 mg : ORAL Patient Dose: 1 tab(s) Oral every 6 hours PRN. levothyroxine oral tablet : Strength - 112 mcg : ORAL Patient Dose: 112 mcg Oral once a day (in the morning). VITAL SIGNS [facility] Oct 27, 2019 16:47 DELMY Benoit Luke BP: 173/91 Pulse: 81 Resp: 18 Temp: 98.5 (Oral) O2 sat: 94 on (4L Oxygen) Time: 10/27/2019 16:47. Hospitalist ROS - Review of Systems Constitutional: reports: chills, weakness, malaise. denies: fever, sweats Eyes: denies: vision change, redness ENT: denies: mouth swelling, throat pain, throat swelling Respiratory: reports: SOB with excertion. denies: shortness of breath, hemoptysis, pleuritic pain, sputum Cardiovascular: reports: chest pain, palpitations, orthopnea. denies: edema Gastrointestinal: reports: abdominal pain. denies: nausea, vomiting, diarrhea, melena, hematochezia Genitourinary: reports: dysuria, frequency Musculoskeletal: denies: neck pain, shoulder pain, other Skin: denies: rash, lesions Neurological: denies: weakness, numbness All other systems reviewed; all pertinent +/- noted in HPI/Subj Hospitalist History - Past Medical History Other Medical History: Past medical history includes history of hypertension, which has been treated, Past medical history includes pulmonary disease, asthma. Notes: Neck and back with bulging discs with chronic pain. Past medical history includes endocrine disease, hypothyroidism, Past medical history includes gastrointestinal disease , gastroesophageal reflux disease, Past medical history includes musculoskeletal disorder, chronic back pain. CHF, COPD. - Past Surgical History Other Surgical History: Heart cath with no lesions per patient in 1996, Surgical history of orthopedic surgery, Rt achilles heel repair, Surgical history of tonsillectomy, Notes: and adnoids. thyroidectomy. - Family History Family History: reports: no pertinent history - Social History Other Social History: Patient denies alcohol use Patient denies drug use Patient has no smoking history. - Exam General Appearance: NAD, awake alert Eye: PERRL, anicteric sclera ENT: normocephalic atraumatic, no oropharyngeal lesions, moist mucosa Neck: supple, symmetric, no JVD, no thyromegaly, no lymphadenopathy, no carotid bruit Heart: RRR, no murmur, no gallops, no rubs, normal peripheral pulses Respiratory: CTAB, no wheezes, no rales, no ronchi, normal chest expansion, no tachypnea, normal percussion Gastrointestinal: soft, non-tender, non-distended, normal bowel sounds, no palpable masses, no hepatomegaly, no splenomegaly, no bruit Extremities: no cyanosis, no clubbing, no edema Skin: normal turgor, no lesions, no rashes Neurological: cranial nerve grossly intact, normal sensation to touch, no weakness, no focal deficits, no new deficit Musculoskeletal: normal tone Psychiatric: normal affect, normal behavior, A&O x 3 Hospitalist Results - Labs Result Diagrams: 10/28/19 04:00 10/28/19 04:00 Lab results: WBC 7.4 thou/uL (4.8-10.8) 10/27/19 17:12 Hgb 10.4 g/dL (12.0-16.0) L 10/27/19 17:12 Hct 32.0 % (36.0-47.0) L 10/27/19 17:12 MCV 85.6 fL (78.0-98.0) 10/27/19 17:12 Plt Count 268 thou/uL (130-400) 10/27/19 17:12 Neutrophils % 70.1 % (42.0-75.0) 10/27/19 17:12 Sodium 138 mmol/L (136-145) 10/27/19 17:12 Potassium 4.4 mmol/L (3.5-5.1) 10/27/19 17:12 Chloride 99 mmol/L (98-107) 10/27/19 17:12 Carbon Dioxide 29 mmol/L (23-31) 10/27/19 17:12 BUN 13 mg/dL (9.8-20.1) 10/27/19 17:12 Creatinine 0.92 mg/dL (0.6-1.1) 10/27/19 17:12 Glucose 147 mg/dL (80-115) H 10/27/19 17:12 Calcium 8.6 mg/dL (7.8-10.44) 10/27/19 17:12 Total Bilirubin 0.3 mg/dL (0.2-1.2) 10/27/19 17:12 AST 14 U/L (5-34) 10/27/19 17:12 ALT Less than 7 U/L (8-55) L 10/27/19 17:12 Alkaline Phosphatase 76 U/L (40-110) 10/27/19 17:12 Troponin I Less than 0.010 ng/mL (< 0.028) 10/27/19 23:15 B-Natriuretic Peptide Less than 10.0 pg/mL (0-100) 10/27/19 17:12 Serum Total Protein 6.3 g/dL (6.0-8.3) 10/27/19 17:12 Albumin 3.8 g/dL (3.4-4.8) 10/27/19 17:12 Lipase 7 U/L (8-78) L 10/27/19 17:12 Urine Ketones Negative mg/dL (Negative) 10/27/19 18:15 Urine Blood 1+ (Negative) A 10/27/19 18:15 Urine Nitrite Negative (Negative) 10/27/19 18:15 Ur Leukocyte Esterase 75 Luke/uL (Negative) A 10/27/19 18:15 Urine RBC 7-10 HPF (0-3) A 10/27/19 18:15 Urine WBC 4-6 HPF (0-3) A 10/27/19 18:15 Ur Squamous Epith Cells 0-3 HPF (0-3) 10/27/19 18:15 Urine Bacteria None Seen HPF (None Seen) 10/27/19 18:15 Hospitalist H&P A/P - Plan Plan: 69F with PMH HTN, obesity, atrial fibrillation, asthma, hypothyroidism, CHF, COPD, GERD who presents to ED with CC of abdominal pain, pelvic pain, chest pain. # atrial fibrillation - suspect this is cause of transient chest pain, is now resolved, does not have outpatient cardiology can conult or refer after d/c , scraper tender while here - lovenox while inpatinet, exterminator helper anticoagulation may be benefitial # LUQ pain - worse after eating, ddx gastritis, constipation, cholecystitis w/ referred pain - abdominal us - increase PPI to BID - bowel regimen - monitor for response # UTI - symptomatic, weakly positive UA - start rocephin - follow cultures # HTN - resume home meds, PRNs in chart # asthma/COPD - no wheezing on my exam, PRN duoneb # hypothyroidism - continue home synthroid, tsh/free t4 ordered # CHF - monitor fluid, I/Os # GERD - increase to BID PPI # DVT ppx - lovenox
[2019-10-28] MEDS ORDERED: traZODone HCl 50 MG TAB PO SCH ×2 (02:30→21:00)
[2019-10-28] MEDS ORDERED: Metoclopramide HCl 10 MG TAB PO SCH ×2 (02:30→21:00)
[2019-10-28] MEDS ORDERED: cefTRIAXone\\ROCEPHIN 1 GM in Sodium Chloride 0.9% 100 ML IVPB SCH (03:00)
[2019-10-28 04:32] LABS: #Eosinphils 0.1 thou/uL (0.0-0.7); #Monocytes 0.6 thou/uL (0.11-0.59); #Neutrophils 6.6 thou/uL (1.40-6.50); %Basophils 0.5 % (0.0-1.0); %Eosinophils 1.1 % (0.0-10.0); %Lymphocytes 20.9 % (21.0-51.0); %Monocytes 6.5 % (0.0-10.0); %Neutrophils 70.9 % (42.0-75.0); Mean Corpuscular HGB CONC 32.1 g/dL (32.0-36.0); Mean Corpuscular Hemoglobin 27.4 pg (27.0-31.0); Mean Corpuscular Volume 85.2 fL (78.0-98.0); Mean Platelet Volume 8.2 fL (7.4-10.4); Platelet Count 239 thou/uL (130-400); RBC Distribution Width 13.8 % (11.5-14.5); Red Blood Cell (RBC) Count 3.66 mill/uL (4.20-5.40); White Blood Cell (WBC) Count 9.3 thou/uL (4.8-10.8)
[2019-10-28 04:46] LABS: Anion Gap 9 mmol/L (10-20); BUN (Urea Nitrogen) 13 mg/dL (9.8-20.1); Calc. Creatinine Clearance 188 mL/min (70-130); Calcium 8.7 mg/dL (7.8-10.44); Carbon Dioxide 34 mmol/L (23-31); Chloride 100 mmol/L (98-107); Estimated GFR-MDRD 63; Glucose 147 mg/dL (80-115); Potassium 3.8 mmol/L (3.5-5.1); Sodium 139 mmol/L (136-145)
[2019-10-28] MEDS ORDERED: Levothyroxine Sodium 112 MCG TAB PO SCH (06:00)
[2019-10-28] MEDS ORDERED: Dextrose 5% in Water 1,000 ML IV PRN (06:11)
[2019-10-28] MEDS ORDERED: Dextrose 50% Abboject 50 ML SYRINGE SLOW IVP PRN (06:11)
[2019-10-28] MEDS ORDERED: HumaLOG 300 UNITS/3 ML VIAL SC PRN (06:11)
[2019-10-28] MEDS ORDERED: Enoxaparin Sodium 40 MG/0.4 ML SYRINGE SC SCH (09:00)
[2019-10-28] MEDS ORDERED: Fluticasone Propionate Nasal Spray 16 gm Bottle NASAL SCH (09:00)
[2019-10-28] MEDS ORDERED: Trospium 20 MG TAB PO SCH (09:00)
[2019-10-28] MEDS ORDERED: Ciprofloxacin 500 MG TAB PO SCH ×2 (10:00→20:00)
[2019-10-28] MEDS ORDERED: Sodium Chloride 0.9% 500 ML IV SCH (10:00)
[2019-10-28 11:15] VITALS: TEMP 97.9
[2019-10-28 12:02] VITALS: BP 124/61
--- NOTE | 2019-10-28 16:27 | DIS ---
DATE OF ADMISSION: 10/27/2019 DATE OF DISCHARGE: 10/28/2019 DISCHARGE DISPOSITION: Home. PRIMARY DISCHARGE DIAGNOSES: Generalized weakness and urinary tract infection. SECONDARY DISCHARGE DIAGNOSES: History of chronic atrial fibrillation, history of asthma, hypothyroidism, obesity, chronic obstructive pulmonary disease, and gastroesophageal reflux disease. PROCEDURES DONE DURING HOSPITALIZATION: Chest x-ray done showed no acute cardiopulmonary abnormalities. H and H 10 and 31, platelet count 239, MCV is 85 with 70% neutrophils. White count of 9, BUN 13, and creatinine 0.8. Troponin x3 negative. BNP 10.0. Liver enzymes are within normal limits. Albumin is 3.8, serum bicarb 29. UA was positive for UTI. Urine culture is currently pending. DISCHARGE MEDICATIONS: 1. Ciprofloxacin 500 mg p.o. twice daily for 7 days. 2. Cardizem CD 240 mg p.o. daily. 3. Trazodone 100 mg p.o. at bedtime. 4. Detrol LA 4 mg p.o. daily. 5. MiraLAX 17 g p.o. daily. 6. Protonix 40 mg p.o. at bedtime. 7. Reglan 10 mg p.o. at bedtime. 8. Synthroid 112 mcg p.o. daily. 9. Gabapentin 400 mg p.o. twice daily. 10. Flexeril 10 mg p.o. at bedtime. 11. Tylenol No.3 p.r.n. q.8h hourly. ALLERGIES: SULFA AND IODINE. DISCHARGE PLAN: The patient to follow up with Dr. Danny Barksdale, in 1 week. She is advised to follow up her urine culture with Dr. Danny Barksdale. The results will be faxed to him. BRIEF COURSE DURING HOSPITALIZATION: The patient initially came in with complaints of generalized pain including her chest, abdomen, and pelvic area. She knew she had urinary tract infection. She has history of chronic atrial fibrillation and has seen Dr. Nolan in the past year, but has not had any outpatient followup with her. The patient was mildly dehydrated and was given half a liter bolus fluid. Three sets of cardiac enzymes were negative. The patient did not have any abdominal tenderness or rigidity on clinical exam. Her urine culture is currently pending. She has ambulated with Physical therapy in the room with a rolling walker. She is hemodynamically stable and will be shortly discharged home. Please fax urine culture results to Dr. Danny barksdale, her primary care physician. Please note, I have seen and examined the patient on the day of discharge. Job ID: [id number]
--- NOTE | 2019-10-29 12:03 | EKG ---
Test Reason : Blood Pressure : / mmHG Vent. Rate : 079 BPM Atrial Rate : 079 BPM P-R Int : 152 ms QRS Dur : 084 ms QT Int : 396 ms P-R-T Axes : 060 -10 017 degrees QTc Int : 454 ms Normal sinus rhythm Normal ECG Confirmed by ANGEL OLSEN MD ([id number]), map editor MENA SWAIN ([id number]) on 10/29/2019 12:02:44 PM Referred By: Confirmed By:ANGEL OLSEN MD
== END 2019-10-28 14:10 | disposition home or self-care (01) ==
LOC: ERS 16:27 → 2NO 19:32
PROVIDERS: ADMIT Internal Medicine; ATTEND Internal Medicine
DX: N39.0 Urinary tract infection, site not specified (principal); I48.20 Chronic atrial fibrillation, unspecified; E86.0 Dehydration; I11.0 Hypertensive heart disease with heart failure; I50.9 Heart failure, unspecified; E66.9 Obesity, unspecified; E89.0 Postprocedural hypothyroidism; F41.9 Anxiety disorder, unspecified; K21.9 Gastro-esophageal reflux disease without esophagitis; I82.409 Acute embolism and thrombosis of unspecified deep veins of unspecified lower extremity; Z68.44 Body mass index [BMI] 60.0-69.9, adult; Z79.01 Long term (current) use of anticoagulants; Z79.899 Other long term (current) drug therapy; Z88.2 Allergy status to sulfonamides; Z91.041 Radiographic dye allergy status
CPT/HCPCS: 51701; 71045; 80048; 80053; 83690; 83880; 84484 ×2; 85025 ×2; 85379; 87086; 93005; 94640; 96372; 96374; 97116; 97139 ×3; 99285; G0378 ×3; 36415; 81003; 81015; A4353; J0696; J1650; J3490; J7620

== ENCOUNTER 2019-12-27 15:06 | Observation (INO) | payer MEDICARE ==
[2019-12-27 15:32] LABS: #Lymphocytes 1.7 thou/uL (1.20-3.40); #Monocytes 0.5 thou/uL (0.11-0.59); %Basophils 0.1 % (0.0-1.0); %Eosinophils 0.4 % (0.0-10.0); %Lymphocytes 18.3 % (21.0-51.0); %Monocytes 5.5 % (0.0-10.0); %Neutrophils 75.7 % (42.0-75.0); Hemoglobin 10.8 g/dL (12.0-16.0); Mean Corpuscular HGB CONC 32.5 g/dL (32.0-36.0); Mean Corpuscular Hemoglobin 27.5 pg (27.0-31.0); Mean Corpuscular Volume 84.7 fL (78.0-98.0); Mean Platelet Volume 8.2 fL (7.4-10.4); Platelet Count 261 thou/uL (130-400); RBC Distribution Width 14.3 % (11.5-14.5); Red Blood Cell (RBC) Count 3.93 mill/uL (4.20-5.40); White Blood Cell (WBC) Count 9.3 thou/uL (4.8-10.8)
[2019-12-27 15:58] LABS: CKMB 1.3 ng/mL (0-6.6)
--- NOTE | 2019-12-27 15:59 | RAD ---
XR Hip Rt 2-3 View INDICATION: Fall with right hip pain COMPARISON: None FINDINGS: Bones: No acute osseous abnormality. Bone mineralization appears within normal limits. Hip joint: There is mild right hip osteoarthrosis. SI joints and symphysis pubis: There is moderate right SI joint osteoarthrosis. Intrapelvic contents: Small phleboliths within the lower pelvis. Surrounding soft tissues: Radiographically normal. IMPRESSION: 1. No acute osseous abnormality.
--- NOTE | 2019-12-27 15:59 | RAD ---
AP view of the pelvis INDICATION: Fall COMPARISON: None. FINDINGS: Bones: No acute fracture or subluxation is evident. Bone mineralization appears within normal limits. Hips: There is mild degenerative change of both hip joints. SI joints and symphysis pubis: Normal appearing. Intrapelvic contents: Small phleboliths within the lower pelvis. Bowel gas pattern is unremarkable. IMPRESSION: No acute osseous abnormality.
--- NOTE | 2019-12-27 16:03 | RAD ---
XR Hip Lt 2-3 View HISTORY: Fall, left hip pain FINDINGS: No fracture or dislocation is identified. Degenerative changes are present.
[2019-12-27] MEDS ORDERED: Ondansetron ODT 4 MG TAB SL PRN (21:30)
[2019-12-27] MEDS ORDERED: Ondansetron PF 4 MG/2 ML Vial IVP PRN (21:30)
[2019-12-27] MEDS ORDERED: Acetaminophen 325 MG TAB PO PRN (21:30)
[2019-12-27] MEDS ORDERED: Calcium Carbonate 500 MG ChewTAB PO PRN (22:26)
--- NOTE | 2019-12-27 22:40 | PDOC.HHP ---
Hospitalist HPI - History of Present Illness Fall History of Present Illness: PCP: Danny Barksdale The patient is a 69/F with PMH significant for osteoarthritis and obesity that presents to the ER for the above complaint. The patient reports that she was attempting to sit down in her recliner at home, when her legs "would not move". Reports she could feel the bones of her knees grinding together. She screamed out to her home health nurse, who comes in the morning for ADL assistance, to come help her. She then fell to the ground. She denies hitting her head, denies LOC and vomiting. She developed bilateral hip pain after the fall, so EMS was called. While waiting for EMS, she reports taking a flexeril tablet and tylenol #3 to help with her pain. Denies any chest pain or heart palpiations. Denies sob. Denies light headedness. Denies abdominal pain, fever or chills. Of note, she has been seeking insurance approval for inpatient rehab through [facility]. ED Course: VS 97.9F, BP 155/93, HR 72, RR 18, Sp02 97% 3L NC XR bilateral hip and pelvis negative for acute process. Hospitalist ROS - Review of Systems Constitutional: denies: fever, chills, sweats, weakness, malaise, other Eyes: denies: pain, vision change, conjunctivae inflammation, eyelid inflammation, redness, other ENT: denies: ear pain, ear discharge, nose pain, nose discharge, nose congestion , mouth pain, mouth swelling, throat pain, throat swelling, other Respiratory: denies: cough, shortness of breath, hemoptysis, pleuritic pain, wheezing Cardiovascular: denies: chest pain, palpitations, orthopnea, paroxysmal noc. dyspnea, light headedness Gastrointestinal: denies: nausea, vomiting, abdominal pain, diarrhea, constipation, melena, hematochezia, other Genitourinary: denies: dysuria, frequency, incontinence, hematuria, retention, other Musculoskeletal: reports: other (bilateral hip and knee pain) Neurological: reports: weakness. denies: change in speech, confusion Hospitalist History - Past Medical History Source: patient Cardiac: reports: CHF, HTN Pulmonary: reports: asthma, COPD (3L NC at home) Gastrointestinal: reports: GERD Musculoskeletal: reports: Chronic low back pain Endocrine: reports: Hypothyroidism (rtent thyroiditis) - Past Surgical History Past Surgical History: reports: Tonsillectomy, Other (ankle, gastric staple, partial thyroidectomy) - Family History Family History: reports: no pertinent history (non contributory to this case) - Social History Smoking Status: Never smoker Alcohol: reports: None Drugs: reports: none Living Situation: With Family 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, retired middle school guidance counselor Activity level: uses cane/walker - Exam General Appearance: NAD, awake alert Eye: anicteric sclera ENT: normocephalic atraumatic, moist mucosa Neck: supple, no JVD Heart: RRR, no murmur, no gallops, no rubs, normal peripheral pulses Heart - other findings: distant heart sounds Respiratory: CTAB, no wheezes, no rales, no ronchi Gastrointestinal: soft, non-tender, normal bowel sounds, no guarding, no rigidity Extremities: no edema Skin: no rashes Neurological: cranial nerve grossly intact, no focal deficits Psychiatric: normal affect, A&O x 3 Hospitalist Results - Labs Result Diagrams: 12/27/19 15:24 Lab results: WBC 9.3 thou/uL (4.8-10.8) 12/27/19 15:24 Hgb 10.8 g/dL (12.0-16.0) L 12/27/19 15:24 Hct 33.3 % (36.0-47.0) L 12/27/19 15:24 MCV 84.7 fL (78.0-98.0) 12/27/19 15:24 Plt Count 261 thou/uL (130-400) 12/27/19 15:24 Neutrophils % 75.7 % (42.0-75.0) H 12/27/19 15:24 Creatine Kinase 232 U/L (29-168) H 12/27/19 15:24 CK-MB (CK-2) 1.3 ng/mL (0-6.6) 12/27/19 15:24 - Radiology Interpretation Other Additional Comment: XR of bilateral hip and pelvis reviewed by la Hospitalist H&P A/P - Problem (1) Frequent falls Code(s): R29.6 - REPEATED FALLS Status: Acute Assessment and Plan: admit to medical floor, observation status expected stay length less than 24 hours Fall most likely secondary to degenerative joints and physical deconditioning Consult PT/OT Consult Case management Patient awaiting insurance approval for inpatient rehabilitation with [facility]. (2) Osteoarthritis Code(s): M19.90 - UNSPECIFIED OSTEOARTHRITIS, UNSPECIFIED SITE Status: Chronic Assessment and Plan: Restart home medications when reconciled by nursing. (3) Morbid obesity Code(s): E66.01 - MORBID (SEVERE) OBESITY DUE TO EXCESS CALORIES Status: Chronic Assessment and Plan: Ambulate with assist Consult PT and OT diet (4) Physical deconditioning Code(s): R53.81 - OTHER MALAISE Status: Chronic Assessment and Plan: Consult PT/OT patient pending insurance approval for inpatient rehabilitation (5) Chronic back pain Code(s): M54.9 - DORSALGIA, UNSPECIFIED; G89.29 - OTHER CHRONIC PAIN Status: Chronic (6) COPD (chronic obstructive pulmonary disease) Status: Chronic Assessment and Plan: Stable Uses 3L NC at home Order supplemental oxygen NC Duonebs prn (7) Asthma Code(s): J45.909 - UNSPECIFIED ASTHMA, UNCOMPLICATED Status: Chronic Assessment and Plan: stable Restart home medications when reconciled by nursing Supplemental oxygen NC Duonebs prn (8) HTN (hypertension) Code(s): I10 - ESSENTIAL (PRIMARY) HYPERTENSION Status: Acute Assessment and Plan: will restart home medications when reconciled by nursing (9) GERD (gastroesophageal reflux disease) Code(s): K21.9 - GASTRO-ESOPHAGEAL REFLUX DISEASE WITHOUT ESOPHAGITIS Status: Acute (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
[2019-12-27 23:37] VITALS: BMI 68.5
[2019-12-28 06:04] LABS: #Eosinphils 0.1 thou/uL (0.0-0.7); #Lymphocytes 1.4 thou/uL (1.20-3.40); #Monocytes 0.5 thou/uL (0.11-0.59); #Neutrophils 4.6 thou/uL (1.40-6.50); %Basophils 0.1 % (0.0-1.0); %Eosinophils 1.4 % (0.0-10.0); %Lymphocytes 21.5 % (21.0-51.0); %Monocytes 7.3 % (0.0-10.0); %Neutrophils 69.8 % (42.0-75.0); Hemoglobin 9.5 g/dL (12.0-16.0); Mean Corpuscular HGB CONC 32.9 g/dL (32.0-36.0); Mean Corpuscular Hemoglobin 27.7 pg (27.0-31.0); Mean Corpuscular Volume 84.2 fL (78.0-98.0); Mean Platelet Volume 8.6 fL (7.4-10.4); Platelet Count 245 thou/uL (130-400); RBC Distribution Width 14.3 % (11.5-14.5); Red Blood Cell (RBC) Count 3.43 mill/uL (4.20-5.40); White Blood Cell (WBC) Count 6.5 thou/uL (4.8-10.8)
[2019-12-28 06:22] LABS: Anion Gap 13 mmol/L (10-20); Carbon Dioxide 32 mmol/L (23-31); Chloride 96 mmol/L (98-107); Sodium 137 mmol/L (136-145)
[2019-12-28 06:23] LABS: BUN (Urea Nitrogen) 13 mg/dL (9.8-20.1); Calc. Creatinine Clearance 99 mL/min (70-130); Calcium 8.9 mg/dL (7.8-10.44); Estimated GFR-MDRD 58; Glucose 192 mg/dL (80-115)
[2019-12-28] MEDS ORDERED: Enoxaparin Sodium 40 MG/0.4 ML SYRINGE SC SCH (09:00)
[2019-12-28] MEDS ORDERED: Cyclobenzaprine 10 MG TAB PO PRN (14:24)
[2019-12-28] MEDS ORDERED: Acetaminophen/Codeine 30-300mg Tablet PO PRN (14:24)
[2019-12-28] MEDS ORDERED: Benzonatate 100 MG CAP PO PRN (14:24)
[2019-12-28] MEDS: Gabapentin 400 MG CAP PO SCH ×2 (15:14→20:54)
--- NOTE | 2019-12-28 16:13 | PDOC.HOSPP ---
- Subjective Encounter Date: 12/28/19 Subjective: No new complains - Objective Vital Signs & Weight: Vital Signs (12 hours) Temp Pulse Resp BP BP Pulse Ox 12/28/19 15:15 97.6 F 82 16 162/93 H 95 12/28/19 13:28 81 14 99 12/28/19 11:25 98.0 F 83 16 158/92 H 96 12/28/19 07:51 98.6 F 80 16 152/80 H 94 L 12/28/19 04:40 97.9 F 89 20 137/69 93 L Weight Weight 248 lb 1.6 oz I&O: 12/27/19 12/28/19 12/29/19 06:59 06:59 06:59 Intake Total 600 480 Output Total 450 Balance 150 480 Result Diagrams: 12/28/19 05:26 12/28/19 05:26 Hospitalist ROS - Medication Medications: Active Medications Generic Name Dose Route Start Last Admin Trade Name Freq PRN Reason Stop Dose Admin Albuterol/Ipratropium 3 ml 12/28/19 13:00 12/28/19 13:28 Duoneb NEB 3 ml [id number] MAN Administration Cyclobenzaprine HCl 10 mg 12/28/19 14:24 12/28/19 15:19 Flexeril PO 10 mg BID PRN Administration Pain Enoxaparin Sodium 40 mg 12/28/19 09:00 12/28/19 08:16 Lovenox SC 40 mg 0900 MAN Administration Gabapentin 400 mg 12/28/19 15:00 12/28/19 15:14 Neurontin PO 400 mg TID MAN Administration - Exam General Appearance: awake alert Eye: PERRL ENT: normocephalic atraumatic Neck: supple Heart: RRR, no murmur, no gallops, no rubs, normal peripheral pulses Respiratory: CTAB, no wheezes, no rales, no ronchi, normal chest expansion Gastrointestinal: soft, non-tender, non-distended, normal bowel sounds Hosp A/P (1) Chronic back pain Code(s): M54.9 - DORSALGIA, UNSPECIFIED; G89.29 - OTHER CHRONIC PAIN Status: Chronic (2) Osteoarthritis Code(s): M19.90 - UNSPECIFIED OSTEOARTHRITIS, UNSPECIFIED SITE Status: Chronic (3) Physical deconditioning Code(s): R53.81 - OTHER MALAISE Status: Chronic - Plan Patient with deconditioning and frequent falls Continue PT and OT Pending placement
[2019-12-28] MEDS: Fluticasone Propionate Nasal Spray 16 gm Bottle NASAL SCH (20:53)
[2019-12-28] MEDS: Metoclopramide HCl 10 MG TAB PO SCH (20:54)
[2019-12-28] MEDS: Trospium 20 MG TAB PO SCH (20:55)
[2019-12-28] MEDS: traZODone HCl 150 MG TAB PO SCH (20:55)
[2019-12-28] MEDS: Acetaminophen/Codeine 30-300mg Tablet PO PRN (20:58)
[2019-12-29] MEDS ORDERED: hydrALAZINE 20 MG/ML VIAL SLOW IVP SCH (03:45)
[2019-12-29] MEDS: Levothyroxine Sodium 125 MCG TAB PO SCH (05:20)
[2019-12-29 05:37] LABS: INR-International Normal Ratio 1.5
[2019-12-29 05:55] LABS: Anion Gap 11 mmol/L (10-20); BUN (Urea Nitrogen) 10 mg/dL (9.8-20.1); Calc. Creatinine Clearance 115 mL/min (70-130); Calcium 8.7 mg/dL (7.8-10.44); Carbon Dioxide 34 mmol/L (23-31); Chloride 98 mmol/L (98-107); Estimated GFR-MDRD 69; Glucose 162 mg/dL (80-115); Potassium 4.1 mmol/L (3.5-5.1); Sodium 139 mmol/L (136-145)
[2019-12-29 06:34] LABS: Band 7 % (5-11); Lymphocytes 30 % (21-51); MDiff Complete? YES; Monocytes 3 % (0-10); Neutrophil 60 % (42-75)
[2019-12-29 06:35] LABS: Hemoglobin 9.9 g/dL (12.0-16.0); Mean Corpuscular HGB CONC 31.7 g/dL (32.0-36.0); Mean Corpuscular Hemoglobin 26.8 pg (27.0-31.0); Mean Corpuscular Volume 84.6 fL (78.0-98.0); Mean Platelet Volume 8.5 fL (7.4-10.4); Platelet Count 241 thou/uL (130-400); RBC Distribution Width 14.3 % (11.5-14.5); White Blood Cell (WBC) Count 4.9 thou/uL (4.8-10.8)
[2019-12-29] MEDS: Fluticasone Propionate Nasal Spray 16 gm Bottle NASAL SCH ×2 (09:54→20:06)
[2019-12-29] MEDS: Trospium 20 MG TAB PO SCH ×2 (09:55→20:06)
[2019-12-29] MEDS: Metoclopramide HCl 10 MG TAB PO SCH ×2 (09:55→20:06)
[2019-12-29] MEDS: Gabapentin 400 MG CAP PO SCH ×3 (09:55→20:06)
[2019-12-29] MEDS: Losartan 25 MG TAB PO SCH (09:55)
[2019-12-29] MEDS ORDERED: Warfarin Sodium 5 MG TAB PO SCH (17:00)
[2019-12-29] MEDS: traZODone HCl 150 MG TAB PO SCH (20:06)
--- NOTE | 2019-12-29 22:32 | PDOC.HOSPP ---
- Subjective Encounter Date: 12/29/19 Encounter Time: 13:00 - Objective Vital Signs & Weight: Vital Signs (12 hours) Temp Pulse Resp BP Pulse Ox 12/29/19 19:36 98.1 F 80 16 113/65 93 L 12/29/19 19:01 78 16 95 12/29/19 15:39 98.0 F 80 16 160/82 H 94 L 12/29/19 12:20 84 20 95 12/29/19 11:35 98.0 F 81 16 147/87 H 93 L Weight Weight 248 lb 1.6 oz I&O: 12/28/19 12/29/19 12/30/19 06:59 06:59 06:59 Intake Total 600 1800 714 Output Total 450 1900 2400 Balance 279 -100 -6383 Result Diagrams: 12/29/19 05:04 12/29/19 05:04 Hospitalist ROS - Medication Medications: Active Medications Generic Name Dose Route Start Last Admin Trade Name Freq PRN Reason Stop Dose Admin Acetaminophen/Codeine Phosphate 1 tab 12/28/19 14:29 12/28/19 20:58 Tylenol #3 PO 1 tab BID PRN Administration Pain Albuterol/Ipratropium 3 ml 12/28/19 13:00 12/29/19 19:01 Duoneb NEB 3 ml [id number] MAN Administration Cyclobenzaprine HCl 10 mg 12/28/19 14:24 12/28/19 15:19 Flexeril PO 10 mg BID PRN Administration Pain Diltiazem HCl 240 mg 12/29/19 09:00 12/29/19 09:54 Cardizem Cd PO 240 mg DAILY MAN Administration Fluticasone Propionate 1 gm 12/28/19 21:00 12/29/19 20:06 Flonase Nasal [place] NASAL 1 spr BID MAN Administration Gabapentin 400 mg 12/28/19 15:00 12/29/19 20:06 Neurontin PO 400 mg TID MAN Administration Levothyroxine Sodium 125 mcg 12/29/19 06:00 12/29/19 05:20 Synthroid PO 125 mcg 0600 MAN Administration Losartan Potassium 50 mg 12/29/19 09:00 12/29/19 09:55 Cozaar PO 50 mg DAILY MAN Administration Metoclopramide HCl 10 mg 12/28/19 21:00 12/29/19 20:06 Reglan PO 10 mg BID MAN Administration Pantoprazole Sodium 40 mg 12/29/19 09:00 12/29/19 09:55 Protonix PO 40 mg DAILY MAN Administration Trazodone HCl 150 mg 12/28/19 21:00 12/29/19 20:06 Desyrel PO 150 mg HS MAN Administration Trospium 20 mg 12/28/19 21:00 12/29/19 20:06 Trospium PO 20 mg BID MAN Administration Warfarin Sodium 5 mg 12/29/19 17:00 12/29/19 17:44 Coumadin PO 5 mg 1700 MAN Administration - Exam General Appearance: NAD ENT: normocephalic atraumatic Neck: supple, no JVD Heart: RRR, no murmur, no gallops, no rubs, normal peripheral pulses Respiratory: CTAB, no wheezes, no rales, no ronchi, normal chest expansion Gastrointestinal: soft, non-tender, non-distended, normal bowel sounds Hosp A/P (1) Chronic back pain Code(s): M54.9 - DORSALGIA, UNSPECIFIED; G89.29 - OTHER CHRONIC PAIN Status: Chronic (2) Osteoarthritis Code(s): M19.90 - UNSPECIFIED OSTEOARTHRITIS, UNSPECIFIED SITE Status: Chronic (3) Physical deconditioning Code(s): R53.81 - OTHER MALAISE Status: Chronic - Plan Patient with deconditioning and frequent falls Continue PT and OT Pending placement
[2019-12-30] MEDS: Levothyroxine Sodium 125 MCG TAB PO SCH (05:21)
[2019-12-30 05:22] LABS: Eosinophils 1 % (0-10); Hemoglobin 9.9 g/dL (12.0-16.0); Hypochromia SLIGHT = 6-15 cells (100X) (0-5/hpf); Lymphocytes 26 % (21-51); MDiff Complete? YES; Mean Corpuscular HGB CONC 31.2 g/dL (32.0-36.0); Mean Corpuscular Hemoglobin 26.7 pg (27.0-31.0); Mean Corpuscular Volume 85.6 fL (78.0-98.0); Mean Platelet Volume 8.3 fL (7.4-10.4); Monocytes 2 % (0-10); Neutrophil 71 % (42-75); Platelet Count 251 thou/uL (130-400); Platelet Morphology Comment Appears Adequate; RBC Distribution Width 14.3 % (11.5-14.5); Red Blood Cell (RBC) Count 3.71 mill/uL (4.20-5.40); White Blood Cell (WBC) Count 5.3 thou/uL (4.8-10.8)
[2019-12-30 05:30] LABS: Anion Gap 8 mmol/L (10-20); BUN (Urea Nitrogen) 10 mg/dL (9.8-20.1); Calc. Creatinine Clearance 96 mL/min (70-130); Calcium 8.7 mg/dL (7.8-10.44); Carbon Dioxide 37 mmol/L (23-31); Chloride 96 mmol/L (98-107); Estimated GFR-MDRD 56; Glucose 205 mg/dL (80-115); Potassium 4.3 mmol/L (3.5-5.1); Sodium 137 mmol/L (136-145)
[2019-12-30 06:04] LABS: INR-International Normal Ratio 1.4; Prothrombin Time 17.2 SEC (12.0-14.7)
[2019-12-30 07:11] VITALS: TEMP 98.3
[2019-12-30] MEDS: Fluticasone Propionate Nasal Spray 16 gm Bottle NASAL SCH (09:34)
[2019-12-30] MEDS: Trospium 20 MG TAB PO SCH (09:35)
[2019-12-30] MEDS: Losartan 25 MG TAB PO SCH (09:35)
[2019-12-30] MEDS: Gabapentin 400 MG CAP PO SCH ×2 (09:35→13:58)
[2019-12-30] MEDS: Metoclopramide HCl 10 MG TAB PO SCH (09:35)
[2019-12-30 12:11] VITALS: BP 147/83
[2019-12-30] MEDS ORDERED: Amlodipine 5 MG TAB PO SCH (12:30)
[2019-12-30] MEDS: Acetaminophen/Codeine 30-300mg Tablet PO PRN (13:36)
== END 2019-12-30 13:55 ==
LOC: ERS 15:06 → SURG B 19:30
PROVIDERS: ADMIT Internal Medicine; ATTEND Internal Medicine
DX: M25.551 Pain in right hip (principal); M25.552 Pain in left hip; R53.81 Other malaise; R29.6 Repeated falls; G89.29 Other chronic pain; M54.9 Dorsalgia, unspecified; I11.0 Hypertensive heart disease with heart failure; I50.9 Heart failure, unspecified; J44.9 Chronic obstructive pulmonary disease, unspecified; K21.9 Gastro-esophageal reflux disease without esophagitis; E06.3 Autoimmune thyroiditis; E66.01 Morbid (severe) obesity due to excess calories; Z68.38 Body mass index [BMI] 38.0-38.9, adult; Z79.01 Long term (current) use of anticoagulants; Z79.899 Other long term (current) drug therapy; Z88.2 Allergy status to sulfonamides; Z91.041 Radiographic dye allergy status
CPT/HCPCS: 36415; 72170; 80048; 82550; 82553; 85007; 85025; 85027; 85610; 94640; 96372; 96374; G0378; J0360; J1650; J7620

== ENCOUNTER 2021-08-20 13:36 | Emergency (ER) | payer MEDICARE ==
[2021-08-20 14:34] LABS: #Eosinphils 0.1 thou/uL (0.0-0.7); #Lymphocytes 1.9 thou/uL (1.20-3.40); #Monocytes 0.5 thou/uL (0.11-0.59); #Neutrophils 5.5 thou/uL (1.40-6.50); %Basophils 0.1 % (0.0-1.0); %Lymphocytes 23.8 % (21.0-51.0); %Monocytes 6.3 % (0.0-10.0); %Neutrophils 68.8 % (42.0-75.0); Hemoglobin 10.4 g/dL (12.0-16.0); Mean Corpuscular HGB CONC 30.7 g/dL (32.0-36.0); Mean Corpuscular Hemoglobin 25.2 pg (27.0-31.0); Mean Corpuscular Volume 82.2 fL (78.0-98.0); Mean Platelet Volume 7.9 fL (7.4-10.4); Platelet Count 286 thou/uL (130-400); RBC Distribution Width 15.2 % (11.5-14.5); Red Blood Cell (RBC) Count 4.13 mill/uL (4.20-5.40)
[2021-08-20 14:57] LABS: ALT (SGPT) Less than 7 U/L (8-55); AST (SGOT) 14 U/L (5-34); Albumin 3.7 g/dL (3.4-4.8); Alkaline Phosphatase 56 U/L (40-110); Anion Gap 8 mmol/L (10-20); BUN (Urea Nitrogen) 12 mg/dL (9.8-20.1); Bilirubin, Total 0.3 mg/dL (0.2-1.2); Calc. Creatinine Clearance 0 mL/min (70-130); Calcium 9.5 mg/dL (7.8-10.44); Carbon Dioxide 37 mmol/L (23-31); Chloride 97 mmol/L (98-107); Globulin 3.4 g/dL (2.4-3.5); Glucose 134 mg/dL (83-110); Potassium 4.3 mmol/L (3.5-5.1); Protein, Total 7.1 g/dL (5.8-8.1); Sodium 138 mmol/L (136-145)
[2021-08-20 15:51] LABS: CK (CPK) 117 U/L (29-168); Lipase 12 U/L (8-78)
[2021-08-20 21:50] LABS: SARS-CoV-2 PCR by NAA Not Detected (NotDetected)
== END 2021-08-20 23:35 | disposition home or self-care (01) ==
LOC: ERS 13:36
DX: R07.89 Other chest pain (principal); M25.512 Pain in left shoulder; Z20.822 Contact with and (suspected) exposure to COVID-19; I10 Essential (primary) hypertension; E03.9 Hypothyroidism, unspecified; K21.9 Gastro-esophageal reflux disease without esophagitis; I50.9 Heart failure, unspecified; I48.91 Unspecified atrial fibrillation; J44.9 Chronic obstructive pulmonary disease, unspecified; Z79.899 Other long term (current) drug therapy
CPT/HCPCS: 51701; 71045; 73030; 80053; 82550; 83690; 83880; 84484; 85025; 93005; 99285; U0003; U0005; 36415

== ENCOUNTER 2021-10-09 19:09 | Emergency (ER) | payer MEDICARE ==
[2021-10-09 19:37] LABS: #Eosinphils 0.1 thou/uL (0.0-0.7); #Lymphocytes 2.2 thou/uL (1.20-3.40); #Monocytes 0.5 thou/uL (0.11-0.59); #Neutrophils 5.8 thou/uL (1.40-6.50); %Basophils 0.3 % (0.0-1.0); %Eosinophils 0.9 % (0.0-10.0); %Monocytes 5.5 % (0.0-10.0); %Neutrophils 67.4 % (42.0-75.0); Hemoglobin 10.6 g/dL (12.0-16.0); Mean Corpuscular HGB CONC 32.6 g/dL (32.0-36.0); Mean Corpuscular Hemoglobin 26.9 pg (27.0-31.0); Mean Corpuscular Volume 82.4 fL (78.0-98.0); Mean Platelet Volume 7.8 fL (7.4-10.4); Platelet Count 275 thou/uL (130-400); RBC Distribution Width 15.3 % (11.5-14.5); Red Blood Cell (RBC) Count 3.96 mill/uL (4.20-5.40); White Blood Cell (WBC) Count 8.6 thou/uL (4.8-10.8)
[2021-10-09 19:51] LABS: ALT (SGPT) Less than 7 U/L (8-55); AST (SGOT) 18 U/L (5-34); Albumin 3.9 g/dL (3.4-4.8); Alkaline Phosphatase 57 U/L (40-110); Anion Gap 11 mmol/L (10-20); BUN (Urea Nitrogen) 5 mg/dL (9.8-20.1); Bilirubin, Total 0.4 mg/dL (0.2-1.2); Calc. Creatinine Clearance 0 mL/min (70-130); Calcium 9.6 mg/dL (7.8-10.44); Carbon Dioxide 34 mmol/L (23-31); Chloride 97 mmol/L (98-107); Globulin 3.5 g/dL (2.4-3.5); Glucose 102 mg/dL (83-110); Potassium 3.8 mmol/L (3.5-5.1); Protein, Total 7.4 g/dL (5.8-8.1); Sodium 138 mmol/L (136-145)
[2021-10-09 21:36] LABS: Bilirubin Negative (Negative); Blood, Urine Negative (Negative); Clarity Clear (Clear); Glucose, Urine (Dipstick) Normal (Negative); Ketone, Urine Negative (Negative); Leukocyte Negative Leu/uL (Negative); Nitrite Negative (Negative); Protein, Urine (Dipstick) 20 mg/dL (Neg-Trace); Specific Gravity, Urine 1.017 (1.002-1.036); Urobilinogen Normal mg/dL (Less than 2); pH, Urine 8.5 (5.0-9.0)
== END 2021-10-09 22:56 | disposition home or self-care (01) ==
LOC: ERS 19:09
DX: S09.90XA Unspecified injury of head, initial encounter (principal); I10 Essential (primary) hypertension; E03.9 Hypothyroidism, unspecified; K21.9 Gastro-esophageal reflux disease without esophagitis; J44.9 Chronic obstructive pulmonary disease, unspecified; W19.XXXA Unspecified fall, initial encounter
CPT/HCPCS: 70450; 72125; 72128; 72131; 80053; 81003; 84484; 85025

== ENCOUNTER 2023-01-29 14:56 | Emergency (ER) | payer MEDICARE ==
[2023-01-29] MEDS ORDERED: Ketorolac Tromethamine 30 MG/ML VIAL ONE (16:13)
== END 2023-01-29 18:05 | disposition home or self-care (01) ==
LOC: ERS 14:56
DX: M25.552 Pain in left hip (principal); I10 Essential (primary) hypertension; E03.9 Hypothyroidism, unspecified; K21.9 Gastro-esophageal reflux disease without esophagitis; J44.9 Chronic obstructive pulmonary disease, unspecified
CPT/HCPCS: 96372; J1885

== ENCOUNTER 2023-02-10 15:25 | Inpatient (IN) | payer MEDICARE ==
[2023-02-10 16:25] LABS: #Eosinphils 0.2 thou/uL (0.0-0.7); #Lymphocytes 1.6 thou/uL (1.20-3.40); #Monocytes 0.6 thou/uL (0.11-0.59); #Neutrophils 5.1 thou/uL (1.40-6.50); %Basophils 0.2 % (0.0-1.0); %Eosinophils 2.4 % (0.0-10.0); %Lymphocytes 21.6 % (21.0-51.0); %Monocytes 8.1 % (0.0-10.0); %Neutrophils 67.8 % (42.0-75.0); Mean Corpuscular HGB CONC 30.5 g/dL (32.0-36.0); Mean Corpuscular Hemoglobin 25.2 pg (27.0-31.0); Mean Corpuscular Volume 82.4 fl (78.0-98.0); Mean Platelet Volume 7.2 fL (7.4-10.4); Platelet Count 442 10x3/uL (130-400); RBC Distribution Width 15.7 % (11.5-14.5); Red Blood Cell (RBC) Count 2.77 mill/uL (4.20-5.40); White Blood Cell (WBC) Count 7.6 10x3/uL (4.8-10.8)
[2023-02-10 16:39] LABS: ALT (SGPT) Less than 7 U/L (8-55); AST (SGOT) 11 U/L (5-34); Albumin 3.7 g/dL (3.4-4.8); Alkaline Phosphatase 50 U/L (40-110); Anion Gap 13 mmol/L (10-20); BUN (Urea Nitrogen) 11 mg/dL (9.8-20.1); Bilirubin, Total 0.4 mg/dL (0.2-1.2); Calc. Creatinine Clearance 0 mL/min (70-130); Calcium 9.1 mg/dL (7.8-10.44); Carbon Dioxide 32 mmol/L (23-31); Chloride 99 mmol/L (98-107); Estimated GFR 79; Glucose 119 mg/dL (83-110); Lipase 9 U/L (8-78); Magnesium 1.9 mg/dL (1.6-2.6); Potassium 3.5 mmol/L (3.5-5.1); Protein, Total 6.7 g/dL (5.8-8.1); Sodium 140 mmol/L (136-145)
[2023-02-10] MEDS ORDERED: Furosemide 100 MG/10 ML VIAL ONE (16:51)
[2023-02-10] MEDS ORDERED: Moisturizing Cream (Eucerin) 113 GM JAR TOP PRN (18:39)
[2023-02-10] MEDS ORDERED: Artificial Tear Sol 15 ML BOT EA EYE PRN (18:39)
[2023-02-10] MEDS ORDERED: Acetaminophen 650 MG Suppository PR PRN (18:39)
[2023-02-10] MEDS ORDERED: Nitroglycerin 0.4 MG TAB (25 Tab Bottle) SL PRN (18:39)
[2023-02-10] MEDS ORDERED: Aspirin 325 MG TAB PO SCH (18:45)
[2023-02-10 18:51] VITALS: BMI 57.7
[2023-02-10] MEDS ORDERED: Dextrose 5% in Water 1,000 ML IV PRN (18:52)
[2023-02-10] MEDS ORDERED: Dextrose 50% Abboject 50 ML SYRINGE SLOW IVP PRN (18:52)
[2023-02-10] MEDS ORDERED: Pantoprazole 40 MG VIAL IVP SCH (19:00)
[2023-02-10] MEDS ORDERED: Ipratropium/Albuterol 3 ML NEB NEB PRN (19:06)
[2023-02-10 20:41] LABS: Troponin I Less than 0.010 ng/mL (< 0.028)
[2023-02-10] MEDS: Atorvastatin Calcium 40 MG TAB PO SCH (21:00)
[2023-02-10] MEDS: Apixaban 5 MG TAB PO SCH (21:00)
[2023-02-10] MEDS: Pramipexole Di-HCl 0.25 MG TAB PO SCH (21:00)
[2023-02-10] MEDS: Pantoprazole 40 MG VIAL IVP SCH (21:01)
[2023-02-10] MEDS: Acetaminophen 325 MG TAB PO PRN (21:11)
[2023-02-10] MEDS: hydrOXYzine 25 MG TAB PO PRN (21:15)
[2023-02-10 22:20] LABS: Hemoglobin 7.1 g/dL (12.0-16.0); Platelet Count 431 10x3/uL (130-400)
[2023-02-10 22:24] LABS: Troponin I Less than 0.010 ng/mL (< 0.028)
[2023-02-10] MEDS: Mometasone 200 MCG/Formoterol 5 MCG 120 PUFF INHALER INH SCH (22:27)
[2023-02-11 05:22] LABS: #Eosinphils 0.2 thou/uL (0.0-0.7); #Lymphocytes 1.6 thou/uL (1.20-3.40); #Monocytes 0.3 thou/uL (0.11-0.59); #Neutrophils 4.3 thou/uL (1.40-6.50); %Basophils 0.5 % (0.0-1.0); %Eosinophils 2.8 % (0.0-10.0); %Monocytes 4.6 % (0.0-10.0); %Neutrophils 67.2 % (42.0-75.0); Hemoglobin 7.3 g/dL (12.0-16.0); Mean Corpuscular HGB CONC 31.5 g/dL (32.0-36.0); Mean Corpuscular Hemoglobin 25.6 pg (27.0-31.0); Mean Corpuscular Volume 81.3 fl (78.0-98.0); Mean Platelet Volume 7.8 fL (7.4-10.4); Platelet Count 390 10x3/uL (130-400); RBC Distribution Width 15.9 % (11.5-14.5); Red Blood Cell (RBC) Count 2.86 mill/uL (4.20-5.40); White Blood Cell (WBC) Count 6.3 10x3/uL (4.8-10.8)
[2023-02-11 05:35] LABS: Anion Gap 12 mmol/L (10-20); BUN (Urea Nitrogen) 9 mg/dL (9.8-20.1); Calc. Creatinine Clearance 172 mL/min (70-130); Calcium 8.7 mg/dL (7.8-10.44); Carbon Dioxide 32 mmol/L (23-31); Cardiac Risk 2.2 (Less than 4.5); Chloride 97 mmol/L (98-107); Cholesterol 108 mg/dl (< 200 Desired); Estimated GFR 81; Glucose 94 mg/dL (83-110); HDL Cholesterol 49 mg/dL (>60 Neg Risk); Iron 19 ug/dL (50-170); Iron Binding Capacity, Total 378 mcg/dL (265-497); LDL Cholesterol, Calculated 44 mg/dL; Potassium 3.2 mmol/L (3.5-5.1); Sodium 138 mmol/L (136-145); Triglycerides 73 mg/dL (Less than 150)
[2023-02-11 05:38] LABS: Iron 21 ug/dL (50-170); Iron Binding Capacity, Total 374 mcg/dL (265-497)
[2023-02-11] MEDS: Mometasone 200 MCG/Formoterol 5 MCG 120 PUFF INHALER INH SCH ×2 (07:19→18:50)
[2023-02-11] MEDS ORDERED: Pantoprazole 40 MG VIAL IVP SCH (09:00)
[2023-02-11] MEDS ORDERED: Potassium Bicarbonate/Cit Ac 20 MEQ TAB PO SCH (10:15)
[2023-02-11] MEDS ORDERED: Bumetanide 1 MG/4 ML VIAL IVP SCH (10:15)
[2023-02-11] MEDS: Losartan 25 MG TAB PO SCH (10:21)
[2023-02-11] MEDS: Aspirin Chewable 81 MG TAB PO SCH (10:21)
[2023-02-11] MEDS: Apixaban 5 MG TAB PO SCH ×2 (10:21→20:14)
[2023-02-11] MEDS: Pramipexole Di-HCl 0.25 MG TAB PO SCH ×2 (10:21→20:14)
[2023-02-11] MEDS: Pantoprazole 40 MG VIAL IVP SCH ×2 (10:23→20:15)
[2023-02-11] MEDS: Ferrous Sulfate 325 MG TAB PO SCH (10:37)
[2023-02-11] MEDS: cefTRIAXone\\ROCEPHIN 1 GM in Sodium Chloride 0.9% 100 ML IVPB SCH (13:32)
[2023-02-11] MEDS: Ipratropium/Albuterol 3 ML NEB NEB SCH ×3 (13:51→23:53)
[2023-02-11] MEDS: methylPREDNISolone Sod Succ 40 MG VIAL IVP SCH ×2 (15:06→20:18)
[2023-02-11] MEDS: HumaLOG 300 UNITS/3 ML VIAL SC PRN ×2 (17:34→20:31)
[2023-02-11] MEDS: Atorvastatin Calcium 40 MG TAB PO SCH (20:14)
[2023-02-11] MEDS: hydrOXYzine 25 MG TAB PO PRN (20:17)
[2023-02-11] MEDS: Acetaminophen 325 MG TAB PO PRN (20:17)
[2023-02-12 04:27] LABS: #Lymphocytes 0.8 thou/uL (1.20-3.40); #Monocytes 0.1 thou/uL (0.11-0.59); #Neutrophils 5.3 thou/uL (1.40-6.50); %Basophils 0.3 % (0.0-1.0); %Eosinophils 0.2 % (0.0-10.0); %Lymphocytes 12.6 % (21.0-51.0); %Monocytes 1.5 % (0.0-10.0); %Neutrophils 85.4 % (42.0-75.0); Mean Corpuscular HGB CONC 31.4 g/dL (32.0-36.0); Mean Corpuscular Hemoglobin 25.7 pg (27.0-31.0); Mean Corpuscular Volume 81.8 fl (78.0-98.0); Mean Platelet Volume 7.6 fL (7.4-10.4); Platelet Count 439 10x3/uL (130-400); RBC Distribution Width 15.7 % (11.5-14.5); Red Blood Cell (RBC) Count 3.11 mill/uL (4.20-5.40); White Blood Cell (WBC) Count 6.2 10x3/uL (4.8-10.8)
[2023-02-12 04:40] LABS: Anion Gap 14 mmol/L (10-20); BUN (Urea Nitrogen) 13 mg/dL (9.8-20.1); Calc. Creatinine Clearance 170 mL/min (70-130); Carbon Dioxide 31 mmol/L (23-31); Chloride 96 mmol/L (98-107); Estimated GFR 80; Glucose 213 mg/dL (83-110); Potassium 4.3 mmol/L (3.5-5.1); Sodium 137 mmol/L (136-145)
[2023-02-12] MEDS: methylPREDNISolone Sod Succ 40 MG VIAL IVP SCH (05:18)
[2023-02-12] MEDS: Mometasone 200 MCG/Formoterol 5 MCG 120 PUFF INHALER INH SCH ×2 (07:02→18:40)
[2023-02-12] MEDS: Ipratropium/Albuterol 3 ML NEB NEB SCH ×3 (07:03→18:38)
[2023-02-12] MEDS: Aspirin Chewable 81 MG TAB PO SCH (09:16)
[2023-02-12] MEDS: Losartan 25 MG TAB PO SCH (09:16)
[2023-02-12] MEDS: Apixaban 5 MG TAB PO SCH ×2 (09:16→21:59)
[2023-02-12] MEDS: Pramipexole Di-HCl 0.25 MG TAB PO SCH ×2 (09:16→21:58)
[2023-02-12] MEDS: Ferrous Sulfate 325 MG TAB PO SCH (09:17)
[2023-02-12] MEDS: Pantoprazole 40 MG VIAL IVP SCH ×2 (09:17→21:58)
[2023-02-12] MEDS: HumaLOG 300 UNITS/3 ML VIAL SC PRN ×2 (12:14→17:54)
[2023-02-12] MEDS ORDERED: Bumetanide 1 MG/4 ML VIAL IVP SCH (13:00)
[2023-02-12] MEDS: cefTRIAXone\\ROCEPHIN 1 GM in Sodium Chloride 0.9% 100 ML IVPB SCH (13:29)
[2023-02-12] MEDS: Acetaminophen 325 MG TAB PO PRN (16:25)
[2023-02-12] MEDS: Atorvastatin Calcium 40 MG TAB PO SCH (21:59)
[2023-02-13] MEDS: Ipratropium/Albuterol 3 ML NEB NEB SCH ×5 (01:50→23:47)
[2023-02-13 05:03] LABS: Mean Corpuscular Volume 84.1 fl (78.0-98.0); Mean Platelet Volume 7.6 fL (7.4-10.4); Platelet Count 446 10x3/uL (130-400); RBC Distribution Width 15.8 % (11.5-14.5); Red Blood Cell (RBC) Count 3.27 mill/uL (4.20-5.40); White Blood Cell (WBC) Count 10.2 10x3/uL (4.8-10.8)
[2023-02-13 05:15] LABS: Anion Gap 13 mmol/L (10-20); BUN (Urea Nitrogen) 15 mg/dL (9.8-20.1); Calc. Creatinine Clearance 174 mL/min (70-130); Carbon Dioxide 34 mmol/L (23-31); Chloride 96 mmol/L (98-107); Estimated GFR 83; Glucose 128 mg/dL (83-110); Magnesium 1.9 mg/dL (1.6-2.6); Potassium 3.9 mmol/L (3.5-5.1); Sodium 139 mmol/L (136-145)
[2023-02-13] MEDS: Mometasone 200 MCG/Formoterol 5 MCG 120 PUFF INHALER INH SCH ×2 (07:34→18:39)
[2023-02-13] MEDS: Pantoprazole 40 MG VIAL IVP SCH ×2 (08:33→21:16)
[2023-02-13] MEDS: Pramipexole Di-HCl 0.25 MG TAB PO SCH ×2 (08:34→21:15)
[2023-02-13] MEDS: Apixaban 5 MG TAB PO SCH ×2 (08:35→21:16)
[2023-02-13] MEDS: Aspirin Chewable 81 MG TAB PO SCH (08:35)
[2023-02-13] MEDS: Ferrous Sulfate 325 MG TAB PO SCH (08:35)
[2023-02-13] MEDS: Losartan 25 MG TAB PO SCH (08:35)
[2023-02-13] MEDS ORDERED: methylPREDNISolone Sod Succ 40 MG VIAL IVP SCH (09:00)
[2023-02-13 09:22] LABS: #Eosinphils 0.1 thou/uL (0.0-0.7); #Monocytes 0.8 thou/uL (0.11-0.59); #Neutrophils 7.4 thou/uL (1.40-6.50); %Basophils 0.2 % (0.0-1.0); %Eosinophils 0.6 % (0.0-10.0); %Lymphocytes 19.2 % (21.0-51.0); %Monocytes 7.5 % (0.0-10.0); %Neutrophils 72.5 % (42.0-75.0)
[2023-02-13 09:23] LABS: Hemoglobin 8.1 g/dL (12.0-16.0); Mean Corpuscular Hemoglobin 24.8 pg (27.0-31.0)
[2023-02-13 09:24] LABS: Mean Corpuscular HGB CONC 29.5 g/dL (32.0-36.0)
[2023-02-13] MEDS: cefTRIAXone\\ROCEPHIN 1 GM in Sodium Chloride 0.9% 100 ML IVPB SCH (14:30)
[2023-02-13] MEDS: methylPREDNISolone Sod Succ 40 MG VIAL IVP SCH ×2 (14:30→21:17)
[2023-02-13] MEDS: Acetaminophen 325 MG TAB PO PRN ×2 (16:33→21:15)
[2023-02-13] MEDS: HumaLOG 300 UNITS/3 ML VIAL SC PRN ×3 (18:22→21:28)
[2023-02-13] MEDS: Atorvastatin Calcium 40 MG TAB PO SCH (21:16)
[2023-02-14] MEDS: hydrOXYzine 25 MG TAB PO PRN ×2 (00:57→20:29)
[2023-02-14 04:46] LABS: #Lymphocytes 0.9 thou/uL (1.20-3.40); #Monocytes 0.2 thou/uL (0.11-0.59); #Neutrophils 6.4 thou/uL (1.40-6.50); %Basophils 0.1 % (0.0-1.0); %Eosinophils 0.2 % (0.0-10.0); %Lymphocytes 12.5 % (21.0-51.0); %Neutrophils 85.3 % (42.0-75.0); Hemoglobin 8.4 g/dL (12.0-16.0); Mean Corpuscular HGB CONC 30.7 g/dL (32.0-36.0); Mean Corpuscular Hemoglobin 25.3 pg (27.0-31.0); Mean Corpuscular Volume 82.5 fl (78.0-98.0); Mean Platelet Volume 7.8 fL (7.4-10.4); Platelet Count 415 10x3/uL (130-400); RBC Distribution Width 15.7 % (11.5-14.5); Red Blood Cell (RBC) Count 3.32 mill/uL (4.20-5.40); White Blood Cell (WBC) Count 7.5 10x3/uL (4.8-10.8)
[2023-02-14 05:03] LABS: Anion Gap 12 mmol/L (10-20); BUN (Urea Nitrogen) 17 mg/dL (9.8-20.1); Calc. Creatinine Clearance 163 mL/min (70-130); Calcium 9.1 mg/dL (7.8-10.44); Carbon Dioxide 31 mmol/L (23-31); Chloride 96 mmol/L (98-107); Estimated GFR 79; Glucose 208 mg/dL (83-110); Potassium 4.4 mmol/L (3.5-5.1); Sodium 135 mmol/L (136-145)
[2023-02-14] MEDS: methylPREDNISolone Sod Succ 40 MG VIAL IVP SCH ×3 (05:09→21:42)
[2023-02-14] MEDS: HumaLOG 300 UNITS/3 ML VIAL SC PRN ×3 (06:03→20:30)
[2023-02-14] MEDS: Acetaminophen 325 MG TAB PO PRN ×3 (06:08→20:29)
[2023-02-14] MEDS: Mometasone 200 MCG/Formoterol 5 MCG 120 PUFF INHALER INH SCH ×2 (07:48→18:27)
[2023-02-14] MEDS: Ipratropium/Albuterol 3 ML NEB NEB SCH (07:49)
[2023-02-14] MEDS: Furosemide 20 MG TAB PO SCH (08:53)
[2023-02-14] MEDS: Pantoprazole 40 MG VIAL IVP SCH ×2 (08:53→20:29)
[2023-02-14] MEDS: Losartan 25 MG TAB PO SCH (08:53)
[2023-02-14] MEDS: Pramipexole Di-HCl 0.25 MG TAB PO SCH ×2 (08:53→20:29)
[2023-02-14] MEDS: Apixaban 5 MG TAB PO SCH ×2 (08:53→20:28)
[2023-02-14] MEDS: Ferrous Sulfate 325 MG TAB PO SCH (08:53)
[2023-02-14] MEDS: Aspirin Chewable 81 MG TAB PO SCH (08:54)
[2023-02-14] MEDS: cefTRIAXone\\ROCEPHIN 1 GM in Sodium Chloride 0.9% 100 ML IVPB SCH (13:40)
[2023-02-14] MEDS: Ipratropium Bromide 2.5 ml Neb NEB SCH ×3 (14:30→23:12)
[2023-02-14] MEDS: Atorvastatin Calcium 40 MG TAB PO SCH (20:28)
[2023-02-15 04:41] LABS: #Lymphocytes 0.9 thou/uL (1.20-3.40); #Monocytes 0.2 thou/uL (0.11-0.59); #Neutrophils 6.2 thou/uL (1.40-6.50); %Basophils 0.6 % (0.0-1.0); %Eosinophils 0.1 % (0.0-10.0); %Lymphocytes 12.2 % (21.0-51.0); %Monocytes 3.2 % (0.0-10.0); %Neutrophils 83.9 % (42.0-75.0); Hemoglobin 8.2 g/dL (12.0-16.0); Mean Corpuscular HGB CONC 30.2 g/dL (32.0-36.0); Mean Corpuscular Hemoglobin 24.9 pg (27.0-31.0); Mean Corpuscular Volume 82.5 fl (78.0-98.0); Platelet Count 376 10x3/uL (130-400); RBC Distribution Width 15.7 % (11.5-14.5); Red Blood Cell (RBC) Count 3.28 mill/uL (4.20-5.40); White Blood Cell (WBC) Count 7.4 10x3/uL (4.8-10.8)
[2023-02-15 05:01] LABS: Anion Gap 15 mmol/L (10-20); BUN (Urea Nitrogen) 21 mg/dL (9.8-20.1); Calc. Creatinine Clearance 149 mL/min (70-130); Calcium 9.1 mg/dL (7.8-10.44); Carbon Dioxide 29 mmol/L (23-31); Chloride 95 mmol/L (98-107); Estimated GFR 71; Glucose 257 mg/dL (83-110); Potassium 4.5 mmol/L (3.5-5.1); Sodium 134 mmol/L (136-145)
[2023-02-15] MEDS: methylPREDNISolone Sod Succ 40 MG VIAL IVP SCH ×3 (05:27→21:23)
[2023-02-15] MEDS: HumaLOG 300 UNITS/3 ML VIAL SC PRN ×4 (05:27→21:24)
[2023-02-15] MEDS: Mometasone 200 MCG/Formoterol 5 MCG 120 PUFF INHALER INH SCH ×2 (07:19→18:35)
[2023-02-15] MEDS: Ipratropium Bromide 2.5 ml Neb NEB SCH ×4 (07:19→23:41)
[2023-02-15] MEDS: Ferrous Sulfate 325 MG TAB PO SCH (08:59)
[2023-02-15] MEDS: Pramipexole Di-HCl 0.25 MG TAB PO SCH ×2 (08:59→21:23)
[2023-02-15] MEDS: Furosemide 20 MG TAB PO SCH (08:59)
[2023-02-15] MEDS: Aspirin Chewable 81 MG TAB PO SCH (09:00)
[2023-02-15] MEDS: Losartan 25 MG TAB PO SCH (09:00)
[2023-02-15] MEDS: Pantoprazole 40 MG VIAL IVP SCH ×2 (09:00→21:24)
[2023-02-15] MEDS: Apixaban 5 MG TAB PO SCH ×2 (09:00→21:23)
[2023-02-15] MEDS: cefTRIAXone\\ROCEPHIN 1 GM in Sodium Chloride 0.9% 100 ML IVPB SCH (12:21)
[2023-02-15] MEDS: Bumetanide 1 MG/4 ML VIAL IVP SCH (13:17)
[2023-02-15] MEDS: hydrOXYzine 25 MG TAB PO PRN ×2 (15:25→21:26)
[2023-02-15] MEDS: Acetaminophen 325 MG TAB PO PRN ×2 (15:25→21:26)
[2023-02-15] MEDS: Ondansetron ODT 4 MG TAB PO PRN (18:05)
[2023-02-15] MEDS: Atorvastatin Calcium 40 MG TAB PO SCH (21:23)
[2023-02-16] MEDS: Acetaminophen 325 MG TAB PO PRN ×3 (02:08→21:31)
[2023-02-16] MEDS: hydrOXYzine 25 MG TAB PO PRN ×2 (03:42→21:32)
[2023-02-16 04:32] LABS: #Lymphocytes 0.9 thou/uL (1.20-3.40); #Monocytes 0.3 thou/uL (0.11-0.59); #Neutrophils 6.5 thou/uL (1.40-6.50); %Eosinophils 0.1 % (0.0-10.0); %Lymphocytes 11.3 % (21.0-51.0); %Monocytes 3.9 % (0.0-10.0); %Neutrophils 84.7 % (42.0-75.0); Hemoglobin 8.5 g/dL (12.0-16.0); Mean Corpuscular HGB CONC 29.7 g/dL (32.0-36.0); Mean Corpuscular Hemoglobin 24.2 pg (27.0-31.0); Mean Corpuscular Volume 81.6 fl (78.0-98.0); Mean Platelet Volume 8.2 fL (7.4-10.4); Platelet Count 382 10x3/uL (130-400); RBC Distribution Width 15.7 % (11.5-14.5); White Blood Cell (WBC) Count 7.6 10x3/uL (4.8-10.8)
[2023-02-16 04:53] LABS: Anion Gap 14 mmol/L (10-20); BUN (Urea Nitrogen) 28 mg/dL (9.8-20.1); Calc. Creatinine Clearance 133 mL/min (70-130); Calcium 8.8 mg/dL (7.8-10.44); Carbon Dioxide 30 mmol/L (23-31); Chloride 93 mmol/L (98-107); Estimated GFR 62; Glucose 274 mg/dL (83-110); Potassium 4.4 mmol/L (3.5-5.1); Sodium 133 mmol/L (136-145)
[2023-02-16] MEDS: HumaLOG 300 UNITS/3 ML VIAL SC PRN ×4 (06:14→21:30)
[2023-02-16] MEDS: methylPREDNISolone Sod Succ 40 MG VIAL IVP SCH ×3 (06:15→21:31)
[2023-02-16] MEDS: Bumetanide 1 MG/4 ML VIAL IVP SCH ×2 (06:15→13:34)
[2023-02-16] MEDS: Mometasone 200 MCG/Formoterol 5 MCG 120 PUFF INHALER INH SCH ×2 (07:51→19:01)
[2023-02-16] MEDS: Ipratropium Bromide 2.5 ml Neb NEB SCH ×4 (07:51→23:36)
[2023-02-16] MEDS: Apixaban 5 MG TAB PO SCH ×2 (08:03→21:32)
[2023-02-16] MEDS: Ferrous Sulfate 325 MG TAB PO SCH (08:03)
[2023-02-16] MEDS: Pramipexole Di-HCl 0.25 MG TAB PO SCH ×2 (08:04→21:31)
[2023-02-16] MEDS: Losartan 25 MG TAB PO SCH (08:04)
[2023-02-16] MEDS: Aspirin Chewable 81 MG TAB PO SCH (08:04)
[2023-02-16] MEDS: Pantoprazole 40 MG VIAL IVP SCH ×2 (08:05→21:31)
[2023-02-16] MEDS: cefTRIAXone\\ROCEPHIN 1 GM in Sodium Chloride 0.9% 100 ML IVPB SCH (13:34)
[2023-02-16] MEDS: Ondansetron ODT 4 MG TAB PO PRN (18:31)
[2023-02-16] MEDS: Atorvastatin Calcium 40 MG TAB PO SCH (21:31)
[2023-02-17 04:32] LABS: #Monocytes 0.3 thou/uL (0.11-0.59); %Lymphocytes 11.7 % (21.0-51.0); %Monocytes 3.8 % (0.0-10.0); %Neutrophils 83.8 % (42.0-75.0); Hemoglobin 8.9 g/dL (12.0-16.0); Mean Corpuscular HGB CONC 28.6 g/dL (32.0-36.0); Mean Corpuscular Hemoglobin 22.9 pg (27.0-31.0); Mean Corpuscular Volume 80.2 fl (78.0-98.0); Mean Platelet Volume 10.7 fL (7.4-10.4); Platelet Count 401 10x3/uL (130-400); RBC Distribution Width 16.4 % (11.5-14.5); Red Blood Cell (RBC) Count 3.88 mill/uL (4.20-5.40); White Blood Cell (WBC) Count 8.4 10x3/uL (4.8-10.8)
[2023-02-17 04:55] LABS: Anion Gap 11 mmol/L (10-20); BUN (Urea Nitrogen) 29 mg/dL (9.8-20.1); Calc. Creatinine Clearance 137 mL/min (70-130); Calcium 8.8 mg/dL (7.8-10.44); Carbon Dioxide 32 mmol/L (23-31); Chloride 92 mmol/L (98-107); Estimated GFR 63; Glucose 297 mg/dL (83-110); Potassium 4.3 mmol/L (3.5-5.1); Sodium 131 mmol/L (136-145)
[2023-02-17] MEDS: methylPREDNISolone Sod Succ 40 MG VIAL IVP SCH ×3 (06:00→21:00)
[2023-02-17] MEDS: HumaLOG 300 UNITS/3 ML VIAL SC PRN ×4 (06:01→20:57)
[2023-02-17] MEDS: Bumetanide 1 MG/4 ML VIAL IVP SCH ×2 (06:02→12:52)
[2023-02-17] MEDS: Mometasone 200 MCG/Formoterol 5 MCG 120 PUFF INHALER INH SCH ×2 (07:13→19:03)
[2023-02-17] MEDS: Ipratropium Bromide 2.5 ml Neb NEB SCH ×3 (07:16→19:02)
[2023-02-17] MEDS: Pantoprazole 40 MG VIAL IVP SCH ×2 (08:26→20:59)
[2023-02-17] MEDS: Losartan 25 MG TAB PO SCH (08:28)
[2023-02-17] MEDS: Pramipexole Di-HCl 0.25 MG TAB PO SCH ×2 (08:28→20:58)
[2023-02-17] MEDS: Aspirin Chewable 81 MG TAB PO SCH (08:28)
[2023-02-17] MEDS: Apixaban 5 MG TAB PO SCH ×2 (08:28→20:58)
[2023-02-17] MEDS: Ferrous Sulfate 325 MG TAB PO SCH (08:28)
[2023-02-17] MEDS: cefTRIAXone\\ROCEPHIN 1 GM in Sodium Chloride 0.9% 100 ML IVPB SCH (12:51)
[2023-02-17] MEDS: Acetaminophen 325 MG TAB PO PRN ×2 (15:29→22:14)
[2023-02-17] MEDS: Atorvastatin Calcium 40 MG TAB PO SCH (20:58)
[2023-02-17] MEDS: hydrOXYzine 25 MG TAB PO PRN (22:14)
[2023-02-18] MEDS: Ipratropium Bromide 2.5 ml Neb NEB SCH ×5 (00:04→23:41)
[2023-02-18] MEDS: Acetaminophen 325 MG TAB PO PRN ×3 (03:29→21:15)
[2023-02-18] MEDS ORDERED: Ipratropium/Albuterol 3 ML NEB ONE (04:21)
[2023-02-18 04:36] LABS: #Monocytes 0.3 thou/uL (0.11-0.59); #Neutrophils 7.8 thou/uL (1.40-6.50); %Basophils 0.1 % (0.0-1.0); %Eosinophils 0.1 % (0.0-10.0); %Lymphocytes 10.9 % (21.0-51.0); %Monocytes 3.7 % (0.0-10.0); %Neutrophils 84.4 % (42.0-75.0); Hemoglobin 8.4 g/dL (12.0-16.0); Mean Corpuscular HGB CONC 29.1 g/dL (32.0-36.0); Mean Corpuscular Hemoglobin 23.1 pg (27.0-31.0); Mean Corpuscular Volume 79.6 fl (78.0-98.0); Mean Platelet Volume 10.4 fL (7.4-10.4); Platelet Count 377 10x3/uL (130-400); RBC Distribution Width 16.6 % (11.5-14.5); Red Blood Cell (RBC) Count 3.63 mill/uL (4.20-5.40); White Blood Cell (WBC) Count 9.3 10x3/uL (4.8-10.8)
[2023-02-18 05:05] LABS: Anion Gap 14 mmol/L (10-20); BUN (Urea Nitrogen) 36 mg/dL (9.8-20.1); Calc. Creatinine Clearance 121 mL/min (70-130); Carbon Dioxide 33 mmol/L (23-31); Chloride 89 mmol/L (98-107); Estimated GFR 54; Glucose 309 mg/dL (83-110); Potassium 4.6 mmol/L (3.5-5.1); Sodium 131 mmol/L (136-145)
[2023-02-18] MEDS: HumaLOG 300 UNITS/3 ML VIAL SC PRN ×4 (05:25→21:16)
[2023-02-18] MEDS: Bumetanide 1 MG/4 ML VIAL IVP SCH ×2 (05:26→13:25)
[2023-02-18] MEDS: methylPREDNISolone Sod Succ 40 MG VIAL IVP SCH ×3 (05:26→21:16)
[2023-02-18] MEDS: hydrOXYzine 25 MG TAB PO PRN ×2 (05:26→21:16)
[2023-02-18] MEDS: Mometasone 200 MCG/Formoterol 5 MCG 120 PUFF INHALER INH SCH ×2 (07:33→18:41)
[2023-02-18] MEDS: Apixaban 5 MG TAB PO SCH ×2 (08:49→21:15)
[2023-02-18] MEDS: Ferrous Sulfate 325 MG TAB PO SCH (08:50)
[2023-02-18] MEDS: Aspirin Chewable 81 MG TAB PO SCH (08:50)
[2023-02-18] MEDS: Pramipexole Di-HCl 0.25 MG TAB PO SCH ×2 (08:50→21:15)
[2023-02-18] MEDS: Losartan 25 MG TAB PO SCH (08:50)
[2023-02-18] MEDS: Pantoprazole 40 MG VIAL IVP SCH ×2 (08:51→21:17)
[2023-02-18] MEDS: cefTRIAXone\\ROCEPHIN 1 GM in Sodium Chloride 0.9% 100 ML IVPB SCH (13:25)
[2023-02-18] MEDS ORDERED: Senokot S 8.6-50 MG TAB PO PRN (20:23)
[2023-02-18] MEDS ORDERED: Bisacodyl 5 MG TAB PO PRN (20:23)
[2023-02-18] MEDS: Atorvastatin Calcium 40 MG TAB PO SCH (21:14)
[2023-02-19] MEDS: Acetaminophen 325 MG TAB PO PRN ×3 (02:12→20:47)
[2023-02-19] MEDS: hydrOXYzine 25 MG TAB PO PRN ×4 (03:16→23:16)
[2023-02-19 04:12] LABS: #Monocytes 0.4 thou/uL (0.11-0.59); #Neutrophils 7.4 thou/uL (1.40-6.50); %Basophils 0.1 % (0.0-1.0); %Lymphocytes 8.9 % (21.0-51.0); %Monocytes 4.4 % (0.0-10.0); %Neutrophils 85.2 % (42.0-75.0); Hemoglobin 8.8 g/dL (12.0-16.0); Mean Corpuscular HGB CONC 29.8 g/dL (32.0-36.0); Mean Corpuscular Hemoglobin 23.2 pg (27.0-31.0); Mean Corpuscular Volume 77.8 fl (78.0-98.0); Mean Platelet Volume 10.4 fL (7.4-10.4); Platelet Count 367 10x3/uL (130-400); RBC Distribution Width 16.6 % (11.5-14.5); Red Blood Cell (RBC) Count 3.79 mill/uL (4.20-5.40); White Blood Cell (WBC) Count 8.7 10x3/uL (4.8-10.8)
[2023-02-19 04:36] LABS: Anion Gap 14 mmol/L (10-20); BUN (Urea Nitrogen) 37 mg/dL (9.8-20.1); Calc. Creatinine Clearance 114 mL/min (70-130); Calcium 8.9 mg/dL (7.8-10.44); Carbon Dioxide 33 mmol/L (23-31); Chloride 89 mmol/L (98-107); Estimated GFR 51; Glucose 382 mg/dL (83-110); Potassium 4.3 mmol/L (3.5-5.1); Sodium 132 mmol/L (136-145)
[2023-02-19 04:55] LABS: Anisocytosis SLIGHT = 6-15 cells HPF (0-5); CellaVision Operator ID lab.sh2; Hypochromia SLIGHT = 6-15 cells HPF (0-5); Macrocytosis SLIGHT = 6-15 cells HPF (0-5); Platelet Morphology Comment Platelets Normal; Polychromasia SLIGHT = 2-3 cells HPF (0-2)
[2023-02-19] MEDS: Bumetanide 1 MG/4 ML VIAL IVP SCH ×2 (05:33→16:14)
[2023-02-19] MEDS: HumaLOG 300 UNITS/3 ML VIAL SC PRN ×4 (05:33→20:47)
[2023-02-19] MEDS: Ipratropium Bromide 2.5 ml Neb NEB SCH ×3 (07:59→19:17)
[2023-02-19] MEDS: Mometasone 200 MCG/Formoterol 5 MCG 120 PUFF INHALER INH SCH ×2 (08:06→19:19)
[2023-02-19] MEDS: Apixaban 5 MG TAB PO SCH ×2 (09:17→20:46)
[2023-02-19] MEDS: Ferrous Sulfate 325 MG TAB PO SCH (09:18)
[2023-02-19] MEDS: Aspirin Chewable 81 MG TAB PO SCH (09:19)
[2023-02-19] MEDS: methylPREDNISolone Sod Succ 40 MG VIAL IVP SCH (09:20)
[2023-02-19] MEDS: Losartan 25 MG TAB PO SCH (09:20)
[2023-02-19] MEDS: Pantoprazole 40 MG VIAL IVP SCH ×2 (09:20→20:46)
[2023-02-19] MEDS: Pramipexole Di-HCl 0.25 MG TAB PO SCH ×2 (09:20→20:46)
[2023-02-19] MEDS: cefTRIAXone\\ROCEPHIN 1 GM in Sodium Chloride 0.9% 100 ML IVPB SCH (12:03)
[2023-02-19] MEDS: Atorvastatin Calcium 40 MG TAB PO SCH (20:46)
[2023-02-19] MEDS ORDERED: Phenol 118 ML BOT PO PRN (23:47)
[2023-02-20] MEDS: Ipratropium Bromide 2.5 ml Neb NEB SCH ×3 (01:34→12:51)
[2023-02-20 04:41] LABS: #Neutrophils 8.6 thou/uL (1.40-6.50); %Basophils 0.2 % (0.0-1.0); %Lymphocytes 19.7 % (21.0-51.0); %Monocytes 7.9 % (0.0-10.0); %Neutrophils 71.2 % (42.0-75.0); Hemoglobin 8.6 g/dL (12.0-16.0); Mean Corpuscular HGB CONC 28.8 g/dL (32.0-36.0); Mean Corpuscular Hemoglobin 23.1 pg (27.0-31.0); Mean Corpuscular Volume 80.2 fl (78.0-98.0); Mean Platelet Volume 10.7 fL (7.4-10.4); Platelet Count 363 10x3/uL (130-400); RBC Distribution Width 16.9 % (11.5-14.5); Red Blood Cell (RBC) Count 3.73 mill/uL (4.20-5.40); White Blood Cell (WBC) Count 12.1 10x3/uL (4.8-10.8)
[2023-02-20 05:04] LABS: Anion Gap 11 mmol/L (10-20); BUN (Urea Nitrogen) 31 mg/dL (9.8-20.1); Calc. Creatinine Clearance 140 mL/min (70-130); Calcium 8.6 mg/dL (7.8-10.44); Carbon Dioxide 34 mmol/L (23-31); Chloride 91 mmol/L (98-107); Estimated GFR 66; Glucose 220 mg/dL (83-110); Potassium 4.2 mmol/L (3.5-5.1); Sodium 132 mmol/L (136-145)
[2023-02-20] MEDS: hydrOXYzine 25 MG TAB PO PRN (05:25)
[2023-02-20] MEDS: HumaLOG 300 UNITS/3 ML VIAL SC PRN (05:27)
[2023-02-20] MEDS: Mometasone 200 MCG/Formoterol 5 MCG 120 PUFF INHALER INH SCH (07:06)
[2023-02-20] MEDS ORDERED: predniSONE 20 MG TAB PO SCH (08:00)
[2023-02-20 08:51] LABS: CellaVision Operator ID LAB.NR; Hypochromia SLIGHT = 6-15 cells HPF (0-5); Platelet Morphology Comment Platelets Normal; Polychromasia SLIGHT = 2-3 cells HPF (0-2)
[2023-02-20] MEDS: Pantoprazole 40 MG VIAL IVP SCH (09:49)
[2023-02-20] MEDS: Losartan 25 MG TAB PO SCH (09:49)
[2023-02-20] MEDS: Aspirin Chewable 81 MG TAB PO SCH (09:50)
[2023-02-20] MEDS: Pramipexole Di-HCl 0.25 MG TAB PO SCH (09:50)
[2023-02-20] MEDS: Acetaminophen 325 MG TAB PO PRN (09:50)
[2023-02-20] MEDS: Ferrous Sulfate 325 MG TAB PO SCH (09:50)
[2023-02-20] MEDS: Apixaban 5 MG TAB PO SCH (09:51)
[2023-02-20 11:51] VITALS: BP 117/59; TEMP 98.4
[2023-02-20] MEDS: cefTRIAXone\\ROCEPHIN 1 GM in Sodium Chloride 0.9% 100 ML IVPB SCH (14:02)
== END 2023-02-20 14:34 | disposition home health service (06) | DRG 291 ==
LOC: ERS 15:25 → ERHOLD 17:37 → 2NO 18:35
PROVIDERS: ADMIT Internal Medicine; ATTEND Internal Medicine
DX: I11.0 Hypertensive heart disease with heart failure (principal); I50.33 Acute on chronic diastolic (congestive) heart failure; J96.21 Acute and chronic respiratory failure with hypoxia; J44.1 Chronic obstructive pulmonary disease with (acute) exacerbation; Z68.43 Body mass index [BMI] 50.0-59.9, adult; E03.9 Hypothyroidism, unspecified; E11.65 Type 2 diabetes mellitus with hyperglycemia; K21.9 Gastro-esophageal reflux disease without esophagitis; G89.29 Other chronic pain; M54.9 Dorsalgia, unspecified; F41.9 Anxiety disorder, unspecified; F32.A Depression, unspecified; D64.9 Anemia, unspecified; E06.3 Autoimmune thyroiditis; I48.0 Paroxysmal atrial fibrillation; R13.10 Dysphagia, unspecified; E66.01 Morbid (severe) obesity due to excess calories; Z88.2 Allergy status to sulfonamides; Z91.041 Radiographic dye allergy status; Z79.01 Long term (current) use of anticoagulants; Z99.81 Dependence on supplemental oxygen; Z79.52 Long term (current) use of systemic steroids; Z79.899 Other long term (current) drug therapy; Z90.89 Acquired absence of other organs; Z79.890 Hormone replacement therapy; Z98.84 Bariatric surgery status
CPT/HCPCS: 36415; 36416; 71045; 80048; 80053; 80061; 82728; 83036; 83540; 83550; 83690; 83735; 83880; 84484; 85025; 86850; 86900; 86901; 93005; 93306; 94640; 94760; 96374; C9113; J0696; J1815; J1940; J2920; J3490; J7512; J7611; J7620; Q0162

== ENCOUNTER 2023-04-09 14:25 | Observation (INO) | payer MEDICARE ==
[2023-04-09 15:18] LABS: #Eosinphils 0.2 thou/uL (0.0-0.7); #Monocytes 0.6 thou/uL (0.11-0.59); #Neutrophils 4.3 thou/uL (1.40-6.50); %Basophils 0.4 % (0.0-1.0); %Eosinophils 2.6 % (0.0-10.0); %Lymphocytes 24.9 % (21.0-51.0); %Monocytes 8.2 % (0.0-10.0); %Neutrophils 63.5 % (42.0-75.0); Mean Corpuscular Hemoglobin 25.1 pg (27.0-31.0); Mean Corpuscular Volume 83.8 fl (78.0-98.0); Mean Platelet Volume 11.3 fL (7.4-10.4); RBC Distribution Width 17.3 % (11.5-14.5); Red Blood Cell (RBC) Count 3.58 mill/uL (4.20-5.40); White Blood Cell (WBC) Count 6.8 10x3/uL (4.8-10.8)
[2023-04-09 15:23] LABS: Platelet Count 247 10x3/uL (130-400)
[2023-04-09 15:33] LABS: ALT (SGPT) Less than 7 U/L (8-55); AST (SGOT) 11 U/L (5-34); Albumin 3.6 g/dL (3.4-4.8); Alkaline Phosphatase 46 U/L (40-110); Anion Gap 11 mmol/L (10-20); BUN (Urea Nitrogen) 10 mg/dL (9.8-20.1); Bilirubin, Total 0.3 mg/dL (0.2-1.2); Calc. Creatinine Clearance 0 mL/min (70-130); Calcium 9.3 mg/dL (7.8-10.44); Carbon Dioxide 32 mmol/L (23-31); Chloride 98 mmol/L (98-107); Estimated GFR 85; Globulin 2.7 g/dL (2.4-3.5); Glucose 104 mg/dL (83-110); Lipase Less than 4 U/L (8-78); Potassium 3.3 mmol/L (3.5-5.1); Protein, Total 6.3 g/dL (5.8-8.1); Sodium 138 mmol/L (136-145)
[2023-04-09] MEDS ORDERED: Pantoprazole 40 MG VIAL ONE (15:43)
[2023-04-09] MEDS ORDERED: Pantoprazole 80 MG, Admixture Fee 1 EACH in Sodium Chloride 0.9% 100 ML IVPB SCH (15:45)
[2023-04-09 16:22] LABS: INR-International Normal Ratio 1.1; PTT 37.3 sec (22.9-36.1); Prothrombin Time 14.9 sec (12.0-14.7)
[2023-04-09 17:42] LABS: Bacteria/HPF 3+ HPF (None Seen); Bilirubin Negative (Negative); Blood, Urine Negative (Negative); CAUTI Indications for Culture Dysuria,urgency,freq; Clarity Clear (Clear); Glucose, Urine (Dipstick) Normal (Negative); Ketone, Urine Negative (Negative); Leukocyte 25 Leu/uL (Negative); Nitrite Negative (Negative); Protein, Urine (Dipstick) Negative (Neg-Trace); RBC/HPF 0-3 HPF (0-3); Specific Gravity, Urine 1.008 (1.002-1.036); Urobilinogen Normal mg/dL (Less than 2); pH, Urine 7.5 (5.0-9.0)
[2023-04-09 17:44] LABS: Urine Culture Reflex No No
[2023-04-09] MEDS ORDERED: Acetaminophen 325 MG TAB PO PRN (17:58)
[2023-04-09] MEDS ORDERED: Nitroglycerin 0.4 MG TAB (25 Tab Bottle) SL PRN (18:07)
[2023-04-09] MEDS ORDERED: Ondansetron ODT 4 MG TAB PO PRN (19:03)
[2023-04-09] MEDS ORDERED: Pramipexole Di-HCl 0.25 MG TAB PO PRN (19:04)
[2023-04-09] MEDS ORDERED: Ipratropium Bromide 2.5 ml Neb NEB PRN (19:07)
[2023-04-09 21:02] VITALS: BMI 53.1
[2023-04-09] MEDS: Simvastatin 10 MG TAB PO SCH (21:27)
[2023-04-09] MEDS: Pantoprazole 40 MG VIAL IVP SCH (21:27)
[2023-04-09] MEDS: Acetaminophen/Codeine 30-300mg Tablet PO PRN (21:29)
[2023-04-10 06:20] LABS: #Eosinphils 0.2 thou/uL (0.0-0.7); #Monocytes 0.5 thou/uL (0.11-0.59); #Neutrophils 2.9 thou/uL (1.40-6.50); %Basophils 0.4 % (0.0-1.0); %Eosinophils 3.8 % (0.0-10.0); %Lymphocytes 31.9 % (21.0-51.0); %Monocytes 8.9 % (0.0-10.0); %Neutrophils 54.6 % (42.0-75.0); Hemoglobin 8.8 g/dL (12.0-16.0); Mean Corpuscular HGB CONC 29.9 g/dL (32.0-36.0); Mean Corpuscular Hemoglobin 25.3 pg (27.0-31.0); Mean Corpuscular Volume 84.5 fl (78.0-98.0); Mean Platelet Volume 10.5 fL (7.4-10.4); Platelet Count 262 10x3/uL (130-400); RBC Distribution Width 17.2 % (11.5-14.5); Red Blood Cell (RBC) Count 3.48 mill/uL (4.20-5.40); White Blood Cell (WBC) Count 5.3 10x3/uL (4.8-10.8)
[2023-04-10 06:33] LABS: ALT (SGPT) Less than 7 U/L (8-55); AST (SGOT) 10 U/L (5-34); Albumin 3.3 g/dL (3.4-4.8); Alkaline Phosphatase 46 U/L (40-110); Anion Gap 10 mmol/L (10-20); BUN (Urea Nitrogen) 6 mg/dL (9.8-20.1); Bilirubin, Total 0.3 mg/dL (0.2-1.2); Calc. Creatinine Clearance 169 mL/min (70-130); Calcium 8.6 mg/dL (7.8-10.44); Carbon Dioxide 32 mmol/L (23-31); Chloride 103 mmol/L (98-107); Estimated GFR 88; Globulin 2.5 g/dL (2.4-3.5); Glucose 107 mg/dL (83-110); Potassium 3.2 mmol/L (3.5-5.1); Protein, Total 5.8 g/dL (5.8-8.1); Sodium 142 mmol/L (136-145)
[2023-04-10] MEDS ORDERED: Levothyroxine 150 MCG TAB PO SCH (07:30)
[2023-04-10] MEDS ORDERED: Electrolyte Replacement Protocol 1 EACH FS SCH (07:30)
[2023-04-10] MEDS ORDERED: Potassium Chloride 20 MEQ TAB PO SCH (08:00)
[2023-04-10] MEDS: Mometasone 200 MCG/Formoterol 5 MCG 120 PUFF INHALER INH SCH ×2 (08:14→18:30)
[2023-04-10] MEDS: Losartan 25 MG TAB PO SCH (08:48)
[2023-04-10] MEDS: Acetaminophen/Codeine 30-300mg Tablet PO PRN ×2 (08:49→16:50)
[2023-04-10] MEDS: Furosemide 20 MG TAB PO SCH (08:49)
[2023-04-10] MEDS: Citalopram 20 MG TAB PO SCH (08:49)
[2023-04-10] MEDS: Pantoprazole 40 MG VIAL IVP SCH ×2 (08:50→20:03)
[2023-04-10 13:14] LABS: Hemoglobin 8.9 g/dL (12.0-16.0)
[2023-04-10] MEDS: Apixaban 5 MG TAB PO SCH (20:02)
[2023-04-10] MEDS: Simvastatin 10 MG TAB PO SCH (20:02)
[2023-04-11 05:32] LABS: Anion Gap 18 mmol/L (10-20); BUN (Urea Nitrogen) 4 mg/dL (9.8-20.1); Calc. Creatinine Clearance 160 mL/min (70-130); Calcium 8.6 mg/dL (7.8-10.44); Carbon Dioxide 21 mmol/L (23-31); Chloride 103 mmol/L (98-107); Estimated GFR 83; Glucose 117 mg/dL (83-110); Potassium 3.8 mmol/L (3.5-5.1); Sodium 138 mmol/L (136-145)
[2023-04-11] MEDS ORDERED: Levothyroxine 150 MCG TAB PO SCH (06:00)
[2023-04-11] MEDS: Mometasone 200 MCG/Formoterol 5 MCG 120 PUFF INHALER INH SCH (07:28)
[2023-04-11] MEDS ORDERED: Ferrous Sulfate 325 MG TAB PO SCH (08:00)
[2023-04-11 08:33] VITALS: BP 161/70; TEMP 98.2
[2023-04-11] MEDS: Losartan 25 MG TAB PO SCH (08:49)
[2023-04-11] MEDS: Citalopram 20 MG TAB PO SCH (08:49)
[2023-04-11] MEDS: Apixaban 5 MG TAB PO SCH (08:49)
[2023-04-11] MEDS: Furosemide 20 MG TAB PO SCH (08:50)
[2023-04-11] MEDS: Pantoprazole 40 MG VIAL IVP SCH (08:50)
[2023-04-11 09:18] LABS: #Eosinphils 0.2 thou/uL (0.0-0.7); #Monocytes 0.7 thou/uL (0.11-0.59); #Neutrophils 5.7 thou/uL (1.40-6.50); %Basophils 0.1 % (0.0-1.0); %Eosinophils 2.8 % (0.0-10.0); %Lymphocytes 18.1 % (21.0-51.0); %Neutrophils 69.6 % (42.0-75.0); Hemoglobin 9.4 g/dL (12.0-16.0); Mean Corpuscular HGB CONC 29.7 g/dL (32.0-36.0); Mean Corpuscular Hemoglobin 25.5 pg (27.0-31.0); Mean Corpuscular Volume 85.6 fl (78.0-98.0); Mean Platelet Volume 10.9 fL (7.4-10.4); Platelet Count 251 10x3/uL (130-400); RBC Distribution Width 17.1 % (11.5-14.5); Red Blood Cell (RBC) Count 3.69 mill/uL (4.20-5.40); White Blood Cell (WBC) Count 8.1 10x3/uL (4.8-10.8)
== END 2023-04-11 12:15 | disposition home health service (06) ==
LOC: SUATTDRO 14:25 → ERS 14:25 → ERHOLD 17:52 → 2SW 20:42
PROVIDERS: ADMIT Family Medicine; ATTEND Internal Medicine
DX: K92.1 Melena (principal); I11.0 Hypertensive heart disease with heart failure; I50.32 Chronic diastolic (congestive) heart failure; I48.0 Paroxysmal atrial fibrillation; R41.0 Disorientation, unspecified; J44.9 Chronic obstructive pulmonary disease, unspecified; K21.9 Gastro-esophageal reflux disease without esophagitis; E66.01 Morbid (severe) obesity due to excess calories; I10 Essential (primary) hypertension; E03.9 Hypothyroidism, unspecified; F41.9 Anxiety disorder, unspecified; D50.9 Iron deficiency anemia, unspecified; F32.A Depression, unspecified; Z88.2 Allergy status to sulfonamides; Z91.041 Radiographic dye allergy status; Z79.899 Other long term (current) drug therapy; Z79.890 Hormone replacement therapy; Z68.43 Body mass index [BMI] 50.0-59.9, adult
CPT/HCPCS: 71045; 74176; 80048; 80053; 81001; 83605; 83690; 83880; 84439; 84484; 85014; 85018; 85025 ×2; 85610; 85730; 93005; 94640 ×2; 96365; 96366; 96376 ×3; 97110; 99285; G0378 ×4; 36415; 84443; C9113; J3490

== ENCOUNTER 2023-05-21 17:35 | Inpatient (IN) | payer MEDICARE ==
[2023-05-21 18:43] LABS: #Monocytes 0.7 thou/uL (0.11-0.59); #Neutrophils 6.3 thou/uL (1.40-6.50); %Basophils 0.3 % (0.0-1.0); %Eosinophils 0.2 % (0.0-10.0); %Lymphocytes 21.6 % (21.0-51.0); %Monocytes 7.6 % (0.0-10.0); %Neutrophils 69.9 % (42.0-75.0); Hematocrit 34.5 % (36.0-47.0); Hemoglobin 10.3 g/dL (12.0-16.0); Mean Corpuscular HGB CONC 29.9 g/dL (32.0-36.0); Mean Corpuscular Hemoglobin 25.8 pg (27.0-31.0); Mean Corpuscular Volume 86.5 fl (78.0-98.0); Mean Platelet Volume 10.4 fL (7.4-10.4); Platelet Count 276 10x3/uL (130-400); RBC Distribution Width 16.9 % (11.5-14.5); Red Blood Cell (RBC) Count 3.99 mill/uL (4.20-5.40); White Blood Cell (WBC) Count 9.1 10x3/uL (4.8-10.8)
[2023-05-21 18:57] LABS: INR-International Normal Ratio 1.1; PTT 37.6 sec (22.9-36.1)
[2023-05-21 19:15] LABS: ALT (SGPT) 12 U/L (8-55); AST (SGOT) 48 U/L (5-34); Albumin 3.7 g/dL (3.4-4.8); Alkaline Phosphatase 44 U/L (40-110); Anion Gap 11 mmol/L (10-20); BUN (Urea Nitrogen) 14 mg/dL (9.8-20.1); Bilirubin, Total 0.4 mg/dL (0.2-1.2); Calc. Creatinine Clearance 0 mL/min (70-130); Carbon Dioxide 34 mmol/L (23-31); Chloride 96 mmol/L (98-107); Estimated GFR 63; Globulin 3.1 g/dL (2.4-3.5); Glucose 122 mg/dL (83-110); Lipase Less than 4 U/L (8-78); Potassium 4.1 mmol/L (3.5-5.1); Protein, Total 6.8 g/dL (5.8-8.1); Sodium 137 mmol/L (136-145)
[2023-05-21 19:31] LABS: Troponin I 2.598 ng/mL (< 0.028)
[2023-05-21 19:59] LABS: Bacteria/HPF None Seen HPF (None Seen); Bilirubin Negative (Negative); Blood, Urine 1+ (Negative); CAUTI Indications for Culture Alt mental st,lethar; Clarity Clear (Clear); Glucose, Urine (Dipstick) Normal (Negative); Ketone, Urine Negative (Negative); Leukocyte Negative Leu/uL (Negative); Nitrite Negative (Negative); Protein, Urine (Dipstick) 70 mg/dL (Neg-Trace); RBC/HPF 0-3 HPF (0-3); Specific Gravity, Urine 1.027 (1.002-1.036); Squamous Epithelial 0-3 HPF (0-3); WBC/HPF 0-3 HPF (0-3)
[2023-05-21 20:00] LABS: Urine Culture Reflex No No
[2023-05-21] MEDS ORDERED: cefTRIAXone (ROCEPHIN) 1 GM VIAL ONE (20:46)
[2023-05-21] MEDS ORDERED: Furosemide 40 MG/4 ML VIAL ONE (20:46)
[2023-05-21] MEDS ORDERED: Azithromycin 500 MG VIAL ONE (22:20)
[2023-05-21 22:27] LABS: Critical Call Chem Troponin I RESULT DECREASING
[2023-05-21] MEDS ORDERED: Ondansetron PF 4 MG/2 ML Vial IVP PRN (22:50)
[2023-05-21] MEDS ORDERED: Acetaminophen 650 MG Suppository PR PRN (22:50)
[2023-05-21] MEDS ORDERED: Ondansetron ODT 4 MG TAB PO PRN (22:50)
[2023-05-21] MEDS ORDERED: Ipratropium/Albuterol 3 ML NEB NEB PRN (22:54)
[2023-05-21] MEDS ORDERED: Electrolyte Replacement Protocol 1 EACH FS PRN (23:30)
[2023-05-22] MEDS: Ipratropium/Albuterol 3 ML NEB NEB SCH ×6 (02:20→21:56)
[2023-05-22 04:47] LABS: #Monocytes 0.1 thou/uL (0.11-0.59); #Neutrophils 5.9 thou/uL (1.40-6.50); %Basophils 0.1 % (0.0-1.0); %Lymphocytes 11.9 % (21.0-51.0); %Monocytes 0.7 % (0.0-10.0); %Neutrophils 86.7 % (42.0-75.0); Hematocrit 33.1 % (36.0-47.0); Hemoglobin 9.9 g/dL (12.0-16.0); Mean Corpuscular HGB CONC 29.9 g/dL (32.0-36.0); Mean Corpuscular Hemoglobin 25.3 pg (27.0-31.0); Mean Corpuscular Volume 84.4 fl (78.0-98.0); Mean Platelet Volume 10.8 fL (7.4-10.4); Platelet Count 241 10x3/uL (130-400); RBC Distribution Width 16.7 % (11.5-14.5); Red Blood Cell (RBC) Count 3.92 mill/uL (4.20-5.40); White Blood Cell (WBC) Count 6.8 10x3/uL (4.8-10.8)
[2023-05-22 05:09] LABS: Anion Gap 16 mmol/L (10-20); BUN (Urea Nitrogen) 17 mg/dL (9.8-20.1); Calc. Creatinine Clearance 149 mL/min (70-130); Calcium 9.1 mg/dL (7.8-10.44); Carbon Dioxide 31 mmol/L (23-31); Chloride 95 mmol/L (98-107); Estimated GFR 73; Glucose 187 mg/dL (83-110); Magnesium 1.7 mg/dL (1.6-2.6); Sodium 138 mmol/L (136-145)
[2023-05-22] MEDS ORDERED: Morphine 4 MG/ML VIAL SLOW IVP PRN (05:48)
[2023-05-22] MEDS: Furosemide 40 MG/4 ML VIAL SLOW IVP SCH ×2 (06:19→16:41)
[2023-05-22] MEDS: Levothyroxine 150 MCG TAB PO SCH (06:43)
[2023-05-22 07:28] LABS: Troponin I 2.381 ng/mL (< 0.028)
[2023-05-22] MEDS ORDERED: Magnesium 2 GM/50 ML(in water) 2 GM in Premix Bag 1 BAG IVPB SCH (08:00)
[2023-05-22 09:05] LABS: Base Excess 14.2 mEq/L (-2.0 to +3.0); Calcium, Ionized (venous) 1.06 mmol/L (1.16-1.32); Chloride (VBG) 94 mmol/L (98-106); Hematocrit-VBG 32 % (36.0-47.0); Hemoglobin (Hb) 10.9 g/dL (11.7-16.1); Potassium (VBG) 3.77 mmol/L (3.70-5.30); Sodium 137.6 mmol/L (133-146); pH (venous) 7.414 (7.32-7.43)
[2023-05-22 09:07] LABS: Actual Bicarbonate (HCO3v) 41.3 mEq/L (22-28)
[2023-05-22] MEDS ORDERED: AcetaZOLAMIDE 250 MG TAB PO SCH (10:00)
[2023-05-22] MEDS ORDERED: Aspirin 81 mg Enteric Coated Tablet PO SCH (11:00)
[2023-05-22] MEDS: Acetaminophen 325 MG TAB PO PRN ×2 (12:01→20:03)
[2023-05-22] MEDS: methylPREDNISolone Sod Succ 40 MG VIAL IVP SCH (12:04)
[2023-05-22 16:12] LABS: Anion Gap 12 mmol/L (10-20); BUN (Urea Nitrogen) 21 mg/dL (9.8-20.1); Calc. Creatinine Clearance 135 mL/min (70-130); Calcium 9.3 mg/dL (7.8-10.44); Carbon Dioxide 37 mmol/L (23-31); Chloride 94 mmol/L (98-107); Estimated GFR 65; Glucose 211 mg/dL (83-110); Potassium 3.7 mmol/L (3.5-5.1); Sodium 139 mmol/L (136-145)
[2023-05-22] MEDS: AcetaZOLAMIDE 250 MG TAB PO SCH ×2 (16:40→20:03)
[2023-05-22] MEDS: Apixaban 5 MG TAB PO SCH (20:03)
[2023-05-22] MEDS: cefTRIAXone\\ROCEPHIN 1 GM in Sodium Chloride 0.9% 100 ML IVPB SCH (20:04)
[2023-05-22] MEDS ORDERED: hydrOXYzine 25 MG TAB PO SCH (20:45)
[2023-05-23] MEDS: Ipratropium/Albuterol 3 ML NEB NEB SCH ×6 (02:06→22:35)
[2023-05-23 04:46] LABS: #Monocytes 0.7 thou/uL (0.11-0.59); #Neutrophils 6.1 thou/uL (1.40-6.50); %Basophils 0.1 % (0.0-1.0); %Lymphocytes 15.6 % (21.0-51.0); %Neutrophils 75.7 % (42.0-75.0); Hemoglobin 9.4 g/dL (12.0-16.0); Mean Corpuscular HGB CONC 30.3 g/dL (32.0-36.0); Mean Corpuscular Hemoglobin 25.3 pg (27.0-31.0); Mean Corpuscular Volume 83.3 fl (78.0-98.0); Mean Platelet Volume 10.7 fL (7.4-10.4); Platelet Count 293 10x3/uL (130-400); RBC Distribution Width 16.6 % (11.5-14.5); Red Blood Cell (RBC) Count 3.72 mill/uL (4.20-5.40); White Blood Cell (WBC) Count 8.1 10x3/uL (4.8-10.8)
[2023-05-23 05:14] LABS: ALT (SGPT) 11 U/L (8-55); AST (SGOT) 30 U/L (5-34); Albumin 3.7 g/dL (3.4-4.8); Alkaline Phosphatase 39 U/L (40-110); Anion Gap 10 mmol/L (10-20); BUN (Urea Nitrogen) 23 mg/dL (9.8-20.1); Bilirubin, Total 0.2 mg/dL (0.2-1.2); Calc. Creatinine Clearance 153 mL/min (70-130); Calcium 9.3 mg/dL (7.8-10.44); Carbon Dioxide 34 mmol/L (23-31); Chloride 96 mmol/L (98-107); Estimated GFR 75; Globulin 3.3 g/dL (2.4-3.5); Glucose 133 mg/dL (83-110); Magnesium 1.9 mg/dL (1.6-2.6); Potassium 3.5 mmol/L (3.5-5.1); Sodium 136 mmol/L (136-145)
[2023-05-23] MEDS: Acetaminophen 325 MG TAB PO PRN ×4 (05:34→16:29)
[2023-05-23] MEDS: Furosemide 40 MG/4 ML VIAL SLOW IVP SCH (05:34)
[2023-05-23] MEDS: Levothyroxine 150 MCG TAB PO SCH (05:34)
[2023-05-23] MEDS ORDERED: Magnesium 2 GM/50 ML(in water) 2 GM in Premix Bag 1 BAG IVPB SCH (08:00)
[2023-05-23] MEDS ORDERED: Potassium Chloride 20 MEQ TAB PO SCH (08:00)
[2023-05-23] MEDS ORDERED: Ipratropium/Albuterol 3 ML NEB NEB PRN (09:12)
[2023-05-23] MEDS ORDERED: Polyethylene Glycol 3350 17 GM Packet PO PRN (09:13)
[2023-05-23] MEDS: AcetaZOLAMIDE 250 MG TAB PO SCH ×3 (10:01→20:16)
[2023-05-23] MEDS: Aspirin 81 mg Enteric Coated Tablet PO SCH (10:01)
[2023-05-23] MEDS: Apixaban 5 MG TAB PO SCH ×2 (10:02→20:16)
[2023-05-23] MEDS: methylPREDNISolone Sod Succ 40 MG VIAL IVP SCH (10:04)
[2023-05-23] MEDS ORDERED: Ipratropium/Albuterol 3 ML NEB NEB SCH (10:30)
[2023-05-23] MEDS: Potassium Chloride 20 MEQ TAB PO SCH (16:30)
[2023-05-23] MEDS: cefTRIAXone\\ROCEPHIN 1 GM in Sodium Chloride 0.9% 100 ML IVPB SCH (20:14)
[2023-05-23] MEDS: Multivit, Therapeutic 1 TAB PO SCH (20:15)
[2023-05-23] MEDS: Gabapentin 300 MG CAP PO SCH (20:15)
[2023-05-23] MEDS: Cyanocobalamin (Vitamin B-12) 1,000 MCG TAB PO SCH (20:16)
[2023-05-23] MEDS: Acetaminophen 325 MG TAB PO SCH (20:16)
[2023-05-23] MEDS: Senokot S 8.6-50 MG TAB PO SCH (20:16)
[2023-05-23] MEDS: Folic Acid 1 MG TAB PO SCH (20:16)
[2023-05-23] MEDS ORDERED: hydrOXYzine 25 MG TAB PO SCH (23:45)
[2023-05-24] MEDS: Ipratropium/Albuterol 3 ML NEB NEB SCH ×6 (02:15→22:41)
[2023-05-24 04:41] LABS: #Monocytes 0.8 thou/uL (0.11-0.59); #Neutrophils 6.4 thou/uL (1.40-6.50); %Basophils 0.1 % (0.0-1.0); %Eosinophils 0.2 % (0.0-10.0); %Lymphocytes 21.7 % (21.0-51.0); %Monocytes 8.2 % (0.0-10.0); %Neutrophils 69.3 % (42.0-75.0); Hematocrit 33.3 % (36.0-47.0); Hemoglobin 10.1 g/dL (12.0-16.0); Mean Corpuscular HGB CONC 30.3 g/dL (32.0-36.0); Mean Corpuscular Hemoglobin 25.1 pg (27.0-31.0); Mean Corpuscular Volume 82.6 fl (78.0-98.0); Mean Platelet Volume 10.3 fL (7.4-10.4); Platelet Count 356 10x3/uL (130-400); RBC Distribution Width 16.7 % (11.5-14.5); Red Blood Cell (RBC) Count 4.03 mill/uL (4.20-5.40); White Blood Cell (WBC) Count 9.2 10x3/uL (4.8-10.8)
[2023-05-24 05:14] LABS: Anion Gap 12 mmol/L (10-20); BUN (Urea Nitrogen) 27 mg/dL (9.8-20.1); Calc. Creatinine Clearance 141 mL/min (70-130); Calcium 9.3 mg/dL (7.8-10.44); Carbon Dioxide 28 mmol/L (23-31); Chloride 100 mmol/L (98-107); Estimated GFR 69; Glucose 129 mg/dL (83-110); Magnesium 2.1 mg/dL (1.6-2.6); Phosphorus 2.7 mg/dL (2.3-4.7); Potassium 3.7 mmol/L (3.5-5.1); Sodium 136 mmol/L (136-145)
[2023-05-24] MEDS: Levothyroxine 150 MCG TAB PO SCH (05:30)
[2023-05-24] MEDS: Senokot S 8.6-50 MG TAB PO SCH ×2 (09:40→20:30)
[2023-05-24] MEDS: Furosemide 40 MG TAB PO SCH (09:40)
[2023-05-24] MEDS: Apixaban 5 MG TAB PO SCH ×2 (09:41→20:31)
[2023-05-24] MEDS: Gabapentin 300 MG CAP PO SCH ×2 (09:42→20:31)
[2023-05-24] MEDS: AcetaZOLAMIDE 250 MG TAB PO SCH ×2 (09:42→20:30)
[2023-05-24] MEDS: Acetaminophen 325 MG TAB PO SCH ×3 (09:43→20:30)
[2023-05-24] MEDS: Aspirin 81 mg Enteric Coated Tablet PO SCH (09:43)
[2023-05-24] MEDS: Potassium Chloride 20 MEQ TAB PO SCH ×2 (09:44→17:17)
[2023-05-24] MEDS: methylPREDNISolone Sod Succ 40 MG VIAL IVP SCH (09:45)
[2023-05-24] MEDS: Cyanocobalamin (Vitamin B-12) 1,000 MCG TAB PO SCH (20:30)
[2023-05-24] MEDS: Folic Acid 1 MG TAB PO SCH (20:30)
[2023-05-24] MEDS: Multivit, Therapeutic 1 TAB PO SCH (20:30)
[2023-05-24] MEDS: cefTRIAXone\\ROCEPHIN 1 GM in Sodium Chloride 0.9% 100 ML IVPB SCH (20:31)
[2023-05-24] MEDS: Polyethylene Glycol 3350 17 GM Packet PO SCH (20:31)
[2023-05-25] MEDS: Ipratropium/Albuterol 3 ML NEB NEB SCH ×5 (02:07→23:42)
[2023-05-25] MEDS: Acetaminophen 325 MG TAB PO PRN ×2 (03:17→15:15)
[2023-05-25] MEDS: Levothyroxine 150 MCG TAB PO SCH (04:34)
[2023-05-25 04:35] LABS: #Eosinphils 0.1 thou/uL (0.0-0.7); #Monocytes 0.6 thou/uL (0.11-0.59); #Neutrophils 5.1 thou/uL (1.40-6.50); %Basophils 0.2 % (0.0-1.0); %Eosinophils 0.7 % (0.0-10.0); %Monocytes 7.1 % (0.0-10.0); %Neutrophils 60.4 % (42.0-75.0); Hematocrit 33.5 % (36.0-47.0); Hemoglobin 10.2 g/dL (12.0-16.0); Mean Corpuscular HGB CONC 30.4 g/dL (32.0-36.0); Mean Corpuscular Hemoglobin 25.2 pg (27.0-31.0); Mean Corpuscular Volume 82.9 fl (78.0-98.0); Mean Platelet Volume 10.2 fL (7.4-10.4); Platelet Count 365 10x3/uL (130-400); RBC Distribution Width 16.7 % (11.5-14.5); Red Blood Cell (RBC) Count 4.04 mill/uL (4.20-5.40); White Blood Cell (WBC) Count 8.4 10x3/uL (4.8-10.8)
[2023-05-25 04:56] LABS: Anion Gap 12 mmol/L (10-20); BUN (Urea Nitrogen) 25 mg/dL (9.8-20.1); Calc. Creatinine Clearance 158 mL/min (70-130); Calcium 9.3 mg/dL (7.8-10.44); Carbon Dioxide 27 mmol/L (23-31); Chloride 103 mmol/L (98-107); Estimated GFR 81; Glucose 110 mg/dL (83-110); Potassium 3.9 mmol/L (3.5-5.1); Sodium 138 mmol/L (136-145)
[2023-05-25] MEDS: Acetaminophen 325 MG TAB PO SCH ×3 (08:18→20:50)
[2023-05-25] MEDS: Furosemide 40 MG TAB PO SCH (08:18)
[2023-05-25] MEDS: Potassium Chloride 20 MEQ TAB PO SCH ×2 (08:18→15:15)
[2023-05-25] MEDS: AcetaZOLAMIDE 250 MG TAB PO SCH ×2 (08:19→20:52)
[2023-05-25] MEDS: Aspirin 81 mg Enteric Coated Tablet PO SCH (08:19)
[2023-05-25] MEDS: Senokot S 8.6-50 MG TAB PO SCH ×2 (08:19→20:58)
[2023-05-25] MEDS: Apixaban 5 MG TAB PO SCH ×2 (08:19→20:52)
[2023-05-25] MEDS: Gabapentin 300 MG CAP PO SCH ×2 (08:19→20:52)
[2023-05-25] MEDS: methylPREDNISolone Sod Succ 40 MG VIAL IVP SCH (08:20)
[2023-05-25] MEDS: Folic Acid 1 MG TAB PO SCH (20:52)
[2023-05-25] MEDS: Multivit, Therapeutic 1 TAB PO SCH (20:53)
[2023-05-25] MEDS: cefTRIAXone\\ROCEPHIN 1 GM in Sodium Chloride 0.9% 100 ML IVPB SCH (20:53)
[2023-05-25] MEDS: Cyanocobalamin (Vitamin B-12) 1,000 MCG TAB PO SCH (20:53)
[2023-05-25] MEDS: Polyethylene Glycol 3350 17 GM Packet PO SCH (20:59)
[2023-05-26] MEDS: Acetaminophen 325 MG TAB PO PRN ×2 (02:20→16:52)
[2023-05-26 04:36] LABS: #Eosinphils 0.2 thou/uL (0.0-0.7); #Monocytes 0.9 thou/uL (0.11-0.59); #Neutrophils 5.8 thou/uL (1.40-6.50); %Basophils 0.3 % (0.0-1.0); %Eosinophils 2.2 % (0.0-10.0); %Lymphocytes 31.6 % (21.0-51.0); %Monocytes 8.9 % (0.0-10.0); %Neutrophils 56.2 % (42.0-75.0); Hematocrit 34.6 % (36.0-47.0); Hemoglobin 10.8 g/dL (12.0-16.0); Mean Corpuscular HGB CONC 31.2 g/dL (32.0-36.0); Mean Corpuscular Hemoglobin 25.4 pg (27.0-31.0); Mean Corpuscular Volume 81.2 fl (78.0-98.0); Platelet Count 378 10x3/uL (130-400); RBC Distribution Width 16.8 % (11.5-14.5); Red Blood Cell (RBC) Count 4.26 mill/uL (4.20-5.40); White Blood Cell (WBC) Count 10.2 10x3/uL (4.8-10.8)
[2023-05-26 05:02] LABS: Anion Gap 13 mmol/L (10-20); BUN (Urea Nitrogen) 26 mg/dL (9.8-20.1); Calc. Creatinine Clearance 150 mL/min (70-130); Calcium 9.5 mg/dL (7.8-10.44); Carbon Dioxide 25 mmol/L (23-31); Chloride 101 mmol/L (98-107); Estimated GFR 77; Glucose 115 mg/dL (83-110); Magnesium 1.9 mg/dL (1.6-2.6); Potassium 3.8 mmol/L (3.5-5.1); Sodium 135 mmol/L (136-145)
[2023-05-26] MEDS: Levothyroxine 150 MCG TAB PO SCH (05:24)
[2023-05-26] MEDS ORDERED: Furosemide 40 MG/4 ML VIAL SLOW IVP SCH (06:15)
[2023-05-26] MEDS ORDERED: Magnesium 2 GM/50 ML(in water) 2 GM in Premix Bag 1 BAG IVPB SCH (08:00)
[2023-05-26] MEDS: Ipratropium/Albuterol 3 ML NEB NEB SCH ×4 (08:03→23:06)
[2023-05-26] MEDS ORDERED: Potassium Chloride 20 MEQ TAB PO SCH (08:30)
[2023-05-26] MEDS: Apixaban 5 MG TAB PO SCH ×2 (09:34→21:35)
[2023-05-26] MEDS: Aspirin 81 mg Enteric Coated Tablet PO SCH (09:34)
[2023-05-26] MEDS: Furosemide 40 MG TAB PO SCH (09:35)
[2023-05-26] MEDS: Gabapentin 300 MG CAP PO SCH ×2 (09:35→21:35)
[2023-05-26] MEDS: Acetaminophen 325 MG TAB PO SCH ×3 (09:36→21:33)
[2023-05-26] MEDS: methylPREDNISolone Sod Succ 40 MG VIAL IVP SCH (09:37)
[2023-05-26] MEDS: Senokot S 8.6-50 MG TAB PO SCH ×2 (09:40→21:36)
[2023-05-26] MEDS ORDERED: Nitroglycerin 0.4 MG TAB (25 Tab Bottle) SL PRN (10:06)
[2023-05-26 14:28] LABS: Troponin I 0.269 ng/mL (< 0.028)
[2023-05-26 16:09] LABS: Troponin I 0.196 ng/mL (< 0.028)
[2023-05-26] MEDS: Potassium Chloride 20 MEQ TAB PO SCH (16:56)
[2023-05-26] MEDS: Folic Acid 1 MG TAB PO SCH (21:33)
[2023-05-26] MEDS: Cyanocobalamin (Vitamin B-12) 1,000 MCG TAB PO SCH (21:36)
[2023-05-26] MEDS: Multivit, Therapeutic 1 TAB PO SCH (21:37)
[2023-05-26] MEDS: Polyethylene Glycol 3350 17 GM Packet PO SCH (21:37)
[2023-05-27] MEDS ORDERED: Ketorolac Tromethamine 30 MG/ML VIAL IVP SCH (03:00)
[2023-05-27 06:04] LABS: #Eosinphils 0.2 thou/uL (0.0-0.7); #Monocytes 0.9 thou/uL (0.11-0.59); #Neutrophils 7.4 thou/uL (1.40-6.50); %Basophils 0.2 % (0.0-1.0); %Eosinophils 1.5 % (0.0-10.0); %Lymphocytes 20.7 % (21.0-51.0); %Monocytes 8.1 % (0.0-10.0); %Neutrophils 68.8 % (42.0-75.0); Hematocrit 35.2 % (36.0-47.0); Hemoglobin 10.9 g/dL (12.0-16.0); Mean Corpuscular Hemoglobin 25.3 pg (27.0-31.0); Mean Corpuscular Volume 81.7 fl (78.0-98.0); Mean Platelet Volume 10.2 fL (7.4-10.4); Platelet Count 357 10x3/uL (130-400); RBC Distribution Width 16.9 % (11.5-14.5); Red Blood Cell (RBC) Count 4.31 mill/uL (4.20-5.40); White Blood Cell (WBC) Count 10.7 10x3/uL (4.8-10.8)
[2023-05-27] MEDS: Levothyroxine 150 MCG TAB PO SCH (06:44)
[2023-05-27 07:12] LABS: Anion Gap 13 mmol/L (10-20); Calc. Creatinine Clearance 139 mL/min (70-130); Calcium 9.2 mg/dL (7.8-10.44); Carbon Dioxide 26 mmol/L (23-31); Estimated GFR 71; Glucose 105 mg/dL (83-110); Magnesium 2.3 mg/dL (1.6-2.6)
[2023-05-27 08:17] LABS: BUN (Urea Nitrogen) 29 mg/dL (9.8-20.1); Chloride 100 mmol/L (98-107); Potassium 3.9 mmol/L (3.5-5.1); Sodium 136 mmol/L (136-145)
[2023-05-27] MEDS ORDERED: Furosemide 20 MG TAB PO SCH (09:00)
[2023-05-27] MEDS: Aspirin 81 mg Enteric Coated Tablet PO SCH (09:32)
[2023-05-27] MEDS: Gabapentin 300 MG CAP PO SCH ×2 (09:33→22:37)
[2023-05-27] MEDS: Potassium Chloride 20 MEQ TAB PO SCH ×2 (09:33→17:18)
[2023-05-27] MEDS: Apixaban 5 MG TAB PO SCH ×2 (09:33→22:37)
[2023-05-27] MEDS: predniSONE 20 MG TAB PO SCH (09:33)
[2023-05-27] MEDS: Acetaminophen 325 MG TAB PO SCH ×3 (09:34→22:38)
[2023-05-27] MEDS: Senokot S 8.6-50 MG TAB PO SCH ×2 (09:35→22:38)
[2023-05-27] MEDS: Ipratropium/Albuterol 3 ML NEB NEB SCH ×4 (10:39→23:17)
[2023-05-27] MEDS ORDERED: Polyethylene Glycol 3350 17 GM Packet PO PRN (11:04)
[2023-05-27 12:21] VITALS: BMI 47.7
[2023-05-27] MEDS ORDERED: Furosemide 40 MG TAB PO SCH (17:15)
[2023-05-27] MEDS: Folic Acid 1 MG TAB PO SCH (22:38)
[2023-05-27] MEDS: Multivit, Therapeutic 1 TAB PO SCH (22:38)
[2023-05-27] MEDS: Cyanocobalamin (Vitamin B-12) 1,000 MCG TAB PO SCH (22:38)
[2023-05-28] MEDS ORDERED: Calcium Carbonate 500 MG ChewTAB PO PRN (00:29)
[2023-05-28] MEDS ORDERED: Famotidine 20 MG TAB PO SCH (00:30)
[2023-05-28] MEDS ORDERED: Ibuprofen 200 MG TAB PO SCH ×2 (00:30)
[2023-05-28] MEDS ORDERED: Melatonin 3 MG TAB PO PRN (03:31)
[2023-05-28 04:45] LABS: #Eosinphils 0.2 thou/uL (0.0-0.7); #Monocytes 1.1 thou/uL (0.11-0.59); #Neutrophils 6.4 thou/uL (1.40-6.50); %Basophils 0.3 % (0.0-1.0); %Eosinophils 1.9 % (0.0-10.0); %Lymphocytes 21.2 % (21.0-51.0); %Monocytes 10.7 % (0.0-10.0); %Neutrophils 65.2 % (42.0-75.0); Hematocrit 33.4 % (36.0-47.0); Hemoglobin 10.6 g/dL (12.0-16.0); Mean Corpuscular HGB CONC 31.7 g/dL (32.0-36.0); Mean Corpuscular Hemoglobin 25.5 pg (27.0-31.0); Mean Corpuscular Volume 80.3 fl (78.0-98.0); Mean Platelet Volume 10.5 fL (7.4-10.4); Platelet Count 355 10x3/uL (130-400); RBC Distribution Width 16.9 % (11.5-14.5); Red Blood Cell (RBC) Count 4.16 mill/uL (4.20-5.40); White Blood Cell (WBC) Count 9.8 10x3/uL (4.8-10.8)
[2023-05-28] MEDS: Levothyroxine 150 MCG TAB PO SCH (05:00)
[2023-05-28 05:29] LABS: Anion Gap 13 mmol/L (10-20); BUN (Urea Nitrogen) 32 mg/dL (9.8-20.1); Calc. Creatinine Clearance 119 mL/min (70-130); Calcium 9.2 mg/dL (7.8-10.44); Carbon Dioxide 27 mmol/L (23-31); Chloride 97 mmol/L (98-107); Estimated GFR 59; Glucose 108 mg/dL (83-110); Sodium 133 mmol/L (136-145)
[2023-05-28] MEDS: Ipratropium/Albuterol 3 ML NEB NEB SCH ×2 (06:53→13:33)
[2023-05-28] MEDS: predniSONE 20 MG TAB PO SCH (09:02)
[2023-05-28] MEDS: Gabapentin 300 MG CAP PO SCH (09:02)
[2023-05-28] MEDS: Potassium Chloride 20 MEQ TAB PO SCH ×2 (09:02→17:17)
[2023-05-28] MEDS: Aspirin 81 mg Enteric Coated Tablet PO SCH (09:02)
[2023-05-28] MEDS: Acetaminophen 325 MG TAB PO SCH ×2 (09:02→15:29)
[2023-05-28] MEDS: Apixaban 5 MG TAB PO SCH (09:02)
[2023-05-28] MEDS: Furosemide 20 MG TAB PO SCH ×2 (09:03→15:29)
[2023-05-28] MEDS: Senokot S 8.6-50 MG TAB PO SCH (09:03)
[2023-05-28 11:33] VITALS: TEMP 97.9
[2023-05-28 16:43] VITALS: BP 137/80
== END 2023-05-28 18:13 | DRG 280 ==
LOC: ERS 17:35 → 2NO 20:52
PROVIDERS: ADMIT Student in an Organized Health Care Education/Training Program; ATTEND Internal Medicine
DX: I13.0 Hypertensive heart and chronic kidney disease with heart failure and stage 1 through stage 4 chronic kidney disease, or unspecified chronic kidney disease (principal); G93.41 Metabolic encephalopathy; I21.A1 Myocardial infarction type 2; I50.33 Acute on chronic diastolic (congestive) heart failure; J96.01 Acute respiratory failure with hypoxia; J96.02 Acute respiratory failure with hypercapnia; J44.1 Chronic obstructive pulmonary disease with (acute) exacerbation; J81.1 Chronic pulmonary edema; Z68.43 Body mass index [BMI] 50.0-59.9, adult; Z51.5 Encounter for palliative care; E03.9 Hypothyroidism, unspecified; E66.01 Morbid (severe) obesity due to excess calories; I48.0 Paroxysmal atrial fibrillation; M19.90 Unspecified osteoarthritis, unspecified site; N18.2 Chronic kidney disease, stage 2 (mild); D63.1 Anemia in chronic kidney disease; Z88.2 Allergy status to sulfonamides; Z88.8 Allergy status to other drugs, medicaments and biological substances; Z79.890 Hormone replacement therapy; Z79.899 Other long term (current) drug therapy; Z90.89 Acquired absence of other organs; E83.42 Hypomagnesemia
CPT/HCPCS: 36415; 51701; 71045; 80048; 80053; 81001; 82805; 83605; 83690; 83735; 83880; 84100; 84436; 84443; 84484; 85025; 85610; 85730; 87040; 93005; 93010; 93306; 93798; 94640; 94660; 94760; 96365; 96375; 97139; J0456; J0696; J1650; J1885; J1940; J2270; J2920; J3475; J3490; J7512; J7620; Q0162